=== PATIENT | female | born 1960 | race Caucasian/White ===

== ENCOUNTER 2018-10-01 10:53 | Inpatient (IN) | payer OTHER ==
[2018-10-01 11:09] VITALS: BMI 20.2
--- NOTE | 2018-10-01 14:50 | HP ---
CIWA Score - Admission Criteria [facility] Guidelines: Admission for Medically Managed Detox: Requires at least one of the followin. CIWA greater than 12 2. Seizures within the past 24 hours 3. Delirium tremens within the past 24 hours 4. Hallucinations within the past 24 hours 5. Acute intervention needed for co occurring medical disorder 6. Acute intervention needed for co occurring psychiatric disorder 7. Severe withdrawal that cannot be handled at a lower level of care (continued vomiting, continued diarrhea, abnormal vital signs) requiring intravenous medication and/or fluids 8. Admission ROS [facility] Chief Complaint: PATIENT PRESENTS FOR REHAB SERVICES FOR COCAINE AND ETOH DEPENDENCE. Allergies/Adverse Reactions: Allergies Allergy/AdvReac Type Severity Reaction Status Date / Time shellfish derived Allergy Severe Difficulty Verified 10/01/18 11:57 Breathing History of Present Illness: PATIENT PRESENTS FOR REHAB SERVICES FOR COCAINE AND ETOH DEPENDENCE. PATIENT COMPLETED DETOX TODAY 10/01 AT [facility]. PATIENT CURRENTLY ON MTD PROGRAM AT [facility] AND REPORTS CURRENT DOES OF 60MG DAILY AND LAST DOSE THIS MORNING. PATIENT STARTED DRINKING AT AGE 13, DRINKS UP TO 1.5 PINTS OF VODKA DAILY, LAST DRINK 09/26/18. PATIENT ALSO SMOKES 7-10 OF CRACK DAILY X 30 YEARS, LAST TIME SHE SMOKED WAS 09/26/18. +OCCASIONAL THC USE. HAS H/O IVDA WHILE ON MTD , 12 BAGS DAILY, LAST TIME SHE INJECTED 09/26/18. PATIENT + HX OF OVERDOSE. PATIENT DENIES SEIZURES AND FALLS. + BLACKOUTS AND DRINKING UPON WAKING UP. PATIENT PMH INCLUDES HIV + COMPLIANT WITH MEDICATION AND LAST DOSE YESTERDAY WHILE IN DETOX, HEP C (UNTREATED), SCHIZOPHRENIA AND ASTHMA/TOBACCO USE. PATIENT DENIES SI/HI. +SUICIDE ATTEMPT BY CUTTING WRISTS 2 MONTHS AGO. Exam Limitations: No Limitations - Ebola screening Have you traveled outside of the country in the last 21 days: No Have you had contact with anyone from an Ebola affected area: No Have you been sick,other than usual withdrawal symptoms: No Do you have a fever: No - Review of Systems Constitutional: Changes in sleep, Unexplained wgt Loss EENT: reports: Difficulty Swallowing Respiratory: reports: No Symptoms reported Cardiac: reports: No Symptoms Reported GI: reports: Constipated : reports: Urgency Musculoskeletal: reports: No Symptoms Reported Integumentary: reports: No Symptoms Reported Neuro: reports: No Symptoms reported Endocrine: reports: Unexplained Weight Loss Hematology: reports: Anemia Psychiatric: reports: Orientated x3, Anxious, Depressed Patient History - Patient Medical History Hx Anemia: No Hx Asthma: Yes Hx Chronic Obstructive Pulmonary Disease (COPD): No Hx Cancer: No Hx Cardiac Disorders: Yes (endocarditis) Hx Congestive Heart Failure: No Hx Hypertension: No Hx Hypercholesterolemia: No Hx Pacemaker: No HX Cerebrovascular Accident: No Hx Seizures: No Hx Dementia: No Hx Diabetes: No Hx Gastrointestinal Disorders: No Hx Liver Disease: No Hx Genitourinary Disorders: No Hx Sexually Transmitted Disorders: Yes Hx Renal Disease (ESRD): No Hx Thyroid Disease: No Hx Human Immunodeficiency Virus (HIV): Yes (diagnosed 1998) Hx Hepatitis C: Yes (untreated 2016) Hx Depression: Yes Hx Suicide Attempt: Yes (2017 self inflicted cuts) Hx Bipolar Disorder: No Hx Schizophrenia: Yes - Patient Surgical History Past Surgical History: Yes Hx Neurologic Surgery: No Hx Cataract Extraction: Yes (2000) Hx Cardiac Surgery: No Hx Lung Surgery: No Hx Breast Surgery: No Hx Breast Biopsy: No Hx Abdominal Surgery: Yes (Etopic 2008) Hx Appendectomy: No Hx Cholecystectomy: No Hx Genitourinary Surgery: No Hx Section: No Hx Orthopedic Surgery: No Hx Hysterectomy: No Anesthesia Reaction: No - PPD History Previous Implant?: Yes Documented Results: Negative w/o proof Implanted On Prior R Admission?: No PPD to be Administered?: Yes - Reproductive History Patient : No - Smoking Cessation Smoking history: Current every day smoker Have you smoked in the past 12 months: Yes Aproximately how many cigarettes per day: 40 Cigars Per Day: 0 Hx Chewing Tobacco Use: No Initiated information on smoking cessation: Yes 'Breaking Loose' booklet given: 10/01/18 - Substance & Tx. History Hx Alcohol Use: No Hx Substance Use: Yes Substance Use Type: Alcohol, Cocaine, Heroin, Prescribed Hx Substance Use Treatment: Yes (completed detox at [facility] today 09/03/18) - Substances Abused Alcohol Frequency: Daily Amount used: 2 pints of Vodka Age of first use: 15 Date of Last Use: 09/26/18 Heroin Route: Injection Frequency: Daily Amount used: 2 bundles Age of first use: 49 Date of Last Use: 09/26/18 Cocaine Route: Injection Frequency: Daily Amount used: $100 Age of first use: 21 Date of Last Use: 09/26/18 Family Disease History - Family Disease History Family Disease History: Diabetes: Father, Respiratory: Mother (tobacco use) Admission Physical Exam [facility] - Vital Signs Vital Signs: Vital Signs - 24 hr 10/01/18 10:57 Temperature 96.9 F L Pulse Rate 94 H Respiratory 18 Rate Blood Pressure 130/60 - Physical General Appearance: Yes: No Apparent Distress, Appropriately Dressed, Thin, Anxious HEENTM: Yes: Hearing grossly Normal, Normocephalic, Normal Voice, Pharynx Normal Respiratory: Yes: Chest Non-Tender, Lungs Clear, Normal Breath Sounds, No Respiratory Distress, No Accessory Muscle Use Neck: Yes: No masses,lesions,Nodules, Supple, Trachea in good position Breast: Yes: Breast Exam Deferred Cardiology: Yes: Regular Rhythm, Regular Rate, S1, S2 Abdominal: Yes: Normal Bowel Sounds, Non Tender, Soft Genitourinary: Yes: Uregency Back: Yes: Normal Inspection Musculoskeletal: Yes: full range of Motion, Gait Steady Extremities: Yes: Normal Inspection, Normal Range of Motion, Non-Tender Neurological: Yes: health policy analyst II-XII NML intact, Fully Oriented, Alert, Motor Strength 5/5, Normal Response, Depressed Affect, Other (ANXIOUS) Integumentary: Yes: Normal Color, Dry, Warm Lymphatic: Yes: Within Normal Limits - Diagnostic (1) Methadone maintenance therapy patient Current Visit: Yes Status: Chronic (2) Cocaine dependence Current Visit: Yes Status: Chronic Qualifiers: Substance use status: uncomplicated Qualified Code(s): F14.20 - Cocaine dependence, uncomplicated (3) Marijuana dependence Current Visit: Yes Status: Chronic (4) Tobacco use disorder Current Visit: Yes Status: Chronic (5) HIV positive Current Visit: Yes Status: Chronic (6) Schizophrenia Current Visit: Yes Status: Chronic Qualifiers: Schizophrenia type: unspecified Qualified Code(s): F20.9 - Schizophrenia, unspecified (7) Weight loss Current Visit: Yes Status: Acute (8) Asthma Current Visit: Yes Status: Chronic Qualifiers: Asthma complication type: unspecified Cleared for Admission [facility] - Detox or Rehab Claeared for Rehab Admission: Yes [facility] Breath Alcohol Content Breath Alcohol Content: 0 Urine Pregancy Test - Result Urine Test Results: Negative- NO Line Present Urine Drug Screen - Results Drug Screen Negative: No Urine Drug Screen Results: BZO-Benzodiazepines, MTD-Methadone Inpatient Rehab Admission - Initial Determination Are CD services needed?: Yes Free of communicable disease: Yes Not in need of hospitalization: No - Rehab Admission Criteria Previous failed treatment: Yes Poor recovery environment: Yes Comorbidities: Yes Lacks judgement: Yes Patient is meeting Inpatient Rehab admission criteria:: Yes
[2018-10-01] MEDS ORDERED: guaiFENesin/D-METHORPHAN HB 10 ML UNIT-DOSE CUPS PO PRN (15:12)
[2018-10-01] MEDS ORDERED: MENTHOL/PHENOL 1 EACH UD MM PRN (15:12)
[2018-10-01] MEDS ORDERED: MAGNESIUM CITRATE 300 ML BOTTLE PO PRN (15:12)
[2018-10-01] MEDS ORDERED: NICOTINE POLACRILEX 2 MG GUM BC PRN (15:12)
[2018-10-01] MEDS ORDERED: MAG HYDROX/AL HYDROX/SIMETH 30 ML UNIT-DOSE CUP PO PRN (15:12)
[2018-10-01] MEDS ORDERED: hydrOXYzine PAMOATE 50 MG CAPSULE (FP) PO PRN (15:12)
[2018-10-01] MEDS ORDERED: MAGNESIUM HYDROX 2400MG/30ML ORAL SUSPENSION 30 ML CUP PO PRN (15:12)
[2018-10-01] MEDS ORDERED: IBUPROFEN 400 MG TABLET (FP) PO PRN (15:12)
[2018-10-01] MEDS ORDERED: LOPERAMIDE HCL 2 MG CAPSULE PO PRN (15:12)
[2018-10-01] MEDS ORDERED: P-EPHED 60MG/TRIPROLIDI 2.5MG TABLET PO PRN (15:12)
[2018-10-01] MEDS ORDERED: ALBUTEROL SO4 8 GM HFA INHALER IH PRN (15:14)
[2018-10-01] MEDS ORDERED: TUBERCULIN PPD 5 TU/0.1ML VIAL ID ONE ×2 (17:05→22:23)
[2018-10-01] MEDS: THIAMINE HCL 100 MG TABLET (FP) PO SCH (21:11)
[2018-10-01] MEDS ORDERED: MELATONIN 5 MG TABLETS PO PRN (22:00)
[2018-10-01] MEDS ORDERED: PT OWN MED DRAWER 7, Y5N ONE (22:23)
[2018-10-02 02:10] LABS: URINE APPEARANCE CLEAR; URINE BILIRUBIN NEGATIVE (<2.0 mg/dL); URINE COLOR LTYELLOW; URINE GLUCOSE (UA) NEGATIVE (NEGATIVE); URINE KETONE NEGATIVE (NEGATIVE); URINE LEUK ESTERASE NEGATIVE (NEGATIVE); URINE NITRITE NEGATIVE (NEGATIVE); URINE PROTEIN NEGATIVE (NEGATIVE); URINE UROBILINOGEN NEGATIVE mg/dL (0.2-1.0)
[2018-10-02] MEDS ORDERED: METHADONE HCL 10 MG TABLET PO ONE (08:51)
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
[2018-10-02] MEDS ORDERED: METHADONE 40 MG, METHADONE 20 MG PO ONE (09:45)
[2018-10-02] MEDS: NICOTINE 21 MG/24 HOURS TOPICAL PATCH TD SCH (10:33)
[2018-10-02] MEDS: ELVITEG/COB/EMTRI/TENOF (GENVOYA) TABLET (NF) PO SCH (10:34)
[2018-10-02] MEDS: PRENATAL VITAMINS W/ FOLIC ACID TABLET (FP) PO SCH (10:35)
[2018-10-02] MEDS ORDERED: METHADONE HCL 40 MG DISPERSABLE TABLET ONE (10:37)
[2018-10-02] MEDS ORDERED: METHADONE HCL 10 MG TABLET ONE (10:37)
[2018-10-02] MEDS ORDERED: FLU VACCINE QUAD 60 MCG/0.5 ML (MDV 18-19) IM ONE (12:00)
[2018-10-02 12:35] LABS: HEMATOCRIT 25.1 % (32.4-45.2); HEMOGLOBIN 8.3 GM/dL (10.7-15.3); MCH 28.6 pg (25.7-33.7); MEAN CELL VOLUME 86.6 fl (80-96); MEAN PLT VOLUME 8.8 fl (7.5-11.1); PLATELET COUNT 112 K/MM3 (134-434); RDW 17.9 % (11.6-15.6); WHITE BLOOD COUNT 4.6 K/mm3 (4.0-10.0)
[2018-10-02 12:44] LABS: ALBUMIN 2.7 g/dl (3.4-5.0); ALK PHOS 84 U/L (45-117); ANION GAP 6 MMOL/L (8-16); BILIRUBIN,TOTAL 0.2 mg/dL (0.2-1); BLOOD UREA NITROGEN 13 mg/dL (7-18); CALCIUM 8.1 mg/dL (8.5-10.1); CHLORIDE 111 mmol/L (98-107); CO2 28 mmol/L (21-32); CREATININE 0.6 mg/dL (0.55-1.3); GLUCOSE,RANDOM 121 mg/dL (74-106); POTASSIUM 4.2 mmol/L (3.5-5.1); SGOT/AST 15 U/L (15-37); SGPT/ALT 19 U/L (13-61); SODIUM 145 mmol/L (136-145); TOT PROT 6.7 g/dl (6.4-8.2)
[2018-10-02] MEDS: GABAPENTIN 400 MG CAPSULE (FP) PO SCH ×2 (13:34→21:47)
[2018-10-02] MEDS: THIAMINE HCL 100 MG TABLET (FP) PO SCH (21:45)
[2018-10-02] MEDS: OLANZapine 10 MG TABLET PO SCH (21:47)
[2018-10-02] MEDS: traZODone HCL 100 MG TABLET (FP) PO SCH (21:47)
[2018-10-02] MEDS: SERTRALINE HCL 50 MG TABLET (FP) PO SCH (21:47)
[2018-10-03] MEDS ORDERED: METHADONE HCL 10 MG TABLET PO SCH (06:00)
[2018-10-03] MEDS ORDERED: METHADONE HCL 40 MG DISPERSABLE TABLET ONE (06:03)
[2018-10-03] MEDS ORDERED: METHADONE HCL 10 MG TABLET ONE (06:03)
--- NOTE | 2018-10-03 08:09 | PN ---
[facility] Progress Note Note: I was notified by the nurse, Ms. Yuliya Solano that patient had a temperature of T102.7F Vital Signs Temperature 102.7 F H 10/03/18 07:39 Pulse Rate 103 H 10/03/18 07:39 Respiratory Rate 18 10/03/18 07:39 Blood Pressure 136/75 10/03/18 07:39 O2 Sat by Pulse Oximetry (%) Action: Labs - CBC, BMP and urinalysis ordered Tylenol as ordered
[2018-10-03] MEDS: METHADONE 40 MG, METHADONE 20 MG PO SCH (08:49)
[2018-10-03] MEDS: GABAPENTIN 400 MG CAPSULE (FP) PO SCH ×3 (08:50→22:02)
[2018-10-03] MEDS: ACETAMINOPHEN 325 MG TABLET (FP) PO PRN ×2 (09:35→22:03)
[2018-10-03] MEDS ORDERED: PT OWN MED DRAWER 7, Y5N ONE (10:39)
[2018-10-03] MEDS: PRENATAL VITAMINS W/ FOLIC ACID TABLET (FP) PO SCH (10:40)
[2018-10-03] MEDS: ELVITEG/COB/EMTRI/TENOF (GENVOYA) TABLET (NF) PO SCH (10:40)
[2018-10-03] MEDS: NICOTINE 21 MG/24 HOURS TOPICAL PATCH TD SCH (10:40)
[2018-10-03 13:32] LABS: HEMATOCRIT 28.1 % (32.4-45.2); HEMOGLOBIN 9.3 GM/dL (10.7-15.3); MCH 28.6 pg (25.7-33.7); MCHC 33.1 g/dl (32.0-36.0); MEAN CELL VOLUME 86.4 fl (80-96); MEAN PLT VOLUME 8.8 fl (7.5-11.1); PLATELET COUNT 152 K/MM3 (134-434); RBC 3.25 M/mm3 (3.60-5.2); RDW 17.8 % (11.6-15.6); WHITE BLOOD COUNT 7.8 K/mm3 (4.0-10.0)
[2018-10-03 13:49] LABS: ANION GAP 3 MMOL/L (8-16); BLOOD UREA NITROGEN 13 mg/dL (7-18); CHLORIDE 104 mmol/L (98-107); CO2 31 mmol/L (21-32); CREATININE 0.7 mg/dL (0.55-1.3); GLUCOSE,RANDOM 104 mg/dL (74-106); SODIUM 137 mmol/L (136-145)
--- NOTE | 2018-10-03 13:55 | PN ---
[facility] Progress Note Note: patient running temp last night and this morning alert,oriented x 3 latest temp 97.5 no complaint Vital Signs Temperature 98.5 F 10/03/18 13:38 Pulse Rate 98 H 10/03/18 09:26 Respiratory Rate 16 10/03/18 09:26 Blood Pressure 107/68 10/03/18 09:26 O2 Sat by Pulse Oximetry (%) CBC WBC 7.8 K/mm3 (4.0-10.0) 10/03/18 11:00 RBC 3.25 M/mm3 (3.60-5.2) L 10/03/18 11:00 Hgb 9.3 GM/dL (10.7-15.3) L 10/03/18 11:00 Hct 28.1 % (32.4-45.2) L 10/03/18 11:00 MCV 86.4 fl (80-96) 10/03/18 11:00 MCH 28.6 pg (25.7-33.7) 10/03/18 11:00 MCHC 33.1 g/dl (32.0-36.0) 10/03/18 11:00 RDW 17.8 % (11.6-15.6) H 10/03/18 11:00 Plt Count 152 K/MM3 (134-434) D 10/03/18 11:00 MPV 8.8 fl (7.5-11.1) 10/03/18 11:00 CMP Sodium 137 mmol/L (136-145) 10/03/18 10:50 Potassium 5.0 mmol/L (3.5-5.1) 10/03/18 10:50 Chloride 104 mmol/L (98-107) 10/03/18 10:50 Carbon Dioxide 31 mmol/L (21-32) 10/03/18 10:50 Anion Gap 3 MMOL/L (8-16) L 10/03/18 10:50 BUN 13 mg/dL (7-18) 10/03/18 10:50 Creatinine 0.7 mg/dL (0.55-1.3) 10/03/18 10:50 Creat Clearance w eGFR > 60 (>60) 10/03/18 10:50 Random Glucose 104 mg/dL (74-106) 10/03/18 10:50 Calcium 8.0 mg/dL (8.5-10.1) L 10/03/18 10:50 Total Bilirubin 0.2 mg/dL (0.2-1) 10/02/18 10:59 AST 15 U/L (15-37) 10/02/18 10:59 ALT 19 U/L (13-61) 10/02/18 10:59 Alkaline Phosphatase 84 U/L (45-117) 10/02/18 10:59 Total Protein 6.7 g/dl (6.4-8.2) 10/02/18 10:59 Albumin 2.7 g/dl (3.4-5.0) L 10/02/18 10:59 Laboratory Last Values WBC 7.8 K/mm3 (4.0-10.0) 10/03/18 11:00 RBC 3.25 M/mm3 (3.60-5.2) L 10/03/18 11:00 Hgb 9.3 GM/dL (10.7-15.3) L 10/03/18 11:00 Hct 28.1 % (32.4-45.2) L 10/03/18 11:00 MCV 86.4 fl (80-96) 10/03/18 11:00 MCH 28.6 pg (25.7-33.7) 10/03/18 11:00 MCHC 33.1 g/dl (32.0-36.0) 10/03/18 11:00 RDW 17.8 % (11.6-15.6) H 10/03/18 11:00 Plt Count 152 K/MM3 (134-434) D 10/03/18 11:00 MPV 8.8 fl (7.5-11.1) 10/03/18 11:00 Sodium 137 mmol/L (136-145) 10/03/18 10:50 Potassium 5.0 mmol/L (3.5-5.1) 10/03/18 10:50 Chloride 104 mmol/L (98-107) 10/03/18 10:50 Carbon Dioxide 31 mmol/L (21-32) 10/03/18 10:50 Anion Gap 3 MMOL/L (8-16) L 10/03/18 10:50 BUN 13 mg/dL (7-18) 10/03/18 10:50 Creatinine 0.7 mg/dL (0.55-1.3) 10/03/18 10:50 Creat Clearance w eGFR > 60 (>60) 10/03/18 10:50 Random Glucose 104 mg/dL (74-106) 10/03/18 10:50 Calcium 8.0 mg/dL (8.5-10.1) L 10/03/18 10:50 Total Bilirubin 0.2 mg/dL (0.2-1) 10/02/18 10:59 AST 15 U/L (15-37) 10/02/18 10:59 ALT 19 U/L (13-61) 10/02/18 10:59 Alkaline Phosphatase 84 U/L (45-117) 10/02/18 10:59 Total Protein 6.7 g/dl (6.4-8.2) 10/02/18 10:59 Albumin 2.7 g/dl (3.4-5.0) L 10/02/18 10:59 Urine Color Ltyellow 10/02/18 00:30 Urine Appearance Clear 10/02/18 00:30 Urine pH 6.0 (5.0-8.0) 10/02/18 00:30 Ur Specific [place] 1.012 (1.010-1.035) 10/02/18 00:30 Urine Protein Negative (NEGATIVE) 10/02/18 00:30 Urine Glucose (UA) Negative (NEGATIVE) 10/02/18 00:30 Urine Ketones Negative (NEGATIVE) 10/02/18 00:30 Urine Blood Negative (NEGATIVE) 10/02/18 00:30 Urine Nitrite Negative (NEGATIVE) 10/02/18 00:30 Urine Bilirubin Negative (<2.0 mg/dL) 10/02/18 00:30 Urine Urobilinogen Negative mg/dL (0.2-1.0) 10/02/18 00:30 Ur Leukocyte Esterase Negative (NEGATIVE) 10/02/18 00:30 RPR Titer Nonreactive (NONREACTIVE) 10/02/18 10:59 alert,oriented x 3 no complaint heent normal lung clear,no wheezing no calf tenderness treatment continue oral fluid ,hydration,close monitoring
[2018-10-03 15:38] LABS: URINE APPEARANCE CLEAR; URINE BILIRUBIN NEGATIVE (<2.0 mg/dL); URINE COLOR LTYELLOW; URINE GLUCOSE (UA) NEGATIVE (NEGATIVE); URINE KETONE NEGATIVE (NEGATIVE); URINE LEUK ESTERASE NEGATIVE (NEGATIVE); URINE NITRITE NEGATIVE (NEGATIVE); URINE PROTEIN NEGATIVE (NEGATIVE); URINE UROBILINOGEN NEGATIVE mg/dL (0.2-1.0)
[2018-10-03] MEDS: traZODone HCL 100 MG TABLET (FP) PO SCH (22:02)
[2018-10-03] MEDS: SERTRALINE HCL 50 MG TABLET (FP) PO SCH (22:02)
[2018-10-03] MEDS: THIAMINE HCL 100 MG TABLET (FP) PO SCH (22:02)
[2018-10-03] MEDS: OLANZapine 10 MG TABLET PO SCH (22:04)
[2018-10-04] MEDS ORDERED: METHADONE HCL 10 MG TABLET ONE (06:06)
[2018-10-04] MEDS ORDERED: METHADONE HCL 40 MG DISPERSABLE TABLET ONE (06:07)
[2018-10-04] MEDS: GABAPENTIN 400 MG CAPSULE (FP) PO SCH ×3 (08:25→22:05)
[2018-10-04] MEDS: METHADONE 40 MG, METHADONE 20 MG PO SCH (08:27)
[2018-10-04] MEDS: ELVITEG/COB/EMTRI/TENOF (GENVOYA) TABLET (NF) PO SCH (10:06)
[2018-10-04] MEDS: PRENATAL VITAMINS W/ FOLIC ACID TABLET (FP) PO SCH (10:06)
[2018-10-04] MEDS: NICOTINE 21 MG/24 HOURS TOPICAL PATCH TD SCH (10:06)
--- NOTE | 2018-10-04 13:41 | PN ---
S Progress Note Note: urine for c/s showed postive for lactose fermenting bacilli uti treated with bactrim ds 1 tab po bid for 7 days fluid and water Vital Signs Temperature 97.4 F L 10/04/18 07:31 Pulse Rate 70 10/04/18 07:31 Respiratory Rate 18 10/04/18 07:31 Blood Pressure 121/66 10/04/18 07:31 O2 Sat by Pulse Oximetry (%) close monitoring
[2018-10-04] MEDS: SULFAMETHOXAZOLE/TRIMETHOPRIM 800MG/160MG D.S. TABLET PO SCH ×2 (14:15→21:59)
[2018-10-04] MEDS: ACETAMINOPHEN 325 MG TABLET (FP) PO PRN (21:59)
[2018-10-04] MEDS: traZODone HCL 100 MG TABLET (FP) PO SCH (22:05)
[2018-10-04] MEDS: SERTRALINE HCL 50 MG TABLET (FP) PO SCH (22:05)
[2018-10-04] MEDS: OLANZapine 10 MG TABLET PO SCH (22:05)
[2018-10-04] MEDS: THIAMINE HCL 100 MG TABLET (FP) PO SCH (22:05)
[2018-10-05] MEDS: ACETAMINOPHEN 325 MG TABLET (FP) PO PRN ×2 (04:30→17:32)
[2018-10-05] MEDS ORDERED: METHADONE HCL 40 MG DISPERSABLE TABLET ONE (05:50)
[2018-10-05] MEDS ORDERED: METHADONE HCL 10 MG TABLET ONE (05:50)
[2018-10-05] MEDS ORDERED: PT OWN MED DRAWER 7, Y5N ONE (05:53)
[2018-10-05] MEDS: METHADONE 40 MG, METHADONE 20 MG PO SCH (06:09)
[2018-10-05] MEDS: GABAPENTIN 400 MG CAPSULE (FP) PO SCH ×3 (06:56→21:52)
[2018-10-05] MEDS: PRENATAL VITAMINS W/ FOLIC ACID TABLET (FP) PO SCH (10:55)
[2018-10-05] MEDS: ELVITEG/COB/EMTRI/TENOF (GENVOYA) TABLET (NF) PO SCH (10:55)
[2018-10-05] MEDS: NICOTINE 21 MG/24 HOURS TOPICAL PATCH TD SCH (10:55)
[2018-10-05] MEDS: SULFAMETHOXAZOLE/TRIMETHOPRIM 800MG/160MG D.S. TABLET PO SCH ×2 (10:55→21:52)
--- NOTE | 2018-10-05 13:23 | PN ---
[facility] Progress Note Note: PT C/O SORE THROAT. HX HIV+ AND ON GENVOYA. P ON BACTRIM DS 1 TAB PO X 7 DAYS FOR UTI. Vital Signs - 24 hr 10/04/18 10/04/18 10/05/18 22:10 23:58 00:30 Temperature 104.7 F H 102.4 F H Pulse Rate 109 H Respiratory 18 18 Rate Blood Pressure 167/64 10/05/18 10/05/18 10/05/18 03:30 04:39 07:27 Temperature 100.9 F H 98.0 F Pulse Rate 85 94 H Respiratory 18 18 18 Rate Blood Pressure 109/67 103/58 L ORAL EXAM:WHITE PATCHES OF EXUDATE ON OROPHARYNDEAL PILLARS AND TONGUE. THROAT SLIGHTLY INJECTED. A:ORAL CANDIDIASIS DRY MUCOUS MEMBRANE OF MOUTH/DRY SCALY LIPS/TONGUE(PT PICKING ON TONGUE/LIPS) PLAN:NYSTATIN ORAL SUSPENSION 100,000 UNITS/ML 5 ML QID X 14 DAYS INCREASE PO FLUIDS TOLERATED WATER PITCHER BY BEDSIDE
--- NOTE | 2018-10-05 13:37 | PN ---
[facility] Progress Note Note: PT REQUESTED METHADONE DOSE OF 60 MG PO DAILY TO BE REDUCED DUE TO DROWSINESS. PT'S COUNSELOR FATOU DEJESUS CONTACTED PT'S METHADONE CLINIC AND LETTER BY NAHUM BECKETT M.D(EXECUTOR OF ESTATE) TO AUTHORIZE DECREASE BY 10 MG /DAY IN ORIGINAL DOSE TO METHADONE 50 MG PO DAILY FAXED TO THIS PROGRAM. COPY OF DOCUMENT PUT IN CHART BY NURSE ADAMS. PLAN:DECREASE METHADONE BY 10 MG/DAY TO 50 MG PO DAILY STARTING ON 10/06/18 STAFF TO MONITOR PT'S STATUS AND EVALUATE NEEDED.
[2018-10-05] MEDS: NYSTATIN 500,000 UNITS/5 ML SUSPENSION PO SCH (17:32)
[2018-10-05] MEDS ORDERED: NYSTATIN 500,000 UNITS/5 ML SUSPENSION PO SCH (18:00)
[2018-10-05] MEDS: SERTRALINE HCL 50 MG TABLET (FP) PO SCH (21:51)
[2018-10-05] MEDS: THIAMINE HCL 100 MG TABLET (FP) PO SCH (21:51)
[2018-10-05] MEDS: OLANZapine 10 MG TABLET PO SCH (21:51)
[2018-10-05] MEDS: traZODone HCL 100 MG TABLET (FP) PO SCH (21:52)
[2018-10-06] MEDS: NYSTATIN 500,000 UNITS/5 ML SUSPENSION PO SCH ×5 (00:39→23:02)
[2018-10-06] MEDS ORDERED: METHADONE HCL 10 MG TABLET PO SCH (06:00)
[2018-10-06] MEDS ORDERED: METHADONE HCL 10 MG TABLET ONE (06:07)
[2018-10-06] MEDS ORDERED: METHADONE HCL 40 MG DISPERSABLE TABLET ONE (06:08)
[2018-10-06] MEDS: METHADONE 40 MG, METHADONE 10 MG PO SCH (06:58)
[2018-10-06] MEDS: GABAPENTIN 400 MG CAPSULE (FP) PO SCH (06:59)
[2018-10-06] MEDS ORDERED: PT OWN MED DRAWER 7, Y5N ONE (08:41)
[2018-10-06] MEDS: ELVITEG/COB/EMTRI/TENOF (GENVOYA) TABLET (NF) PO SCH (10:25)
[2018-10-06] MEDS: NICOTINE 21 MG/24 HOURS TOPICAL PATCH TD SCH (10:25)
[2018-10-06] MEDS: PRENATAL VITAMINS W/ FOLIC ACID TABLET (FP) PO SCH (10:25)
[2018-10-06] MEDS: SULFAMETHOXAZOLE/TRIMETHOPRIM 800MG/160MG D.S. TABLET PO SCH ×2 (10:25→21:49)
[2018-10-06] MEDS: ACETAMINOPHEN 325 MG TABLET (FP) PO PRN ×2 (11:44→20:38)
--- NOTE | 2018-10-06 11:49 | PN ---
[facility] Progress Note Note: PATIENT REPORTED TO COUNSELOR THAT SHE IS HAVING HALLUCINATIONS OF FAMILY MEMBERS. PATIENT EVALUATED AND STATES " I AM SEEING MY BROTHER AND UNCLE AND IT IS MAKING ME MAD. I AM ALSO SEEING CANDY ON THE FLOOR AND WHEN I STEP ON IT IS NOT THERE!" PATIENT DENIES THAT VISUAL HALLUCINATIONS ARE STATING TO HURT HERSELF OR ANYONE ELSE. PATIENT ALSO DENIES SI/HI. PATIENT BEGAN CRYING SHE IS CONCERNED THIS WILL AFFECT HER REHAB. PATIENT DENIES CP, SOB AND HEADACHE. C/ O SOME DIZZINESS. CURRENTLY ON MMTP WHICH WAS DECREASED YESTERDAY. Vital Signs Temperature 99.2 F 10/06/18 09:19 Pulse Rate 73 10/06/18 09:19 Respiratory Rate 17 10/06/18 09:19 Blood Pressure 106/55 L 10/06/18 09:19 O2 Sat by Pulse Oximetry (%) Laboratory Tests 10/02/18 10/02/18 10/02/18 00:30 10:59 10:59 WBC 4.6 RBC 2.90 L Hgb 8.3 L Hct 25.1 L MCV 86.6 MCH 28.6 MCHC 33.0 RDW 17.9 H Plt Count 112 L MPV 8.8 Sodium 145 Potassium 4.2 Chloride 111 H Carbon Dioxide 28 Anion Gap 6 L BUN 13 Creatinine 0.6 Creat Clearance w eGFR > 60 POC Glucometer Random Glucose 121 H Calcium 8.1 L Total Bilirubin 0.2 AST 15 ALT 19 Alkaline Phosphatase 84 Total Protein 6.7 Albumin 2.7 L Urine Color Ltyellow Urine Appearance Clear Urine pH 6.0 Ur Specific [place] 1.012 Urine Protein Negative Urine Glucose (UA) Negative Urine Ketones Negative Urine Blood Negative Urine Nitrite Negative Urine Bilirubin Negative Urine Urobilinogen Negative Ur Leukocyte Esterase Negative RPR Titer 10/02/18 10/03/18 10/03/18 10:59 10:50 11:00 WBC 7.8 RBC 3.25 L Hgb 9.3 L Hct 28.1 L MCV 86.4 MCH 28.6 MCHC 33.1 RDW 17.8 H Plt Count 152 D MPV 8.8 Sodium 137 Potassium 5.0 Chloride 104 Carbon Dioxide 31 Anion Gap 3 L BUN 13 Creatinine 0.7 Creat Clearance w eGFR > 60 POC Glucometer Random Glucose 104 Calcium 8.0 L Total Bilirubin AST ALT Alkaline Phosphatase Total Protein Albumin Urine Color Urine Appearance Urine pH Ur Specific [place] Urine Protein Urine Glucose (UA) Urine Ketones Urine Blood Urine Nitrite Urine Bilirubin Urine Urobilinogen Ur Leukocyte Esterase RPR Titer Nonreactive 10/03/18 10/04/18 11:37 06:41 WBC RBC Hgb Hct MCV MCH MCHC RDW Plt Count MPV Sodium Potassium Chloride Carbon Dioxide Anion Gap BUN Creatinine Creat Clearance w eGFR POC Glucometer 108 Random Glucose Calcium Total Bilirubin AST ALT Alkaline Phosphatase Total Protein Albumin Urine Color Ltyellow Urine Appearance Clear Urine pH 8.0 D Ur Specific [place] 1.011 Urine Protein Negative Urine Glucose (UA) Negative Urine Ketones Negative Urine Blood Negative Urine Nitrite Negative Urine Bilirubin Negative Urine Urobilinogen Negative Ur Leukocyte Esterase Negative RPR Titer PE: ALERT AND ORIENTED TO NAME AND PLACE. UNSURE OF DATE-STATES IT IS 2018 SKIN WARM AND DRY EXT FULL ROM,NO EDEMA + ANXIOUS, TEARFUL, ANGRY A/P: VISUAL HALLUCINATIONS ANXIETY/ANGER DIZZINESS-EPISODIC WILL ORDER PSYCH CONSULT ENCOURAGE ORAL FLUIDS MONITOR V/S CONTINUE TO MONITOR CLINICALLY
--- NOTE | 2018-10-06 12:09 | PN ---
[facility] Progress Note Note: Requested by [employer], Flor Pastrana to evaluate patient for visual hallucinations. Reportedly she sees family members in the group room as well as piece of gum( bazooka) on the floor. Psychiatric consult done on 10/02/[address] Huggins read and appreciated. Patient is a 58 years old female with history of opioid(MMTP), cocaine, cannabis use admitted to this unit on 10/01/17 for rehabilitation. She was seen by Dr Huggins on 10/02/18 who diagnosed her with Schizophrenia and placed her on Gabapentin 800 mg po TID, Zyprexa 20 mg po HS, Zoloft 200 mg po daily and Trazadone 100 mg po HS. At present patient is very drowsy and cannot stay awake long enough for an inappropriate interview Recommendations: Hold Trazadone and Gabapentin till further order Decrease Zoloft dosage to 100 mg po daily Start Risperdal 0.5 mg Q 4hrs prn for hallucinations Consider decreasing methadone dosage further
[2018-10-06] MEDS ORDERED: risperiDONE 0.5 MG TABLET (FP) PO PRN (12:12)
[2018-10-06] MEDS: OLANZapine 10 MG TABLET PO SCH (21:48)
[2018-10-06] MEDS: THIAMINE HCL 100 MG TABLET (FP) PO SCH (21:49)
[2018-10-07] MEDS ORDERED: METHADONE HCL 40 MG DISPERSABLE TABLET ONE (03:33)
[2018-10-07] MEDS ORDERED: METHADONE HCL 10 MG TABLET ONE (03:33)
--- NOTE | 2018-10-07 07:41 | PN ---
[facility] Progress Note Note: ASKED TO SEE PATIENT FOR FEVER 104. CLIENT REPORTS SOB, PRODUCTIVE COUGH WITH YELLOWISH GREENISH SPUTUM. SHE ALSO REPORTS FEELING DIZZY, AND HAVING VISUAL HALLUCINATIONS. REPORTS SHE SEE THINGS CRAWLING ON THE FLOOR AND BECOMING MORE FORGETFUL. DENIES CHEST PAIN, CHILLS, N/V/D. SEEN AMBULATING ON UNIT ANXIOUS, IRRITABLE, COMBATIVE A/O X2 ON 1:1 OBSERVATION FOR SAFETY SKIN FLUSHED HOT TO TOUCH LUNGS- COARSE BREATH SOUNDS 02 SAT 90 % RA Vital Signs - 24 hr 10/06/18 10/06/18 10/06/18 09:19 11:40 13:40 Temperature 99.2 F 97 F L 98.6 F Pulse Rate 73 69 71 Respiratory 17 17 16 Rate Blood Pressure 106/55 L 100/59 L 100/64 10/06/18 10/06/18 10/06/18 15:40 17:40 19:40 Temperature 99.7 F H 98.4 F 102 F H Pulse Rate 80 103 H 114 H Respiratory 18 20 19 Rate Blood Pressure 112/66 168/69 162/73 10/06/18 10/06/18 10/07/18 21:40 23:40 00:30 Temperature 102.7 F H 100.4 F H Pulse Rate 99 H 88 Respiratory 18 16 16 Rate Blood Pressure 145/65 103/53 L 10/07/18 10/07/18 03:40 07:40 Temperature 99.9 F H 104.4 F H Pulse Rate 86 98 H Respiratory 16 16 Rate Blood Pressure 116/56 L 148/68 Laboratory Tests 10/02/18 10/02/18 10/02/18 00:30 10:59 10:59 WBC 4.6 RBC 2.90 L Hgb 8.3 L Hct 25.1 L MCV 86.6 MCH 28.6 MCHC 33.0 RDW 17.9 H Plt Count 112 L MPV 8.8 Sodium 145 Potassium 4.2 Chloride 111 H Carbon Dioxide 28 Anion Gap 6 L BUN 13 Creatinine 0.6 Creat Clearance w eGFR > 60 POC Glucometer Random Glucose 121 H Calcium 8.1 L Total Bilirubin 0.2 AST 15 ALT 19 Alkaline Phosphatase 84 Total Protein 6.7 Albumin 2.7 L Urine Color Ltyellow Urine Appearance Clear Urine pH 6.0 Ur Specific [place] 1.012 Urine Protein Negative Urine Glucose (UA) Negative Urine Ketones Negative Urine Blood Negative Urine Nitrite Negative Urine Bilirubin Negative Urine Urobilinogen Negative Ur Leukocyte Esterase Negative RPR Titer 10/02/18 10/03/18 10/03/18 10:59 10:50 11:00 WBC 7.8 RBC 3.25 L Hgb 9.3 L Hct 28.1 L MCV 86.4 MCH 28.6 MCHC 33.1 RDW 17.8 H Plt Count 152 D MPV 8.8 Sodium 137 Potassium 5.0 Chloride 104 Carbon Dioxide 31 Anion Gap 3 L BUN 13 Creatinine 0.7 Creat Clearance w eGFR > 60 POC Glucometer Random Glucose 104 Calcium 8.0 L Total Bilirubin AST ALT Alkaline Phosphatase Total Protein Albumin Urine Color Urine Appearance Urine pH Ur Specific [place] Urine Protein Urine Glucose (UA) Urine Ketones Urine Blood Urine Nitrite Urine Bilirubin Urine Urobilinogen Ur Leukocyte Esterase RPR Titer Nonreactive 10/03/18 10/04/18 11:37 06:41 WBC RBC Hgb Hct MCV MCH MCHC RDW Plt Count MPV Sodium Potassium Chloride Carbon Dioxide Anion Gap BUN Creatinine Creat Clearance w eGFR POC Glucometer 108 Random Glucose Calcium Total Bilirubin AST ALT Alkaline Phosphatase Total Protein Albumin Urine Color Ltyellow Urine Appearance Clear Urine pH 8.0 D Ur Specific [place] 1.011 Urine Protein Negative Urine Glucose (UA) Negative Urine Ketones Negative Urine Blood Negative Urine Nitrite Negative Urine Bilirubin Negative Urine Urobilinogen Negative Ur Leukocyte Esterase Negative RPR Titer A- FEVER, AIDS, UTI P- 58 Y.O. FEMALE ADMITTED TO INPATIENT REHAB ON 10/01/2018 AFTER DETOX. PMHX HIV /AIDS, ALCOHOL AND COCAINE DEPENDENCE, ASTHMA NOW WITH VISUAL HALLUCINATIONS- 1: 1 OBSERVATION FOR SAFETY WITH INCREASING CONFUSION/DELIRIUM, FEVER FOR 24 HOURS ON BACTRIM TX FOR UTI- ECOLI 02 NC @ 2L TRANSFER CLIENT TO [facility] FOR EVAL CLIENT ENDORSED TO [facility]
[2018-10-07 07:47] VITALS: BP 148/68; PULSE 98; TEMP 104.4
[2018-10-07] MEDS: NYSTATIN 500,000 UNITS/5 ML SUSPENSION PO SCH ×2 (07:56→11:25)
[2018-10-07] MEDS: METHADONE 40 MG, METHADONE 10 MG PO SCH (07:56)
[2018-10-07] MEDS ORDERED: SERTRALINE HCL 50 MG TABLET (FP) PO SCH (10:00)
[2018-10-07] MEDS: SULFAMETHOXAZOLE/TRIMETHOPRIM 800MG/160MG D.S. TABLET PO SCH (10:52)
[2018-10-07] MEDS: PRENATAL VITAMINS W/ FOLIC ACID TABLET (FP) PO SCH (10:53)
[2018-10-07] MEDS: ELVITEG/COB/EMTRI/TENOF (GENVOYA) TABLET (NF) PO SCH (10:53)
[2018-10-07] MEDS: NICOTINE 21 MG/24 HOURS TOPICAL PATCH TD SCH (10:53)
== END 2018-10-07 12:24 | disposition short-term general hospital (02) | DRG 772 ==
LOC: YASAS 10:53 → Y3E 15:39
PROVIDERS: ADMIT Neuromusculoskeletal Medicine & OMM; ATTEND Neuromusculoskeletal Medicine & OMM
PROC: HZ42ZZZ Group Counseling for Substance Abuse Treatment, Cognitive-Behavioral (ICD-10-PCS; principal; 2018-10-01)
DX: F10.20 Alcohol dependence, uncomplicated (principal); F11.20 Opioid dependence, uncomplicated; F14.20 Cocaine dependence, uncomplicated; F12.20 Cannabis dependence, uncomplicated; F17.210 Nicotine dependence, cigarettes, uncomplicated; F20.9 Schizophrenia, unspecified; F41.9 Anxiety disorder, unspecified; R44.1 Visual hallucinations; R45.4 Irritability and anger; B20 Human immunodeficiency virus [HIV] disease; B37.0 Candidal stomatitis; B18.2 Chronic viral hepatitis C; B96.89 Other specified bacterial agents as the cause of diseases classified elsewhere; N39.0 Urinary tract infection, site not specified; R50.9 Fever, unspecified; R05 Cough; R42 Dizziness and giddiness; G62.9 Polyneuropathy, unspecified; Z91.013 Allergy to seafood; Z91.5 Personal history of self-harm
CPT/HCPCS: 36415; 80048; 80053; 81003; 82962; 85027; 86593; 87086; 87186; 90688; G0008

== ENCOUNTER 2018-10-07 08:32 | Inpatient (IN) | payer OTHER ==
--- NOTE | 2018-10-07 08:57 | PDOC ---
History of Present Illness - General History Source: Patient Exam Limitations: No Limitations - History of Present Illness Initial Comments: 10/07/18 09:21 The patient is a 58 year old female, with a significant past medical history of HIV (CD4 low, viral load detectable), Hepatitis C, IVDU (heroin and cocaine) who presents to the emergency department with dyspnea and fevers for a few days sent from [facility]. The patient denies chest pain, headache and dizziness. The patient denies chills, nausea, vomit, diarrhea and constipation. The patient denies dysuria, frequency, urgency and hematuria. Allergies: NKDA <Melissa Nixon - Last Filed: 10/07/18 09:50> <Allan Lazcano - Last Filed: 10/07/18 12:44> - General Chief Complaint: SIRS, Suspected/Possible Stated Complaint: FEVER Time Seen by Provider: 10/07/18 08:44 Past History <Melissa Nixon - Last Filed: 10/07/18 09:50> - Past Medical History Anemia: No Asthma: Yes Cancer: No Cardiac Disorders: Yes (endocarditis) CVA: No COPD: No CHF: No Dementia: No Diabetes: No GI Disorders: No Disorders: No HTN: No Hypercholesterolemia: No Kidney Stones: No Liver Disease: No Seizures: No Thyroid Disease: No - Surgical History Abdominal Surgery: Yes ([facility]topic 2008) Appendectomy: No Cardiac Surgery: No Cholecystectomy: No Lung Surgery: No Neurologic Surgery: No Orthopedic Surgery: No - Reproductive History PID: No - Suicide/Smoking/Psychosocial Hx Smoking History: Current every day smoker Have you smoked in the past 12 months: Yes Number of Cigarettes Smoked Daily: 20 Cigars Per Day: 0 Information on smoking cessation initiated: No 'Breaking Loose' booklet given: 10/01/18 Hx Alcohol Use: Yes Drug/Substance Use Hx: Yes (heroin, cocaine) Substance Use Type: Alcohol, Cocaine, Heroin, Prescribed Hx Substance Use Treatment: Yes (completed detox at [facility] today 09/03/18) <Allan Lazcano - Last Filed: 10/07/18 12:44> - Past Medical History Allergies/Adverse Reactions: Allergies Allergy/AdvReac Type Severity Reaction Status Date / Time shellfish derived Allergy Severe Difficulty Verified 10/07/18 08:37 Breathing Home Medications: Ambulatory Orders Elviteg/Cob/Emtri/Tenof Alafen [Genvoya Tablet] 1 each PO DAILY 10/01/18 Gabapentin 800 mg PO TID 10/01/18 Olanzapine [Zyprexa] 20 mg PO HS 10/01/18 Sertraline HCl [Zoloft] 200 mg PO HS 10/01/18 Review of Systems - Review of Systems Able to Perform ROS?: Yes Comments:: 10/07/18 09:52 CONSTITUTIONAL: (+) fever, no chills, no fatigue EYES: No visual changes ENT: No ear pain, no sore throat CARDIOVASCULAR: No chest pain, no palpitations RESPIRATORY: (+) SOB. No cough, GI: No abdominal pain, no nausea, no vomiting, no constipation, no diarrhea GENITOURINARY: No dysuria, no frequency, no hematuria MUSKULOSKELETAL: No backpain, no joint pain, no myalgias SKIN: No rash NEURO: No headache <Melissa Nixon - Last Filed: 10/07/18 09:50> *Physical Exam - Vital Signs Last Vital Signs Temp Pulse Resp BP Pulse Ox 102.7 F H 92 H 18 120/77 90 L 10/07/18 08:37 10/07/18 08:37 10/07/18 08:37 10/07/18 08:37 10/07/18 08:37 <Melissa Nixon - Last Filed: 10/07/18 09:50> - Vital Signs Last Vital Signs Temp Pulse Resp BP Pulse Ox 102.7 F H 92 H 18 120/77 90 L 10/07/18 08:37 10/07/18 08:37 10/07/18 08:37 10/07/18 08:37 10/07/18 08:37 - Physical Exam Comments: 10/07/18 10:36 EXAMINATION CONSTITUTIONAL: Awake alert, cachectic, appears agitated; hypoxic to 90% on room air; febrile; HEAD: Normocephalic; atraumatic EYES: PERRL; EOM intact; no photophobia ENMT: External appears normal; patient is edentulous; + oral thrush and leukoplakia present NECK: Supple; non-tender; no cervical lymphadenopathy; no meningismus CARD: Normal S1, S2; no murmurs, rubs, or gallops RESP: Tachypneic, dyspneic; speaks full sentences. Diffuse inspiratory and expiratory wheezing and rhonchi in all lung campbell; ABD: Soft, non-distended; non-tender; no palpable organomegaly, no palpable hernias EXT: Normal ROM in all four extremities; non-tender to palpation; distal pulses intact; + puncture anna to Ues b/l SKIN: Warm, dry, no petechiae NEURO: Patient alert, oriented to self, place and date; moving all extremity symmetrically, ambulates with a slight limp <Allan Lazcano - Last Filed: 10/07/18 12:44> Moderate Sedation - Procedure Monitoring Vital Signs: Procedure Monitoring Vital Signs Temperature 102.7 F H 10/07/18 08:37 Pulse Rate 92 H 10/07/18 08:37 Respiratory Rate 18 10/07/18 08:37 Blood Pressure 120/77 10/07/18 08:37 O2 Sat by Pulse Oximetry (%) 90 L 10/07/18 08:37 <Melissa Nixon - Last Filed: 10/07/18 09:50> - Procedure Monitoring Vital Signs: Procedure Monitoring Vital Signs Temperature 102.7 F H 10/07/18 08:37 Pulse Rate 92 H 10/07/18 08:37 Respiratory Rate 18 10/07/18 08:37 Blood Pressure 120/77 10/07/18 08:37 O2 Sat by Pulse Oximetry (%) 90 L 10/07/18 08:37 <Allan Lazcano - Last Filed: 10/07/18 12:44> Heart Score/ECG Review - ECG Intrepretation Comment:: 10/07/18 09:51 EKG was read by Dr. Lazcano at 0927 Impression: Normal sinus rhythm Vent Rate 77bpm OK INterval: 124 ms QTc: 407ms <Melissa Nixon - Last Filed: 10/07/18 09:50> ED Treatment Course - LABORATORY CBC & Chemistry Diagram: 10/07/18 09:20 10/07/18 09:20 <Melissa Nixon - Last Filed: 10/07/18 09:50> - LABORATORY CBC & Chemistry Diagram: 10/07/18 09:20 10/07/18 09:20 <Allan Lazcano - Last Filed: 10/07/18 12:44> *DC/Admit/Observation/Transfer - Attestations Scribe Attestion: 10/07/18 09:53 Documentation prepared by Melissa Nixon, acting as medical receptionist biller for Allan Lazcano MD <Melissa Nixon - Last Filed: 10/07/18 09:50> - Discharge Dispostion Decision to Admit order: Yes - Attestations Physician Attestion: 10/07/18 10:36 The documentation was prepared by the scribe under my direct supervision. I have reviewed the documentation which correctly represents the findings, medical decision-making and critical action taken by me. <Allan Lazcano - Last Filed: 10/07/18 12:44> Diagnosis at time of Disposition: Thrush, oral, HIV disease Pneumonia Qualifiers: Pneumonia type: due to unspecified organism Laterality: bilateral Lung location : lower lobe of lung Qualified Code(s): J18.1 - Lobar pneumonia, unspecified organism - Discharge Dispostion Condition at time of disposition: Fair - Referrals Referrals: ON STAFF,NOT [Primary Care Provider] -
[2018-10-07] MEDS ORDERED: SODIUM CHLORIDE 1,000 ML IV STA (09:07)
[2018-10-07 09:34] LABS: VENOUS PC02 39.4 mmHg (38-52); VENOUS PH 7.44 (7.32-7.42); VENOUS PO2 49.5 mmHg (28-48)
[2018-10-07 09:38] LABS: BASO % 0.1 % (0-2.0); EOS % 0.2 % (0-4.5); HEMATOCRIT 25.3 % (32.4-45.2); HEMOGLOBIN 8.8 GM/dL (10.7-15.3); LYMPH % 15.2 % (8-40); MCH 29.7 pg (25.7-33.7); MCHC 34.7 g/dl (32.0-36.0); MEAN CELL VOLUME 85.7 fl (80-96); MEAN PLT VOLUME 8.7 fl (7.5-11.1); MONO % 7.2 % (3.8-10.2); NEUT % 77.3 % (42.8-82.8); PLATELET COUNT 223 K/MM3 (134-434); RBC 2.95 M/mm3 (3.60-5.2); WHITE BLOOD COUNT 10.9 K/mm3 (4.0-10.0)
[2018-10-07] MEDS ORDERED: NYSTATIN 500,000 UNITS/5 ML SUSPENSION PO ONE (09:58)
[2018-10-07 10:00] LABS: INR 1.11 (0.83-1.09); PROTHROMBIN TIME (PATIENT) 13.1 SEC (9.7-13.0)
[2018-10-07] MEDS ORDERED: ACETAMINOPHEN 325 MG TABLET (FP) PO ONE (10:03)
[2018-10-07 10:04] LABS: ACTIVATED PTT 29.7 SECONDS (25.2-36.5)
[2018-10-07] MEDS ORDERED: ACETAMINOPHEN 325 MG TABLET (FP) ONE (10:05)
[2018-10-07] MEDS ORDERED: CEFTRIAXONE 1,000 MG in DEXTROSE 5%-WATER - 50 ML IVPB ONE (10:11)
[2018-10-07] MEDS ORDERED: AZITHROMYCIN IVPB 500 MG in DEXTROSE 5%-WATER - 250 ML IVPB ONE (10:11)
[2018-10-07] MEDS ORDERED: ALBUTEROL SO4 2.5/IPRATROPIUM 0.5 INH SOL 3 ML VIAL.NEB. NEB ONE ×2 (10:12→14:49)
[2018-10-07] MEDS ORDERED: CEFTRIAXONE 1 GM/50 ML BAG ONE (10:18)
[2018-10-07] MEDS ORDERED: AZITHROMYCIN IVPB 500 MG/250 ML BAG IVPB ONE (10:18)
[2018-10-07 10:40] LABS: ALBUMIN 2.7 g/dl (3.4-5.0); ALK PHOS 86 U/L (45-117); ANION GAP 7 MMOL/L (8-16); BILIRUBIN,TOTAL 0.3 mg/dL (0.2-1); BLOOD UREA NITROGEN 19 mg/dL (7-18); CALCIUM 8.4 mg/dL (8.5-10.1); CHLORIDE 105 mmol/L (98-107); CO2 28 mmol/L (21-32); GLUCOSE,RANDOM 115 mg/dL (74-106); POTASSIUM 4.7 mmol/L (3.5-5.1); SGOT/AST 38 U/L (15-37); SGPT/ALT 24 U/L (13-61); SODIUM 140 mmol/L (136-145); TOT PROT 7.7 g/dl (6.4-8.2)
--- NOTE | 2018-10-07 11:38 | EKG ---
Test Reason : Blood Pressure : / mmHG Vent. Rate : 077 BPM Atrial Rate : 077 BPM P-R Int : 124 ms QRS Dur : 072 ms QT Int : 360 ms P-R-T Axes : 056 012 043 degrees QTc Int : 407 ms NORMAL SINUS RHYTHM MINIMAL VOLTAGE CRITERIA FOR LVH, MAY BE NORMAL VARIANT BORDERLINE ECG NO PREVIOUS ECGS AVAILABLE Confirmed by TIM BAILEY MD ([id number]) on 10/07/2018 11:37:32 AM Referred By: Confirmed By:TIM BAILEY MD
[2018-10-07] MEDS ORDERED: risperiDONE 0.5 MG TABLET (FP) PO ONE (12:15)
--- NOTE | 2018-10-07 15:01 | CON.ID ---
Consult - Alcohol/Substance Use Hx Alcohol Use: Yes - Smoking History Smoking history: Current every day smoker Have you smoked in the past 12 months: Yes Aproximately how many cigarettes per day: 20 Home Medications - Allergies Allergies/Adverse Reactions: Allergies Allergy/AdvReac Type Severity Reaction Status Date / Time shellfish derived Allergy Severe Difficulty Verified 10/07/18 08:37 Breathing - Home Medications Home Medications: Ambulatory Orders Elviteg/Cob/Emtri/Tenof Alafen [Genvoya Tablet] 1 each PO DAILY 10/01/18 Gabapentin 800 mg PO TID 10/01/18 Olanzapine [Zyprexa] 20 mg PO HS 10/01/18 Sertraline HCl [Zoloft] 200 mg PO HS 10/01/18 Family Disease History - Family Disease History Family Disease History: Diabetes: Father, Respiratory: Mother (tobacco use) Physical Exam Vital Signs: Vital Signs Temperature 98.7 F 10/07/18 12:07 Pulse Rate 61 10/07/18 12:07 Respiratory Rate 16 10/07/18 12:07 Blood Pressure 100/53 L 10/07/18 12:07 O2 Sat by Pulse Oximetry (%) 97 10/07/18 12:07 Labs: CBC, BMP 10/07/18 09:20 10/07/18 09:20
[2018-10-07] MEDS: PIPERACILLIN/TAZOB 3.375 GM 3.375 GM in DEXTROSE 5%-WATER - 50 ML IVPB SCH ×2 (16:40→18:44)
[2018-10-07] MEDS: VANCOMYCIN 1,250 MG in DEXTROSE 5%-WATER - 250 ML IVPB SCH (17:40)
--- NOTE | 2018-10-07 19:14 | HP ---
Admitting History and Physical - Primary Care Physician PCP: Rubio Matta - Admission History of Present Illness: The patient is a 58 year old female, with a significant past medical history of HIV (CD4 low, viral load detectable), Hepatitis C, IVDU (heroin and cocaine) who presents to the emergency department with dyspnea and fevers for a few days sent from [facility]. no chest pain - Past Medical History Infectious Disease: Yes: HIV, Other (hep c) - Smoking History Smoking history: Current every day smoker Have you smoked in the past 12 months: Yes Aproximately how many cigarettes per day: 20 - Alcohol/Substance Use Hx Alcohol Use: Yes Home Medications - Allergies Allergies/Adverse Reactions: Allergies Allergy/AdvReac Type Severity Reaction Status Date / Time shellfish derived Allergy Severe Difficulty Verified 10/07/18 08:37 Breathing - Home Medications Home Medications: Ambulatory Orders Elviteg/Cob/Emtri/Tenof Alafen [Genvoya Tablet] 1 each PO DAILY 10/01/18 Gabapentin 800 mg PO TID 10/01/18 Olanzapine [Zyprexa] 20 mg PO HS 10/01/18 Sertraline HCl [Zoloft] 200 mg PO HS 10/01/18 Methadone (Detox) [Dolophine -] 50 mg PO DAILY 10/08/18 Family Disease History - Family Disease History Family Disease History: Diabetes: Father, Respiratory: Mother (tobacco use) Physical Examination Vital Signs: Vital Signs Temperature 98.9 F 10/07/18 17:41 Pulse Rate 66 10/07/18 17:41 Respiratory Rate 19 10/07/18 17:41 Blood Pressure 92/55 L 10/07/18 17:41 O2 Sat by Pulse Oximetry (%) 97 10/07/18 12:07 Constitutional: Yes: Calm HENT: Yes: Atraumatic Neck: Yes: Supple Cardiovascular: Yes: Regular Rate and Rhythm Respiratory: Yes: Rhonchi Gastrointestinal: Yes: Normal Bowel Sounds Extremities: Yes: WNL Edema: No Neurological: Yes: Alert, Oriented Labs: CBC, BMP 10/07/18 09:20 10/07/18 09:20 Imaging - Results X-ray: Report Reviewed Cat Scan: Report Reviewed Problem List - Problems (1) HIV disease Assessment/Plan: continue home meds Code(s): B20 - HUMAN IMMUNODEFICIENCY VIRUS [HIV] DISEASE (2) Pneumonia Assessment/Plan: on iv abx id consult Code(s): J18.9 - PNEUMONIA, UNSPECIFIED ORGANISM Qualifiers: Pneumonia type: due to unspecified organism Laterality: bilateral Lung location: lower lobe of lung Qualified Code(s): J18.1 - Lobar pneumonia, unspecified organism (3) Thrush, oral Assessment/Plan: nystatin swish and swallow Code(s): B37.0 - CANDIDAL STOMATITIS (4) Hep C w/o coma, chronic Code(s): B18.2 - CHRONIC VIRAL HEPATITIS C Assessment/Plan Laboratory Tests 10/07/18 10/07/18 10/07/18 09:06 09:20 09:20 WBC 10.9 H RBC 2.95 L Hgb 8.8 L Hct 25.3 L MCV 85.7 MCH 29.7 MCHC 34.7 RDW 18.0 H Plt Count 223 D MPV 8.7 Absolute Neuts (auto) 8.4 H Neutrophils % 77.3 Lymphocytes % 15.2 Monocytes % 7.2 Eosinophils % 0.2 Basophils % 0.1 Nucleated RBC % 0 PT with INR 13.10 H INR 1.11 H PTT (Actin FS) 29.7 VBG pH 7.44 H POC VBG pCO2 39.4 POC VBG pO2 49.5 H Mixed VBG HCO3 26.0 H Sodium Potassium Chloride Carbon Dioxide Anion Gap BUN Creatinine Creat Clearance w eGFR Random Glucose Lactic Acid Calcium Total Bilirubin AST ALT Alkaline Phosphatase LD Total Troponin I Total Protein Albumin Influenza A (Rapid) Influenza B (Rapid) 10/07/18 10/07/18 10/07/18 09:20 09:20 09:20 WBC RBC Hgb Hct MCV MCH MCHC RDW Plt Count MPV Absolute Neuts (auto) Neutrophils % Lymphocytes % Monocytes % Eosinophils % Basophils % Nucleated RBC % PT with INR INR PTT (Actin FS) VBG pH POC VBG pCO2 POC VBG pO2 Mixed VBG HCO3 Sodium 140 Potassium 4.7 Chloride 105 Carbon Dioxide 28 Anion Gap 7 L BUN 19 H Creatinine 1.0 Creat Clearance w eGFR 57.15 Random Glucose 115 H Lactic Acid 1.7 Calcium 8.4 L Total Bilirubin 0.3 AST 38 H ALT 24 Alkaline Phosphatase 86 LD Total Troponin I < 0.02 Total Protein 7.7 Albumin 2.7 L Influenza A (Rapid) Negative Influenza B (Rapid) Negative 10/07/18 10/07/18 09:58 15:10 WBC RBC Hgb Hct MCV MCH MCHC RDW Plt Count MPV Absolute Neuts (auto) Neutrophils % Lymphocytes % Monocytes % Eosinophils % Basophils % Nucleated RBC % PT with INR INR PTT (Actin FS) VBG pH POC VBG pCO2 POC VBG pO2 Mixed VBG HCO3 Sodium Potassium Chloride Carbon Dioxide Anion Gap BUN Creatinine Creat Clearance w eGFR Random Glucose Lactic Acid 1.8 Calcium Total Bilirubin AST ALT Alkaline Phosphatase LD Total 279 H Troponin I Total Protein Albumin Influenza A (Rapid) Influenza B (Rapid) Active Medications Generic Name Dose Route Start Last Admin Trade Name Freq PRN Reason Stop Dose Admin Vancomycin HCl 1,250 mg/ 250 mls @ 166.667 mls/hr 10/07/18 15:15 10/07/18 17: 40 Dextrose IVPB 166.667 mls/hr Q24H MIRACLE Administration Protocol Piperacillin Sod/Tazobactam 50 mls @ 100 mls/hr 10/07/18 15:15 10/07/18 18:44 Sod 3.375 gm/ Dextrose IVPB Not Given Q8H-IV MIRACLE Protocol Active Medications Generic Name Dose Route Start Last Admin Trade Name Freq PRN Reason Stop Dose Admin Acetaminophen 650 mg 10/07/18 19:17 Tylenol - PO Q6H PRN FEVER Albuterol Sulfate 1 amp 10/08/18 11:36 Ventolin 0.083% Nebulizer Soln - NEB Q4H PRN SHORT OF BREATH/WHEEZING Albuterol/Ipratropium 1 amp 10/08/18 14:00 10/09/18 13:49 Duoneb - NEB 1 amp RTID MIRACLE Administration Elvitegravir/Cobicis/Emtricit/Tenof 1 tab 10/09/18 11:20 10/09/18 13:22 Genvoya (Non-Formulary) PO 1 tab DAILY@0800 MIRACLE Administration Gabapentin 800 mg 10/07/18 22:00 10/09/18 13:21 Neurontin - PO 800 mg TID MIRACLE Administration Heparin Sodium (Porcine) 5,000 unit 10/07/18 22:00 10/09/18 10:28 Heparin - SQ 5,000 unit BID M[facility]ACLE Administration Vancomycin HCl 1,250 mg/ 250 mls @ 166.667 mls/hr 10/07/18 15:15 10/09/18 15: 41 Dextrose IVPB 166.667 mls/hr Q24H M[facility]LE Administration Protocol Piperacillin Sod/Tazobactam 50 mls @ 100 mls/hr 10/07/18 15:15 10/09/18 17:28 Sod 3.375 gm/ Dextrose IVPB 100 mls/hr Q8H-IV M[facility]ACLE Administration Protocol Methadone HCl 40 mg/ Methadone 50 mg 10/08/18 17:00 10/09/18 10:26 HCl 10 mg PO 50 mg DAILY M[facility]ACLE Administration Methylprednisolone Sodium Succinate 40 mg 10/08/18 11:45 10/09/18 10:28 Solu-Medrol - IVPUSH 40 mg DAILY M[facility]ACLE Administration Olanzapine 20 mg 10/07/18 22:00 10/08/18 21:08 Zyprexa - PO 20 mg HS MIRACLE Administration Sertraline HCl 200 mg 10/07/18 22:00 10/08/18 21:09 Zoloft - PO 200 mg HS MIRACLE Administration
[2018-10-07] MEDS ORDERED: ALBUTEROL SO4 2.5/IPRATROPIUM 0.5 INH SOL 3 ML VIAL.NEB. NEB PRN (19:17)
[2018-10-07] MEDS ORDERED: ACETAMINOPHEN 325 MG TABLET (FP) PO PRN (19:17)
[2018-10-07 20:08] VITALS: BMI 21.2
[2018-10-07] MEDS ORDERED: PT OWN MED DRAWER 7, Y5N ONE (21:57)
[2018-10-07] MEDS: OLANZapine 10 MG TABLET PO SCH (22:12)
[2018-10-07] MEDS: HEPARIN NA (PORCINE) 5,000 UNITS/ML 1ML VIAL SQ SCH (22:12)
[2018-10-07] MEDS: SERTRALINE HCL 50 MG TABLET (FP) PO SCH (22:13)
[2018-10-07] MEDS: GABAPENTIN 400 MG CAPSULE (FP) PO SCH (22:13)
[2018-10-07 23:05] LABS: URINE APPEARANCE CLEAR; URINE BILIRUBIN NEGATIVE (<2.0 mg/dL); URINE COLOR LTYELLOW; URINE GLUCOSE (UA) NEGATIVE (NEGATIVE); URINE KETONE NEGATIVE (NEGATIVE); URINE LEUK ESTERASE TRACE (NEGATIVE); URINE NITRITE NEGATIVE (NEGATIVE); URINE PROTEIN NEGATIVE (NEGATIVE); URINE UROBILINOGEN NEGATIVE mg/dL (0.2-1.0)
[2018-10-07 23:15] LABS: EPI CELLS RARE /HPF (FEW); URINE MUCUS RARE
[2018-10-07 23:18] LABS: COCAINE, UR NEGATIVE ng/ml (CUTOFF=300); OPIATES, URI NEGATIVE ng/ml (CUTOFF=300); PHENCYCLIDINE,URINE NEGATIVE ng/ml (CUTOFF=25); URINE AMPHETAMINES NEGATIVE ng/ml (CUTOFF=500); URINE BARBITURATES NEGATIVE ng/ml (CUTOFF=200)
[2018-10-07 23:20] LABS: METHADONE, UR POSITIVE ng/ml (CUTOFF=300); URINE BENZODIAZEPINES POSITIVE ng/ml (CUTOFF=200)
[2018-10-08] MEDS ORDERED: PIPERACILLIN/TAZOBACTAM 3.375 GM VIAL IVPB ONE ×3 (01:21→17:04)
[2018-10-08] MEDS ORDERED: DEXTROSE 5%-WATER - 50 ML IVPB ONE ×3 (01:21→17:04)
[2018-10-08] MEDS: PIPERACILLIN/TAZOB 3.375 GM 3.375 GM in DEXTROSE 5%-WATER - 50 ML IVPB SCH ×3 (01:28→17:10)
[2018-10-08] MEDS: GABAPENTIN 400 MG CAPSULE (FP) PO SCH ×3 (06:59→21:09)
[2018-10-08] MEDS: HEPARIN NA (PORCINE) 5,000 UNITS/ML 1ML VIAL SQ SCH ×2 (10:16→21:08)
--- NOTE | 2018-10-08 11:30 | CON.PULM ---
Consult Consult Specialty:: PULM/CCM Referred by:: NANCY Reason for Consultation:: SOB - History of Present Illness Chief Complaint: SOB History of Present Illness: 58 F, smoker, COPD, HIV (CD4/VL unclear), Hepatitis C, and illicit substance abuse (heroin and cocaine). Admitted via the ER due to progressive dyspnea, congested cough, and fever. She was admitted at [facility] for detox. No travel history or sick contacts. No chest pain. Denies hemoptysis. CT: Bilateral infiltrates in the mid lung and lower lung zones / atelectasis and bronchiectasis - History Source History Provided By: Patient Limitations to Obtaining History: Poor Historian - Past Medical History Pulmonary: Yes: COPD, O2 Dependent. No: Pneumonia, Pulmonary Embolus, Pulmonary Fibrosis, Sleep Apnea Infectious Disease: Yes: HIV, Other (hep c) - Alcohol/Substance Use Hx Alcohol Use: Yes - Smoking History Smoking history: Current every day smoker Have you smoked in the past 12 months: Yes Aproximately how many cigarettes per day: 20 Home Medications - Allergies Allergies/Adverse Reactions: Allergies Allergy/AdvReac Type Severity Reaction Status Date / Time shellfish derived Allergy Severe Difficulty Verified 10/07/18 08:37 Breathing - Home Medications Home Medications: Ambulatory Orders Elviteg/Cob/Emtri/Tenof Alafen [Genvoya Tablet] 1 each PO DAILY 10/01/18 Gabapentin 800 mg PO TID 10/01/18 Olanzapine [Zyprexa] 20 mg PO HS 10/01/18 Sertraline HCl [Zoloft] 200 mg PO HS 10/01/18 Family Disease History - Family Disease History Family Disease History: Diabetes: Father, Respiratory: Mother (tobacco use) Review of Systems - Review of Systems Constitutional: reports: Chills, Fever, Malaise. denies: Night Sweats, Unintentional Wgt. Loss Eyes: reports: No Symptoms, Recent Change in Vision Neck: reports: No Symptoms Cardiovascular: reports: Shortness of Breath. denies: Chest Pain, Edema, Palpitations Respiratory: reports: Cough, SOB, SOB on Exertion. denies: Hemoptysis, Snoring , Wheezing Gastrointestinal: reports: No Symptoms Genitourinary: reports: No Symptoms Breasts: reports: No Symptoms Reported Musculoskeletal: reports: No Symptoms Integumentary: reports: No Symptoms Neurological: reports: No Symptoms Endocrine: reports: No Symptoms Hematology/Lymphatic: reports: No Symptoms Psychiatric: reports: No Symptoms Physical Exam Vital Sings: Vital Signs Temperature 98.7 F 10/08/18 06:00 Pulse Rate 69 10/08/18 06:00 Respiratory Rate 20 10/08/18 06:00 Blood Pressure 114/76 10/08/18 06:00 O2 Sat by Pulse Oximetry (%) 96 10/07/18 20:21 Constitutional: Yes: No Distress, Anxious, Thin Eyes: Yes: Conjunctiva Clear, EOM Intact HENT: Yes: Atraumatic, Normocephalic Neck: Yes: Supple, Trachea Midline Cardiovascular: Yes: Regular Rate and Rhythm Respiratory: Yes: Cough, Diminished, Rhonchi, SOB, SOB on Exertion. No: Accessory Muscle Use, Stridor, Tachypnea, Wheezes ...Inspection: Yes: WNL ...Clubbing: No Gastrointestinal: Yes: Normal Bowel Sounds, Soft Renal/: Yes: WNL Musculoskeletal: Yes: WNL Extremities: Yes: WNL Edema: No Peripheral Pulses WNL: Yes Integumentary: Yes: WNL Neurological: Yes: Alert, Oriented ...Motor Strength: WNL Psychiatric: Yes: Alert, Oriented Labs: CBC, BMP 10/07/18 09:20 Imaging - Results Chest X-ray: Report Reviewed, Image Reviewed Cat Scan: Report Reviewed, Image Reviewed Problem List - Problems (1) HIV disease Code(s): B20 - HUMAN IMMUNODEFICIENCY VIRUS [HIV] DISEASE (2) Pneumonia Code(s): J18.9 - PNEUMONIA, UNSPECIFIED ORGANISM Qualifiers: Pneumonia type: due to unspecified organism Laterality: bilateral Lung location: lower lobe of lung Qualified Code(s): J18.1 - Lobar pneumonia, unspecified organism (3) Hep C w/o coma, chronic Code(s): B18.2 - CHRONIC VIRAL HEPATITIS C (4) Polyneuropathy Code(s): G62.9 - POLYNEUROPATHY, UNSPECIFIED (5) Asthma Code(s): J45.909 - UNSPECIFIED ASTHMA, UNCOMPLICATED Qualifiers: Asthma complication type: unspecified (6) Cocaine dependence Code(s): F14.20 - COCAINE DEPENDENCE, UNCOMPLICATED Qualifiers: Substance use status: uncomplicated Qualified Code(s): F14.20 - Cocaine dependence, uncomplicated (7) Degenerative disk disease Code(s): [id number] - (8) HIV positive Code(s): Z21 - ASYMPTOMATIC HUMAN IMMUNODEFICIENCY VIRUS INFECTION STATUS (9) Marijuana dependence Code(s): F12.20 - CANNABIS DEPENDENCE, UNCOMPLICATED (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 Code(s): F11.20 - OPIOID DEPENDENCE, UNCOMPLICATED (11) Opioid dependence Code(s): F11.20 - OPIOID DEPENDENCE, UNCOMPLICATED (12) Schizophrenia Code(s): F20.9 - SCHIZOPHRENIA, UNSPECIFIED Qualifiers: Schizophrenia type: unspecified Qualified Code(s): F20.9 - Schizophrenia, unspecified (13) Tobacco use disorder Code(s): F17.200 - NICOTINE DEPENDENCE, UNSPECIFIED, UNCOMPLICATED Assessment/Plan ABX per ID Need to clarify HIV status O2 as needed Daily Medrol for Severe CAP BD TX Check sputum Check urinary antigen No smoking Will need continued substance detox/rehab Should have repeat imaging in 6 weeks to document resolution of CT findings Thank you. Dr Barron
[2018-10-08] MEDS ORDERED: ALBUTEROL SO4 0.083% IH SOL 2.5 MG/3 ML VIAL.NEB. NEB PRN (11:36)
[2018-10-08] MEDS: methylPREDNISolone NA SUCC 40 MG/1 ML VIAL IVPUSH SCH (12:10)
[2018-10-08] MEDS: ALBUTEROL SO4 2.5/IPRATROPIUM 0.5 INH SOL 3 ML VIAL.NEB. NEB SCH ×2 (14:38→20:33)
[2018-10-08] MEDS ORDERED: PT OWN MED DRAWER 7, Y5N ONE ×2 (15:33→20:39)
[2018-10-08] MEDS: VANCOMYCIN 1,250 MG in DEXTROSE 5%-WATER - 250 ML IVPB SCH (15:37)
--- NOTE | 2018-10-08 15:41 | PN ---
Progress Note, Physician History of Present Illness: patient says she feels much better looks comfortable patient takes it seems genvoia for hiv meds one tab daily - Current Medication List Current Medications: Active Medications Acetaminophen (Tylenol -) 650 mg PO Q6H PRN PRN Reason: FEVER Albuterol Sulfate (Ventolin 0.083% Nebulizer Soln -) 1 amp NEB Q4H PRN PRN Reason: SHORT OF BREATH/WHEEZING Albuterol/Ipratropium (Duoneb -) 1 amp NEB RTID MIRACLE Last Admin: 10/08/18 14:38 Dose: 1 amp Gabapentin (Neurontin -) 800 mg PO TID M[facility]LE Last Admin: 10/08/18 14:55 Dose: 800 mg Heparin Sodium (Porcine) (Heparin -) 5,000 unit SQ BID M[facility]ACLE Last Admin: 10/08/18 10:16 Dose: 5,000 unit Vancomycin HCl 1,250 mg/ (Dextrose) 250 mls @ 166.667 mls/hr IVPB Q24H M[facility]ACLE; Protocol Last Admin: 10/07/18 17:40 Dose: 166.667 mls/hr Piperacillin Sod/Tazobactam (Sod 3.375 gm/ Dextrose) 50 mls @ 100 mls/hr IVPB Q8H-IV M[facility]LE; Protocol Last Admin: 10/08/18 10:15 Dose: 100 mls/hr Methylprednisolone Sodium Succinate (Solu-Medrol -) [address] [facility] Last Admin: 10/08/18 12:10 Dose: 40 mg Non-Formulary Medication (Elviteg/Cob/Emtri/Tenof Alafen [Genvoya Tablet]) [address] [facility] Olanzapine (Zyprexa -) 20 mg PO HS M[facility]LE Last Admin: 10/07/18 22:12 Dose: 20 mg Sertraline HCl (Zoloft -) 200 mg PO HS M[facility]LE Last Admin: 10/07/18 22:13 Dose: 200 mg - Objective Vital Signs: Vital Signs Temperature 99.1 F 10/08/18 10:00 Pulse Rate 91 H 10/08/18 10:00 Respiratory Rate 20 10/08/18 10:00 Blood Pressure 124/64 10/08/18 10:00 O2 Sat by Pulse Oximetry (%) 95 10/08/18 09:00 Constitutional: Yes: No Distress, Calm Cardiovascular: Yes: Regular Rate and Rhythm Respiratory: Yes: Regular, Poor Air Entry, Other Gastrointestinal: Yes: Normal Bowel Sounds, Soft Musculoskeletal: Yes: WNL Extremities: Yes: WNL Neurological: Yes: Alert, Oriented Psychiatric: Yes: Alert, Oriented Labs: CBC, BMP 10/07/18 09:20 INR, PTT INR 1.11 (0.83-1.09) H 10/07/18 09:20 Assessment/Plan Problem List - Problems (1) HIV disease Code(s): B20 - HUMAN IMMUNODEFICIENCY VIRUS [HIV] DISEASE (2) Pneumonia Code(s): J18.9 - PNEUMONIA, UNSPECIFIED ORGANISM Qualifiers: Pneumonia type: due to unspecified organism Laterality: bilateral Lung location: lower lobe of lung Qualified Code(s): J18.1 - Lobar pneumonia, unspecified organism (3) Hep C w/o coma, chronic Code(s): B18.2 - CHRONIC VIRAL HEPATITIS C (4) Polyneuropathy Code(s): G62.9 - POLYNEUROPATHY, UNSPECIFIED (5) Asthma Code(s): J45.909 - UNSPECIFIED ASTHMA, UNCOMPLICATED Qualifiers: Asthma complication type: unspecified (6) Cocaine dependence Code(s): F14.20 - COCAINE DEPENDENCE, UNCOMPLICATED Qualifiers: Substance use status: uncomplicated Qualified Code(s): F14.20 - Cocaine dependence, uncomplicated (7) Degenerative disk disease Code(s): [id number] - (8) HIV positive Code(s): Z21 - ASYMPTOMATIC HUMAN IMMUNODEFICIENCY VIRUS INFECTION STATUS (9) Marijuana dependence Code(s): F12.20 - CANNABIS DEPENDENCE, UNCOMPLICATED (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
--- NOTE | 2018-10-08 16:40 | PN ---
Progress Note, Physician - Current Medication List Current Medications: Active Medications Acetaminophen (Tylenol -) 650 mg PO Q6H PRN PRN Reason: FEVER Albuterol Sulfate (Ventolin 0.083% Nebulizer Soln -) 1 amp NEB Q4H PRN PRN Reason: SHORT OF BREATH/WHEEZING Albuterol/Ipratropium (Duoneb -) 1 amp NEB RTID [facility] Last Admin: 10/08/18 14:38 Dose: 1 amp Gabapentin (Neurontin -) 800 mg PO TID [facility] Last Admin: 10/08/18 14:55 Dose: 800 mg Heparin Sodium (Porcine) (Heparin -) 5,000 unit SQ BID [facility] Last Admin: 10/08/18 10:16 Dose: 5,000 unit Vancomycin HCl 1,250 mg/ (Dextrose) 250 mls @ 166.667 mls/hr IVPB Q24H [facility]; Protocol Last Admin: 10/08/18 15:37 Dose: 166.667 mls/hr Piperacillin Sod/Tazobactam (Sod 3.375 gm/ Dextrose) 50 mls @ 100 mls/hr IVPB Q8H-IV [facility]; Protocol Last Admin: 10/08/18 10:15 Dose: 100 mls/hr Methadone HCl (Dolophine -) 50 mg PO DAILY [facility] Methylprednisolone Sodium Succinate (Solu-Medrol -) 40 mg IVPUSH DAILY [facility] Last Admin: 10/08/18 12:10 Dose: 40 mg Non-Formulary Medication (Elviteg/Cob/Emtri/Tenof Alafen [Genvoya Tablet]) 1 each PO DAILY [facility] Olanzapine (Zyprexa -) 20 mg PO HS [facility] Last Admin: 10/07/18 22:12 Dose: 20 mg Sertraline HCl (Zoloft -) 200 mg PO HS [facility] Last Admin: 10/07/18 22:13 Dose: 200 mg - Objective Vital Signs: Vital Signs Temperature 99.1 F 10/08/18 10:00 Pulse Rate 91 H 10/08/18 10:00 Respiratory Rate 20 10/08/18 10:00 Blood Pressure 124/64 10/08/18 10:00 O2 Sat by Pulse Oximetry (%) 95 10/08/18 09:00 Constitutional: Yes: No Distress HENT: Yes: Atraumatic Neck: Yes: Supple Cardiovascular: Yes: Regular Rate and Rhythm Respiratory: Yes: CTA Bilaterally Gastrointestinal: Yes: Normal Bowel Sounds Extremities: Yes: WNL Edema: No Peripheral Pulses WNL: Yes Neurological: Yes: Alert, Oriented Labs: CBC, BMP 10/07/18 09:20 INR, PTT INR 1.11 (0.83-1.09) H 10/07/18 09:20 Problem List - Problems (1) HIV disease Assessment/Plan: continue home meds Code(s): B20 - HUMAN IMMUNODEFICIENCY VIRUS [HIV] DISEASE (2) Pneumonia Assessment/Plan: on iv abx id consult Code(s): J18.9 - PNEUMONIA, UNSPECIFIED ORGANISM Qualifiers: Pneumonia type: due to unspecified organism Laterality: bilateral Lung location: lower lobe of lung Qualified Code(s): J18.1 - Lobar pneumonia, unspecified organism (3) Thrush, oral Assessment/Plan: nystatin swish and swallow Code(s): B37.0 - CANDIDAL STOMATITIS (4) Hep C w/o coma, chronic Code(s): B18.2 - CHRONIC VIRAL HEPATITIS C
[2018-10-08] MEDS ORDERED: METHADONE HCL 10 MG TABLET (FOR DETOX USE ONLY) PO SCH (16:45)
[2018-10-08] MEDS ORDERED: METHADONE HCL 10 MG TABLET ONE (17:04)
[2018-10-08] MEDS ORDERED: METHADONE HCL 40 MG DISPERSABLE TABLET ONE (17:04)
[2018-10-08] MEDS: METHADONE 40 MG, METHADONE 10 MG PO SCH (17:09)
[2018-10-08] MEDS: OLANZapine 10 MG TABLET PO SCH (21:08)
[2018-10-08] MEDS: SERTRALINE HCL 50 MG TABLET (FP) PO SCH (21:09)
[2018-10-09] MEDS ORDERED: DEXTROSE 5%-WATER - 50 ML IVPB ONE ×3 (00:15→17:13)
[2018-10-09] MEDS ORDERED: PIPERACILLIN/TAZOBACTAM 3.375 GM VIAL IVPB ONE ×3 (00:15→17:13)
[2018-10-09] MEDS: PIPERACILLIN/TAZOB 3.375 GM 3.375 GM in DEXTROSE 5%-WATER - 50 ML IVPB SCH ×3 (01:08→17:28)
[2018-10-09] MEDS: GABAPENTIN 400 MG CAPSULE (FP) PO SCH ×3 (06:02→21:10)
[2018-10-09] MEDS: ALBUTEROL SO4 2.5/IPRATROPIUM 0.5 INH SOL 3 ML VIAL.NEB. NEB SCH ×3 (07:30→20:26)
[2018-10-09] MEDS ORDERED: METHADONE HCL 10 MG TABLET ONE (10:22)
[2018-10-09] MEDS ORDERED: METHADONE HCL 40 MG DISPERSABLE TABLET ONE (10:22)
[2018-10-09] MEDS: METHADONE 40 MG, METHADONE 10 MG PO SCH (10:26)
[2018-10-09] MEDS: methylPREDNISolone NA SUCC 40 MG/1 ML VIAL IVPUSH SCH (10:28)
[2018-10-09] MEDS: HEPARIN NA (PORCINE) 5,000 UNITS/ML 1ML VIAL SQ SCH ×2 (10:28→21:11)
[2018-10-09] MEDS ORDERED: PT OWN MED DRAWER 7, Y5N ONE ×4 (10:44→20:42)
--- NOTE | 2018-10-09 11:52 | PN ---
Progress Note, Physician History of Present Illness: stable - Current Medication List Current Medications: Active Medications Acetaminophen (Tylenol -) 650 mg PO Q6H PRN PRN Reason: FEVER Albuterol Sulfate (Ventolin 0.083% Nebulizer Soln -) 1 amp NEB Q4H PRN PRN Reason: SHORT OF BREATH/WHEEZING Albuterol/Ipratropium (Duoneb -) 1 amp NEB RTID [facility] Last Admin: 10/09/18 07:30 Dose: 1 amp Elvitegravir/Cobicis/Emtricit/Tenof (Genvoya (Non-Formulary)) 1 tab PO DAILY@ 0800 [facility] Gabapentin (Neurontin -) 800 mg PO TID [facility] Last Admin: 10/09/18 06:02 Dose: 800 mg Heparin Sodium (Porcine) (Heparin -) 5,000 unit SQ BID [facility] Last Admin: 10/09/18 10:28 Dose: 5,000 unit Vancomycin HCl 1,250 mg/ (Dextrose) 250 mls @ 166.667 mls/hr IVPB Q24H [facility]; Protocol Last Admin: 10/08/18 15:37 Dose: 166.667 mls/hr Piperacillin Sod/Tazobactam (Sod 3.375 gm/ Dextrose) 50 mls @ 100 mls/hr IVPB Q8H-IV [facility]; Protocol Last Admin: 10/09/18 10:27 Dose: 100 mls/hr Methadone HCl 40 mg/ Methadone (HCl 10 mg) 50 mg PO DAILY [facility] Last Admin: 10/09/18 10:26 Dose: 50 mg Methylprednisolone Sodium Succinate (Solu-Medrol -) 40 mg IVPUSH DAILY [facility] Last Admin: 10/09/18 10:28 Dose: 40 mg Olanzapine (Zyprexa -) 20 mg PO HS [facility] Last Admin: 10/08/18 21:08 Dose: 20 mg Sertraline HCl (Zoloft -) 200 mg PO HS [facility] Last Admin: 10/08/18 21:09 Dose: 200 mg - Objective Vital Signs: Vital Signs Temperature 98.8 F 10/09/18 09:03 Pulse Rate 90 10/09/18 09:03 Respiratory Rate 20 10/09/18 09:03 Blood Pressure 139/66 10/09/18 09:03 O2 Sat by Pulse Oximetry (%) 96 10/08/18 20:21 Constitutional: Yes: No Distress HENT: Yes: Atraumatic Neck: Yes: Supple Cardiovascular: Yes: Regular Rate and Rhythm Respiratory: Yes: CTA Bilaterally Gastrointestinal: Yes: Normal Bowel Sounds Extremities: Yes: WNL Neurological: Yes: Alert, Oriented Labs: CBC, BMP 10/07/18 19:30 10/07/18 09:20 INR, PTT INR 1.11 (0.83-1.09) H 10/07/18 09:20 Problem List - Problems (1) HIV disease Assessment/Plan: continue home meds Code(s): B20 - HUMAN IMMUNODEFICIENCY VIRUS [HIV] DISEASE (2) Pneumonia Assessment/Plan: on iv abx id consult Code(s): J18.9 - PNEUMONIA, UNSPECIFIED ORGANISM Qualifiers: Pneumonia type: due to unspecified organism Laterality: bilateral Lung location: lower lobe of lung Qualified Code(s): J18.1 - Lobar pneumonia, unspecified organism (3) Thrush, oral Assessment/Plan: nystatin swish and swallow Code(s): B37.0 - CANDIDAL STOMATITIS (4) Hep C w/o coma, chronic Code(s): B18.2 - CHRONIC VIRAL HEPATITIS C
--- NOTE | 2018-10-09 13:01 | PN ---
Progress Note, Physician History of Present Illness: pulmonary alert,feeling better,less congested - Current Medication List Current Medications: Active Medications Acetaminophen (Tylenol -) 650 mg PO Q6H PRN PRN Reason: FEVER Albuterol Sulfate (Ventolin 0.083% Nebulizer Soln -) 1 amp NEB Q4H PRN PRN Reason: SHORT OF BREATH/WHEEZING Albuterol/Ipratropium (Duoneb -) 1 amp NEB RTID [facility] Last Admin: 10/09/18 07:30 Dose: 1 amp Elvitegravir/Cobicis/Emtricit/Tenof (Genvoya (Non-Formulary)) 1 tab PO DAILY@ 0800 [facility] Gabapentin (Neurontin -) 800 mg PO TID [facility] Last Admin: 10/09/18 06:02 Dose: 800 mg Heparin Sodium (Porcine) (Heparin -) 5,000 unit SQ BID [facility] Last Admin: 10/09/18 10:28 Dose: 5,000 unit Vancomycin HCl 1,250 mg/ (Dextrose) 250 mls @ 166.667 mls/hr IVPB Q24H [facility]; Protocol Last Admin: 10/08/18 15:37 Dose: 166.667 mls/hr Piperacillin Sod/Tazobactam (Sod 3.375 gm/ Dextrose) 50 mls @ 100 mls/hr IVPB Q8H-IV [facility]; Protocol Last Admin: 10/09/18 10:27 Dose: 100 mls/hr Methadone HCl 40 mg/ Methadone (HCl 10 mg) 50 mg PO DAILY [facility] Last Admin: 10/09/18 10:26 Dose: 50 mg Methylprednisolone Sodium Succinate (Solu-Medrol -) 40 mg IVPUSH DAILY [facility] Last Admin: 10/09/18 10:28 Dose: 40 mg Olanzapine (Zyprexa -) 20 mg PO HS [facility] Last Admin: 10/08/18 21:08 Dose: 20 mg Sertraline HCl (Zoloft -) 200 mg PO HS [facility] Last Admin: 10/08/18 21:09 Dose: 200 mg - Objective Vital Signs: Vital Signs Temperature 98.8 F 10/09/18 09:03 Pulse Rate 90 10/09/18 09:03 Respiratory Rate 20 10/09/18 09:03 Blood Pressure 139/66 10/09/18 09:03 O2 Sat by Pulse Oximetry (%) 96 10/08/18 20:21 Constitutional: Yes: Calm, Thin Eyes: Yes: WNL HENT: Yes: WNL Neck: Yes: WNL Cardiovascular: Yes: Regular Rate and Rhythm, S1, S2 Respiratory: Yes: Rhonchi (scattered archie rhonchi) Gastrointestinal: Yes: Normal Bowel Sounds, Soft Extremities: Yes: WNL Edema: No Labs: CBC, BMP Assessment/Plan Problem List - Problems (1) HIV disease Code(s): B20 - HUMAN IMMUNODEFICIENCY VIRUS [HIV] DISEASE (2) Pneumonia Code(s): J18.9 - PNEUMONIA, UNSPECIFIED ORGANISM Qualifiers: Pneumonia type: due to unspecified organism Laterality: bilateral Lung location: lower lobe of lung Qualified Code(s): J18.1 - Lobar pneumonia, unspecified organism (3) Hep C w/o coma, chronic Code(s): B18.2 - CHRONIC VIRAL HEPATITIS C (4) Polyneuropathy Code(s): G62.9 - POLYNEUROPATHY, UNSPECIFIED (5) Asthma Code(s): J45.909 - UNSPECIFIED ASTHMA, UNCOMPLICATED Qualifiers: Asthma complication type: unspecified (6) Cocaine dependence Code(s): F14.20 - COCAINE DEPENDENCE, UNCOMPLICATED Qualifiers: Substance use status: uncomplicated Qualified Code(s): F14.20 - Cocaine dependence, uncomplicated (7) Degenerative disk disease Code(s): [id number] - (8) HIV positive Code(s): Z21 - ASYMPTOMATIC HUMAN IMMUNODEFICIENCY VIRUS INFECTION STATUS (9) Marijuana dependence Code(s): F12.20 - CANNABIS DEPENDENCE, UNCOMPLICATED (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
[2018-10-09] MEDS: ELVITEG/COB/EMTRI/TENOF (GENVOYA) TABLET (NF) PO SCH (13:22)
--- NOTE | 2018-10-09 13:35 | PN ---
Progress Note, Physician History of Present Illness: stable no new issues feels better - Current Medication List Current Medications: Active Medications Acetaminophen (Tylenol -) 650 mg PO Q6H PRN PRN Reason: FEVER Albuterol Sulfate (Ventolin 0.083% Nebulizer Soln -) 1 amp NEB Q4H PRN PRN Reason: SHORT OF BREATH/WHEEZING Albuterol/Ipratropium (Duoneb -) 1 amp NEB RTID [facility] Last Admin: 10/09/18 07:30 Dose: 1 amp Elvitegravir/Cobicis/Emtricit/Tenof (Genvoya (Non-Formulary)) 1 tab PO DAILY@ 0800 [facility] Last Admin: 10/09/18 13:22 Dose: 1 tab Gabapentin (Neurontin -) 800 mg PO TID [facility] Last Admin: 10/09/18 13:21 Dose: 800 mg Heparin Sodium (Porcine) (Heparin -) 5,000 unit SQ BID [facility] Last Admin: 10/09/18 10:28 Dose: 5,000 unit Vancomycin HCl 1,250 mg/ (Dextrose) 250 mls @ 166.667 mls/hr IVPB Q24H [facility]; Protocol Last Admin: 10/08/18 15:37 Dose: 166.667 mls/hr Piperacillin Sod/Tazobactam (Sod 3.375 gm/ Dextrose) 50 mls @ 100 mls/hr IVPB Q8H-IV [facility]; Protocol Last Admin: 10/09/18 10:27 Dose: 100 mls/hr Methadone HCl 40 mg/ Methadone (HCl 10 mg) 50 mg PO DAILY [facility] Last Admin: 10/09/18 10:26 Dose: 50 mg Methylprednisolone Sodium Succinate (Solu-Medrol -) 40 mg IVPUSH DAILY [facility] Last Admin: 10/09/18 10:28 Dose: 40 mg Olanzapine (Zyprexa -) 20 mg PO HS [facility] Last Admin: 10/08/18 21:08 Dose: 20 mg Sertraline HCl (Zoloft -) 200 mg PO HS [facility] Last Admin: 10/08/18 21:09 Dose: 200 mg - Objective Vital Signs: Vital Signs Temperature 98.8 F 10/09/18 09:03 Pulse Rate 90 10/09/18 09:03 Respiratory Rate 20 10/09/18 09:03 Blood Pressure 139/66 10/09/18 09:03 O2 Sat by Pulse Oximetry (%) 96 10/08/18 20:21 Constitutional: Yes: No Distress, Calm Cardiovascular: Yes: Regular Rate and Rhythm Respiratory: Yes: Regular, Poor Air Entry Gastrointestinal: Yes: Normal Bowel Sounds, Soft Musculoskeletal: Yes: WNL Extremities: Yes: WNL Neurological: Yes: Alert, Oriented Psychiatric: Yes: Alert, Oriented Labs: CBC, BMP 10/07/18 19:30 10/07/18 09:20 INR, PTT INR 1.11 (0.83-1.09) H 10/07/18 09:20 Assessment/Plan Problem List - Problems (1) HIV disease Code(s): B20 - HUMAN IMMUNODEFICIENCY VIRUS [HIV] DISEASE (2) Pneumonia Code(s): J18.9 - PNEUMONIA, UNSPECIFIED ORGANISM Qualifiers: Pneumonia type: due to unspecified organism Laterality: bilateral Lung location: lower lobe of lung Qualified Code(s): J18.1 - Lobar pneumonia, unspecified organism (3) Hep C w/o coma, chronic Code(s): B18.2 - CHRONIC VIRAL HEPATITIS C (4) Polyneuropathy Code(s): G62.9 - POLYNEUROPATHY, UNSPECIFIED (5) Asthma Code(s): J45.909 - UNSPECIFIED ASTHMA, UNCOMPLICATED Qualifiers: Asthma complication type: unspecified (6) Cocaine dependence Code(s): F14.20 - COCAINE DEPENDENCE, UNCOMPLICATED Qualifiers: Substance use status: uncomplicated Qualified Code(s): F14.20 - Cocaine dependence, uncomplicated (7) Degenerative disk disease Code(s): [id number] - (8) HIV positive Code(s): Z21 - ASYMPTOMATIC HUMAN IMMUNODEFICIENCY VIRUS INFECTION STATUS (9) Marijuana dependence Code(s): F12.20 - CANNABIS DEPENDENCE, UNCOMPLICATED (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
[2018-10-09] MEDS: VANCOMYCIN 1,250 MG in DEXTROSE 5%-WATER - 250 ML IVPB SCH (15:41)
[2018-10-09] MEDS: OLANZapine 10 MG TABLET PO SCH (21:10)
[2018-10-09] MEDS: SERTRALINE HCL 50 MG TABLET (FP) PO SCH (21:10)
[2018-10-10] MEDS: NYSTATIN 500,000 UNITS TABLET PO SCH ×4 (00:05→17:30)
[2018-10-10] MEDS ORDERED: PIPERACILLIN/TAZOBACTAM 3.375 GM VIAL IVPB ONE ×3 (00:52→17:06)
[2018-10-10] MEDS ORDERED: DEXTROSE 5%-WATER - 50 ML IVPB ONE ×3 (00:53→17:06)
[2018-10-10] MEDS: PIPERACILLIN/TAZOB 3.375 GM 3.375 GM in DEXTROSE 5%-WATER - 50 ML IVPB SCH ×3 (01:09→17:30)
[2018-10-10] MEDS: GABAPENTIN 400 MG CAPSULE (FP) PO SCH ×3 (05:54→21:01)
[2018-10-10] MEDS: ALBUTEROL SO4 2.5/IPRATROPIUM 0.5 INH SOL 3 ML VIAL.NEB. NEB SCH ×3 (07:03→21:05)
[2018-10-10] MEDS ORDERED: PT OWN MED DRAWER 7, Y5N ONE ×2 (07:47→17:46)
[2018-10-10] MEDS: methylPREDNISolone NA SUCC 40 MG/1 ML VIAL IVPUSH SCH (10:50)
[2018-10-10] MEDS: METHADONE 40 MG, METHADONE 10 MG PO SCH (10:50)
[2018-10-10] MEDS: HEPARIN NA (PORCINE) 5,000 UNITS/ML 1ML VIAL SQ SCH ×2 (10:50→21:01)
[2018-10-10] MEDS ORDERED: METHADONE HCL 40 MG DISPERSABLE TABLET ONE (10:53)
[2018-10-10] MEDS ORDERED: METHADONE HCL 10 MG TABLET ONE (10:53)
[2018-10-10] MEDS: ELVITEG/COB/EMTRI/TENOF (GENVOYA) TABLET (NF) PO SCH (11:04)
--- NOTE | 2018-10-10 14:19 | PN ---
Progress Note, Physician History of Present Illness: pulmonary alert,no distress,-sob,-cough - Current Medication List Current Medications: Active Medications Acetaminophen (Tylenol -) 650 mg PO Q6H PRN PRN Reason: FEVER Albuterol Sulfate (Ventolin 0.083% Nebulizer Soln -) 1 amp NEB Q4H PRN PRN Reason: SHORT OF BREATH/WHEEZING Albuterol/Ipratropium (Duoneb -) 1 amp NEB RTID [facility] Last Admin: 10/10/18 13:56 Dose: 1 amp Elvitegravir/Cobicis/Emtricit/Tenof (Genvoya (Non-Formulary)) 1 tab PO DAILY@ 0800 [facility] Last Admin: 10/10/18 11:04 Dose: Not Given Gabapentin (Neurontin -) 800 mg PO TID [facility] Last Admin: 10/10/18 13:30 Dose: 800 mg Heparin Sodium (Porcine) (Heparin -) 5,000 unit SQ BID [facility] Last Admin: 10/10/18 10:50 Dose: 5,000 unit Vancomycin HCl 1,250 mg/ (Dextrose) 250 mls @ 166.667 mls/hr IVPB Q24H [facility]; Protocol Last Admin: 10/09/18 15:41 Dose: 166.667 mls/hr Piperacillin Sod/Tazobactam (Sod 3.375 gm/ Dextrose) 50 mls @ 100 mls/hr IVPB Q8H-IV [facility]; Protocol Last Admin: 10/10/18 11:05 Dose: 100 mls/hr Methadone HCl 40 mg/ Methadone (HCl 10 mg) 50 mg PO DAILY [facility] Last Admin: 10/10/18 10:50 Dose: 50 mg Methylprednisolone Sodium Succinate (Solu-Medrol -) 40 mg IVPUSH DAILY [facility] Last Admin: 10/10/18 10:50 Dose: 40 mg Nystatin (Nystatin) 500,000 unit PO Q6HPO [facility] Last Admin: 10/10/18 11:55 Dose: 500,000 unit Olanzapine (Zyprexa -) 20 mg PO HS [facility] Last Admin: 10/09/18 21:10 Dose: 20 mg Sertraline HCl (Zoloft -) 200 mg PO HS [facility] Last Admin: 10/09/18 21:10 Dose: 200 mg - Objective Vital Signs: Vital Signs Temperature 98.5 F 10/10/18 08:54 Pulse Rate 70 10/10/18 08:54 Respiratory Rate 16 10/10/18 08:54 Blood Pressure 100/59 L 10/10/18 08:54 O2 Sat by Pulse Oximetry (%) 97 10/10/18 09:00 Constitutional: Yes: Calm, Thin Eyes: Yes: WNL HENT: Yes: WNL Neck: Yes: WNL Cardiovascular: Yes: Regular Rate and Rhythm, S1, S2 Respiratory: Yes: CTA Bilaterally Gastrointestinal: Yes: Normal Bowel Sounds, Soft Extremities: Yes: WNL Edema: No Labs: CBC, BMP Assessment/Plan Problem List - Problems (1) HIV disease Code(s): B20 - HUMAN IMMUNODEFICIENCY VIRUS [HIV] DISEASE (2) Pneumonia Code(s): J18.9 - PNEUMONIA, UNSPECIFIED ORGANISM Qualifiers: Pneumonia type: due to unspecified organism Laterality: bilateral Lung location: lower lobe of lung Qualified Code(s): J18.1 - Lobar pneumonia, unspecified organism [facility]INIC[facility] IMPROVING (3) Hep C w/o coma, chronic Code(s): B18.2 - CHRONIC VIRAL HEPATITIS C (4) Polyneuropathy Code(s): G62.9 - POLYNEUROPATHY, UNSPECIFIED (5) Asthma Code(s): J45.909 - UNSPECIFIED ASTHMA, UNCOMPLICATED Qualifiers: Asthma complication type: unspecified (6) Cocaine dependence Code(s): F14.20 - COCAINE DEPENDENCE, UNCOMPLICATED Qualifiers: Substance use status: uncomplicated Qualified Code(s): F14.20 - Cocaine dependence, uncomplicated (7) Degenerative disk disease Code(s): [id number] - (8) HIV positive Code(s): Z21 - ASYMPTOMATIC HUMAN IMMUNODEFICIENCY VIRUS INFECTION STATUS (9) Marijuana dependence Code(s): F12.20 - CANNABIS DEPENDENCE, UNCOMPLICATED (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
--- NOTE | 2018-10-10 14:47 | PN ---
Progress Note, Physician History of Present Illness: patient stable breathing well no new issues - Current Medication List Current Medications: Active Medications Acetaminophen (Tylenol -) 650 mg PO Q6H PRN PRN Reason: FEVER Albuterol Sulfate (Ventolin 0.083% Nebulizer Soln -) 1 amp NEB Q4H PRN PRN Reason: SHORT OF BREATH/WHEEZING Albuterol/Ipratropium (Duoneb -) 1 amp NEB RTID [facility] Last Admin: 10/10/18 13:56 Dose: 1 amp Elvitegravir/Cobicis/Emtricit/Tenof (Genvoya (Non-Formulary)) 1 tab PO DAILY@ 0800 [facility] Last Admin: 10/10/18 11:04 Dose: Not Given Gabapentin (Neurontin -) 800 mg PO TID [facility] Last Admin: 10/10/18 13:30 Dose: 800 mg Heparin Sodium (Porcine) (Heparin -) 5,000 unit SQ BID [facility] Last Admin: 10/10/18 10:50 Dose: 5,000 unit Vancomycin HCl 1,250 mg/ (Dextrose) 250 mls @ 166.667 mls/hr IVPB Q24H [facility]; Protocol Last Admin: 10/09/18 15:41 Dose: 166.667 mls/hr Piperacillin Sod/Tazobactam (Sod 3.375 gm/ Dextrose) 50 mls @ 100 mls/hr IVPB Q8H-IV [facility]; Protocol Last Admin: 10/10/18 11:05 Dose: 100 mls/hr Methadone HCl 40 mg/ Methadone (HCl 10 mg) 50 mg PO DAILY [facility] Last Admin: 10/10/18 10:50 Dose: 50 mg Methylprednisolone Sodium Succinate (Solu-Medrol -) 40 mg IVPUSH DAILY [facility] Last Admin: 10/10/18 10:50 Dose: 40 mg Nystatin (Nystatin) 500,000 unit PO Q6HPO [facility] Last Admin: 10/10/18 11:55 Dose: 500,000 unit Olanzapine (Zyprexa -) 20 mg PO HS [facility] Last Admin: 10/09/18 21:10 Dose: 20 mg Sertraline HCl (Zoloft -) 200 mg PO HS [facility] Last Admin: 10/09/18 21:10 Dose: 200 mg - Objective Vital Signs: Vital Signs Temperature 98.5 F 10/10/18 08:54 Pulse Rate 70 10/10/18 08:54 Respiratory Rate 16 10/10/18 08:54 Blood Pressure 100/59 L 10/10/18 08:54 O2 Sat by Pulse Oximetry (%) 97 10/10/18 09:00 Constitutional: Yes: No Distress, Calm Cardiovascular: Yes: Regular Rate and Rhythm Respiratory: Yes: Regular, CTA Bilaterally Gastrointestinal: Yes: Normal Bowel Sounds, Soft Musculoskeletal: Yes: WNL Extremities: Yes: WNL Neurological: Yes: Alert, Oriented Psychiatric: Yes: Alert, Oriented Labs: CBC, BMP 10/07/18 19:30 10/07/18 09:20 INR, PTT INR 1.11 (0.83-1.09) H 10/07/18 09:20 Assessment/Plan Problem List - Problems (1) HIV disease Code(s): B20 - HUMAN IMMUNODEFICIENCY VIRUS [HIV] DISEASE (2) Pneumonia Code(s): J18.9 - PNEUMONIA, UNSPECIFIED ORGANISM Qualifiers: Pneumonia type: due to unspecified organism Laterality: bilateral Lung location: lower lobe of lung Qualified Code(s): J18.1 - Lobar pneumonia, unspecified organism (3) Hep C w/o coma, chronic Code(s): B18.2 - CHRONIC VIRAL HEPATITIS C (4) Polyneuropathy Code(s): G62.9 - POLYNEUROPATHY, UNSPECIFIED (5) Asthma Code(s): J45.909 - UNSPECIFIED ASTHMA, UNCOMPLICATED Qualifiers: Asthma complication type: unspecified (6) Cocaine dependence Code(s): F14.20 - COCAINE DEPENDENCE, UNCOMPLICATED Qualifiers: Substance use status: uncomplicated Qualified Code(s): F14.20 - Cocaine dependence, uncomplicated (7) Degenerative disk disease Code(s): [id number] - (8) HIV positive Code(s): Z21 - ASYMPTOMATIC HUMAN IMMUNODEFICIENCY VIRUS INFECTION STATUS (9) Marijuana dependence Code(s): F12.20 - CANNABIS DEPENDENCE, UNCOMPLICATED (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
[2018-10-10] MEDS: VANCOMYCIN 1,250 MG in DEXTROSE 5%-WATER - 250 ML IVPB SCH (15:16)
--- NOTE | 2018-10-10 16:19 | PN ---
Progress Note, Physician - Current Medication List Current Medications: Active Medications Acetaminophen (Tylenol -) 650 mg PO Q6H PRN PRN Reason: FEVER Albuterol Sulfate (Ventolin 0.083% Nebulizer Soln -) 1 amp NEB Q4H PRN PRN Reason: SHORT OF BREATH/WHEEZING Albuterol/Ipratropium (Duoneb -) 1 amp NEB RTID [facility] Last Admin: 10/10/18 13:56 Dose: 1 amp Elvitegravir/Cobicis/Emtricit/Tenof (Genvoya (Non-Formulary)) 1 tab PO DAILY@ 0800 [facility] Last Admin: 10/10/18 11:04 Dose: Not Given Gabapentin (Neurontin -) 800 mg PO TID [facility] Last Admin: 10/10/18 13:30 Dose: 800 mg Heparin Sodium (Porcine) (Heparin -) 5,000 unit SQ BID [facility] Last Admin: 10/10/18 10:50 Dose: 5,000 unit Vancomycin HCl 1,250 mg/ (Dextrose) 250 mls @ 166.667 mls/hr IVPB Q24H [facility]; Protocol Last Admin: 10/10/18 15:16 Dose: 166.667 mls/hr Piperacillin Sod/Tazobactam (Sod 3.375 gm/ Dextrose) 50 mls @ 100 mls/hr IVPB Q8H-IV [facility]; Protocol Last Admin: 10/10/18 11:05 Dose: 100 mls/hr Methadone HCl 40 mg/ Methadone (HCl 10 mg) 50 mg PO DAILY [facility] Last Admin: 10/10/18 10:50 Dose: 50 mg Methylprednisolone Sodium Succinate (Solu-Medrol -) 40 mg IVPUSH DAILY [facility] Last Admin: 10/10/18 10:50 Dose: 40 mg Nystatin (Nystatin) 500,000 unit PO Q6HPO [facility] Last Admin: 10/10/18 11:55 Dose: 500,000 unit Olanzapine (Zyprexa -) 20 mg PO HS [facility] Last Admin: 10/09/18 21:10 Dose: 20 mg Sertraline HCl (Zoloft -) 200 mg PO HS [facility] Last Admin: 10/09/18 21:10 Dose: 200 mg - Objective Vital Signs: Vital Signs Temperature 98.5 F 10/10/18 08:54 Pulse Rate 70 10/10/18 08:54 Respiratory Rate 16 10/10/18 08:54 Blood Pressure 100/59 L 10/10/18 08:54 O2 Sat by Pulse Oximetry (%) 97 10/10/18 09:00 Constitutional: Yes: No Distress HENT: Yes: Atraumatic Neck: Yes: Supple Cardiovascular: Yes: Regular Rate and Rhythm Respiratory: Yes: CTA Bilaterally Gastrointestinal: Yes: Normal Bowel Sounds Extremities: Yes: WNL Edema: No Peripheral Pulses WNL: Yes Neurological: Yes: Alert, Oriented Labs: CBC, BMP 10/07/18 19:30 10/07/18 09:20 INR, PTT INR 1.11 (0.83-1.09) H 10/07/18 09:20 Problem List - Problems (1) HIV disease Assessment/Plan: continue home meds awaiting for sputum results from other hospital Code(s): B20 - HUMAN IMMUNODEFICIENCY VIRUS [HIV] DISEASE (2) Pneumonia Assessment/Plan: on iv abx id consult Code(s): J18.9 - PNEUMONIA, UNSPECIFIED ORGANISM Qualifiers: Pneumonia type: due to unspecified organism Laterality: bilateral Lung location: lower lobe of lung Qualified Code(s): J18.1 - Lobar pneumonia, unspecified organism (3) Thrush, oral Assessment/Plan: on nystatin Code(s): B37.0 - CANDIDAL STOMATITIS (4) Hep C w/o coma, chronic Code(s): B18.2 - CHRONIC VIRAL HEPATITIS C
[2018-10-10] MEDS: OLANZapine 10 MG TABLET PO SCH (21:01)
[2018-10-10] MEDS: SERTRALINE HCL 50 MG TABLET (FP) PO SCH (21:01)
[2018-10-11] MEDS: NYSTATIN 500,000 UNITS TABLET PO SCH ×4 (00:30→17:59)
[2018-10-11] MEDS ORDERED: PIPERACILLIN/TAZOBACTAM 3.375 GM VIAL IVPB ONE ×3 (01:52→17:22)
[2018-10-11] MEDS ORDERED: DEXTROSE 5%-WATER - 50 ML IVPB ONE ×3 (01:53→17:22)
[2018-10-11] MEDS: PIPERACILLIN/TAZOB 3.375 GM 3.375 GM in DEXTROSE 5%-WATER - 50 ML IVPB SCH ×3 (02:17→18:00)
[2018-10-11] MEDS: GABAPENTIN 400 MG CAPSULE (FP) PO SCH ×3 (05:27→22:25)
[2018-10-11] MEDS: ALBUTEROL SO4 2.5/IPRATROPIUM 0.5 INH SOL 3 ML VIAL.NEB. NEB SCH ×2 (07:15→13:41)
[2018-10-11] MEDS ORDERED: PT OWN MED DRAWER 7, Y5N ONE ×3 (08:19→18:07)
[2018-10-11] MEDS: ELVITEG/COB/EMTRI/TENOF (GENVOYA) TABLET (NF) PO SCH (08:36)
[2018-10-11 08:46] LABS: BASO % 0.3 % (0-2.0); EOS % 1.4 % (0-4.5); HEMATOCRIT 30.4 % (32.4-45.2); HEMOGLOBIN 10.4 GM/dL (10.7-15.3); LYMPH % 28.8 % (8-40); MCH 29.6 pg (25.7-33.7); MCHC 34.1 g/dl (32.0-36.0); MEAN CELL VOLUME 86.8 fl (80-96); MONO % 9.3 % (3.8-10.2); NEUT % 60.2 % (42.8-82.8); RDW 17.9 % (11.6-15.6); WHITE BLOOD COUNT 7.8 K/mm3 (4.0-10.0)
[2018-10-11 09:13] LABS: ALBUMIN 2.5 g/dl (3.4-5.0); ALK PHOS 88 U/L (45-117); ANION GAP 6 MMOL/L (8-16); BILIRUBIN,TOTAL 0.2 mg/dL (0.2-1); BLOOD UREA NITROGEN 36 mg/dL (7-18); CALCIUM 8.5 mg/dL (8.5-10.1); CHLORIDE 105 mmol/L (98-107); CO2 28 mmol/L (21-32); CREATININE 0.9 mg/dL (0.55-1.3); GLUCOSE,RANDOM 109 mg/dL (74-106); POTASSIUM 4.5 mmol/L (3.5-5.1); SGOT/AST 12 U/L (15-37); SGPT/ALT 23 U/L (13-61); SODIUM 139 mmol/L (136-145); TOT PROT 7.3 g/dl (6.4-8.2)
[2018-10-11] MEDS ORDERED: METHADONE HCL 10 MG TABLET ONE (09:45)
[2018-10-11] MEDS ORDERED: METHADONE HCL 40 MG DISPERSABLE TABLET ONE (09:46)
[2018-10-11] MEDS: METHADONE 40 MG, METHADONE 10 MG PO SCH (09:54)
[2018-10-11] MEDS: HEPARIN NA (PORCINE) 5,000 UNITS/ML 1ML VIAL SQ SCH ×2 (09:55→22:23)
[2018-10-11] MEDS: methylPREDNISolone NA SUCC 40 MG/1 ML VIAL IVPUSH SCH (09:55)
[2018-10-11 11:13] LABS: ANISOCYTOSIS 1+; MACROCYTOSIS 0; TEAR DROP CELLS 1+
--- NOTE | 2018-10-11 12:25 | PN ---
Progress Note, Physician History of Present Illness: stable no new issues - Current Medication List Current Medications: Active Medications Acetaminophen (Tylenol -) 650 mg PO Q6H PRN PRN Reason: FEVER Albuterol Sulfate (Ventolin 0.083% Nebulizer Soln -) 1 amp NEB Q4H PRN PRN Reason: SHORT OF BREATH/WHEEZING Albuterol/Ipratropium (Duoneb -) 1 amp NEB RTID [facility] Last Admin: 10/11/18 07:15 Dose: 1 amp Elvitegravir/Cobicis/Emtricit/Tenof (Genvoya (Non-Formulary)) 1 tab PO DAILY@ 0800 [facility] Last Admin: 10/11/18 08:36 Dose: 1 tab Gabapentin (Neurontin -) 800 mg PO TID [facility] Last Admin: 10/11/18 05:27 Dose: 800 mg Heparin Sodium (Porcine) (Heparin -) 5,000 unit SQ BID [facility] Last Admin: 10/11/18 09:55 Dose: 5,000 unit Vancomycin HCl 1,250 mg/ (Dextrose) 250 mls @ 166.667 mls/hr IVPB Q24H [facility]; Protocol Last Admin: 10/10/18 15:16 Dose: 166.667 mls/hr Piperacillin Sod/Tazobactam (Sod 3.375 gm/ Dextrose) 50 mls @ 100 mls/hr IVPB Q8H-IV [facility]; Protocol Last Admin: 10/11/18 09:56 Dose: 100 mls/hr Methadone HCl 40 mg/ Methadone (HCl 10 mg) 50 mg PO DAILY [facility] Last Admin: 10/11/18 09:54 Dose: 50 mg Methylprednisolone Sodium Succinate (Solu-Medrol -) 40 mg IVPUSH DAILY [facility] Last Admin: 10/11/18 09:55 Dose: 40 mg Nystatin (Nystatin) 500,000 unit PO Q6HPO [facility] Last Admin: 10/11/18 12:03 Dose: 500,000 unit Olanzapine (Zyprexa -) 20 mg PO HS [facility] Last Admin: 10/10/18 21:01 Dose: 20 mg Sertraline HCl (Zoloft -) 200 mg PO HS [facility] Last Admin: 10/10/18 21:01 Dose: 200 mg - Objective Vital Signs: Vital Signs Temperature 98.4 F 10/11/18 06:00 Pulse Rate 68 10/11/18 06:00 Respiratory Rate 20 10/11/18 06:00 Blood Pressure 106/66 10/11/18 06:00 O2 Sat by Pulse Oximetry (%) 92 L 10/11/18 09:00 Constitutional: Yes: No Distress, Calm Cardiovascular: Yes: Regular Rate and Rhythm Respiratory: Yes: Regular, CTA Bilaterally Gastrointestinal: Yes: Normal Bowel Sounds, Soft Musculoskeletal: Yes: WNL Extremities: Yes: WNL Neurological: Yes: Alert, Oriented Psychiatric: Yes: Alert, Oriented Labs: CBC, BMP 10/11/18 07:30 10/11/18 07:30 INR, PTT INR 1.11 (0.83-1.09) H 10/07/18 09:20 Assessment/Plan Problem List - Problems (1) HIV disease Code(s): B20 - HUMAN IMMUNODEFICIENCY VIRUS [HIV] DISEASE (2) Pneumonia Code(s): J18.9 - PNEUMONIA, UNSPECIFIED ORGANISM Qualifiers: Pneumonia type: due to unspecified organism Laterality: bilateral Lung location: lower lobe of lung Qualified Code(s): J18.1 - Lobar pneumonia, unspecified organism (3) Hep C w/o coma, chronic Code(s): B18.2 - CHRONIC VIRAL HEPATITIS C (4) Polyneuropathy Code(s): G62.9 - POLYNEUROPATHY, UNSPECIFIED (5) Asthma Code(s): J45.909 - UNSPECIFIED ASTHMA, UNCOMPLICATED Qualifiers: Asthma complication type: unspecified (6) Cocaine dependence Code(s): F14.20 - COCAINE DEPENDENCE, UNCOMPLICATED Qualifiers: Substance use status: uncomplicated Qualified Code(s): F14.20 - Cocaine dependence, uncomplicated (7) Degenerative disk disease Code(s): [id number] - (8) HIV positive Code(s): Z21 - ASYMPTOMATIC HUMAN IMMUNODEFICIENCY VIRUS INFECTION STATUS (9) Marijuana dependence Code(s): F12.20 - CANNABIS DEPENDENCE, UNCOMPLICATED (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
--- NOTE | 2018-10-11 14:43 | PN ---
Progress Note, Physician History of Present Illness: pulmonary alert,no distress,-sob,min cough - Current Medication List Current Medications: Active Medications Acetaminophen (Tylenol -) 650 mg PO Q6H PRN PRN Reason: FEVER Albuterol Sulfate (Ventolin 0.083% Nebulizer Soln -) 1 amp NEB Q4H PRN PRN Reason: SHORT OF BREATH/WHEEZING Albuterol/Ipratropium (Duoneb -) 1 amp NEB RTID [facility] Last Admin: 10/11/18 13:41 Dose: 1 amp Elvitegravir/Cobicis/Emtricit/Tenof (Genvoya (Non-Formulary)) 1 tab PO DAILY@ 0800 [facility] Last Admin: 10/11/18 08:36 Dose: 1 tab Gabapentin (Neurontin -) 800 mg PO TID [facility] Last Admin: 10/11/18 05:27 Dose: 800 mg Heparin Sodium (Porcine) (Heparin -) 5,000 unit SQ BID [facility] Last Admin: 10/11/18 09:55 Dose: 5,000 unit Piperacillin Sod/Tazobactam (Sod 3.375 gm/ Dextrose) 50 mls @ 100 mls/hr IVPB Q8H-IV [facility]; Protocol Last Admin: 10/11/18 09:56 Dose: 100 mls/hr Methadone HCl 40 mg/ Methadone (HCl 10 mg) 50 mg PO DAILY [facility] Last Admin: 10/11/18 09:54 Dose: 50 mg Methylprednisolone Sodium Succinate (Solu-Medrol -) 40 mg IVPUSH DAILY [facility] Last Admin: 10/11/18 09:55 Dose: 40 mg Nystatin (Nystatin) 500,000 unit PO Q6HPO [facility] Last Admin: 10/11/18 12:03 Dose: 500,000 unit Olanzapine (Zyprexa -) 20 mg PO HS [facility] Last Admin: 10/10/18 21:01 Dose: 20 mg Sertraline HCl (Zoloft -) 200 mg PO HS [facility] Last Admin: 10/10/18 21:01 Dose: 200 mg - Objective Vital Signs: Vital Signs Temperature 98.4 F 10/11/18 06:00 Pulse Rate 68 10/11/18 06:00 Respiratory Rate 20 10/11/18 06:00 Blood Pressure 106/66 10/11/18 06:00 O2 Sat by Pulse Oximetry (%) 92 L 10/11/18 09:00 Constitutional: Yes: Calm, Thin Eyes: Yes: WNL HENT: Yes: WNL Neck: Yes: WNL Cardiovascular: Yes: Regular Rate and Rhythm, S1, S2 Respiratory: Yes: Diminished Gastrointestinal: Yes: Normal Bowel Sounds, Soft Extremities: Yes: WNL Edema: No Labs: CBC, BMP 10/11/18 07:30 10/11/18 07:30 INR, PTT INR 1.11 (0.83-1.09) H 10/07/18 09:20 Assessment/Plan Problem List - Problems (1) HIV disease Code(s): B20 - HUMAN IMMUNODEFICIENCY VIRUS [HIV] DISEASE (2) Pneumonia Code(s): J18.9 - PNEUMONIA, UNSPECIFIED ORGANISM Qualifiers: Pneumonia type: due to unspecified organism Laterality: bilateral Lung location: lower lobe of lung Qualified Code(s): J18.1 - Lobar pneumonia, unspecified organism CLINICALLY IMPROVING (3) Hep C w/o coma, chronic Code(s): B18.2 - CHRONIC VIRAL HEPATITIS C (4) Polyneuropathy Code(s): G62.9 - POLYNEUROPATHY, UNSPECIFIED (5) Asthma Code(s): J45.909 - UNSPECIFIED ASTHMA, UNCOMPLICATED Qualifiers: Asthma complication type: unspecified (6) Cocaine dependence Code(s): F14.20 - COCAINE DEPENDENCE, UNCOMPLICATED Qualifiers: Substance use status: uncomplicated Qualified Code(s): F14.20 - Cocaine dependence, uncomplicated (7) Degenerative disk disease Code(s): [id number] - (8) HIV positive Code(s): Z21 - ASYMPTOMATIC HUMAN IMMUNODEFICIENCY VIRUS INFECTION STATUS (9) Marijuana dependence Code(s): F12.20 - CANNABIS DEPENDENCE, UNCOMPLICATED (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
--- NOTE | 2018-10-11 19:11 | PN ---
Progress Note, Physician History of Present Illness: stable - Current Medication List Current Medications: Active Medications Acetaminophen (Tylenol -) 650 mg PO Q6H PRN PRN Reason: FEVER Albuterol Sulfate (Ventolin 0.083% Nebulizer Soln -) 1 amp NEB Q4H PRN PRN Reason: SHORT OF BREATH/WHEEZING Elvitegravir/Cobicis/Emtricit/Tenof (Genvoya (Non-Formulary)) 1 tab PO DAILY@ 0800 [facility] Last Admin: 10/11/18 08:36 Dose: 1 tab Gabapentin (Neurontin -) 800 mg PO TID [facility] Last Admin: 10/11/18 14:48 Dose: 800 mg Heparin Sodium (Porcine) (Heparin -) 5,000 unit SQ BID [facility] Last Admin: 10/11/18 09:55 Dose: 5,000 unit Piperacillin Sod/Tazobactam (Sod 3.375 gm/ Dextrose) 50 mls @ 100 mls/hr IVPB Q8H-IV [facility]; Protocol Last Admin: 10/11/18 18:00 Dose: 100 mls/hr Methadone HCl 40 mg/ Methadone (HCl 10 mg) 50 mg PO DAILY [facility] Last Admin: 10/11/18 09:54 Dose: 50 mg Nystatin (Nystatin) 500,000 unit PO Q6HPO [facility] Last Admin: 10/11/18 17:59 Dose: 500,000 unit Olanzapine (Zyprexa -) 20 mg PO HS [facility] Last Admin: 10/10/18 21:01 Dose: 20 mg Sertraline HCl (Zoloft -) 200 mg PO [facility] Last Admin: 10/10/18 21:01 Dose: 200 mg - Objective Vital Signs: Vital Signs Temperature 98.4 F 10/11/18 06:00 Pulse Rate 68 10/11/18 06:00 Respiratory Rate 20 10/11/18 06:00 Blood Pressure 106/66 10/11/18 06:00 O2 Sat by Pulse Oximetry (%) 92 L 10/11/18 09:00 Constitutional: Yes: No Distress HENT: Yes: Atraumatic Neck: Yes: Supple Cardiovascular: Yes: Regular Rate and Rhythm Respiratory: Yes: CTA Bilaterally Gastrointestinal: Yes: Normal Bowel Sounds Extremities: Yes: WNL Neurological: Yes: Alert, Oriented Labs: CBC, BMP 10/11/18 07:30 10/11/18 07:30 INR, PTT INR 1.11 (0.83-1.09) H 10/07/18 09:20 Problem List - Problems (1) HIV disease Assessment/Plan: continue home meds awaiting for sputum results from other hospital for afb Code(s): B20 - HUMAN IMMUNODEFICIENCY VIRUS [HIV] DISEASE (2) Pneumonia Assessment/Plan: on iv abx id consult Code(s): J18.9 - PNEUMONIA, UNSPECIFIED ORGANISM Qualifiers: Pneumonia type: due to unspecified organism Laterality: bilateral Lung location: lower lobe of lung Qualified Code(s): J18.1 - Lobar pneumonia, unspecified organism (3) Thrush, oral Assessment/Plan: on nystatin Code(s): B37.0 - CANDIDAL STOMATITIS (4) Hep C w/o coma, chronic Code(s): B18.2 - CHRONIC VIRAL HEPATITIS C
[2018-10-11] MEDS: SERTRALINE HCL 50 MG TABLET (FP) PO SCH (22:23)
[2018-10-11] MEDS: OLANZapine 10 MG TABLET PO SCH (22:24)
[2018-10-12] MEDS ORDERED: PIPERACILLIN/TAZOBACTAM 3.375 GM VIAL IVPB ONE ×2 (01:56→10:08)
[2018-10-12] MEDS ORDERED: DEXTROSE 5%-WATER - 50 ML IVPB ONE ×2 (01:56→10:08)
[2018-10-12] MEDS: PIPERACILLIN/TAZOB 3.375 GM 3.375 GM in DEXTROSE 5%-WATER - 50 ML IVPB SCH ×2 (02:39→10:14)
[2018-10-12] MEDS: NYSTATIN 500,000 UNITS TABLET PO SCH ×4 (05:38→18:40)
[2018-10-12] MEDS: GABAPENTIN 400 MG CAPSULE (FP) PO SCH ×3 (05:38→21:50)
[2018-10-12] MEDS ORDERED: PT OWN MED DRAWER 7, Y5N ONE ×2 (09:00→19:03)
[2018-10-12] MEDS: ELVITEG/COB/EMTRI/TENOF (GENVOYA) TABLET (NF) PO SCH (10:04)
[2018-10-12] MEDS ORDERED: METHADONE HCL 10 MG TABLET ONE (10:07)
[2018-10-12] MEDS ORDERED: METHADONE HCL 40 MG DISPERSABLE TABLET ONE (10:07)
[2018-10-12] MEDS: METHADONE 40 MG, METHADONE 10 MG PO SCH (10:13)
[2018-10-12] MEDS: HEPARIN NA (PORCINE) 5,000 UNITS/ML 1ML VIAL SQ SCH ×2 (10:13→21:51)
--- NOTE | 2018-10-12 13:03 | PN ---
Progress Note, Physician History of Present Illness: pulmonary alert,no complaints,-sob,-cough - Current Medication List Current Medications: Active Medications Acetaminophen (Tylenol -) 650 mg PO Q6H PRN PRN Reason: FEVER Albuterol Sulfate (Ventolin 0.083% Nebulizer Soln -) 1 amp NEB Q4H PRN PRN Reason: SHORT OF BREATH/WHEEZING Elvitegravir/Cobicis/Emtricit/Tenof (Genvoya (Non-Formulary)) 1 tab PO DAILY@ 0800 [facility] Last Admin: 10/12/18 10:04 Dose: 1 tab Gabapentin (Neurontin -) 800 mg PO TID [facility] Last Admin: 10/12/18 05:38 Dose: 800 mg Heparin Sodium (Porcine) (Heparin -) 5,000 unit SQ BID [facility] Last Admin: 10/12/18 10:13 Dose: 5,000 unit Piperacillin Sod/Tazobactam (Sod 3.375 gm/ Dextrose) 50 mls @ 100 mls/hr IVPB Q8H-IV [facility]; Protocol Last Admin: 10/12/18 10:14 Dose: 100 mls/hr Methadone HCl 40 mg/ Methadone (HCl 10 mg) 50 mg PO DAILY [facility] Last Admin: 10/12/18 10:13 Dose: 50 mg Nystatin (Nystatin) 500,000 unit PO Q6HPO [facility] Last Admin: 10/12/18 05:38 Dose: 500,000 unit Olanzapine (Zyprexa -) 20 mg PO HS [facility] Last Admin: 10/11/18 22:24 Dose: 20 mg Sertraline HCl (Zoloft -) 200 mg PO [facility] Last Admin: 10/11/18 22:23 Dose: 200 mg - Objective Vital Signs: Vital Signs Temperature 98.2 F 10/12/18 06:24 Pulse Rate 72 10/12/18 06:24 Respiratory Rate 20 10/12/18 06:24 Blood Pressure 100/80 10/12/18 06:24 O2 Sat by Pulse Oximetry (%) 94 L 10/11/18 21:00 Constitutional: Yes: Calm, Thin Eyes: Yes: WNL HENT: Yes: WNL Neck: Yes: WNL Cardiovascular: Yes: Regular Rate and Rhythm, S1, S2 Respiratory: Yes: Diminished Gastrointestinal: Yes: Normal Bowel Sounds, Soft Extremities: Yes: WNL Edema: No Labs: INR, PTT Assessment/Plan Problem List - Problems (1) HIV disease Code(s): B20 - HUMAN IMMUNODEFICIENCY VIRUS [HIV] DISEASE (2) Pneumonia Code(s): J18.9 - PNEUMONIA, UNSPECIFIED ORGANISM Qualifiers: Pneumonia type: due to unspecified organism Laterality: bilateral Lung location: lower lobe of lung Qualified Code(s): J18.1 - Lobar pneumonia, unspecified organism CLINICALLY IMPROVING (3) Hep C w/o coma, chronic Code(s): B18.2 - CHRONIC VIRAL HEPATITIS C (4) Polyneuropathy Code(s): G62.9 - POLYNEUROPATHY, UNSPECIFIED (5) Asthma Code(s): J45.909 - UNSPECIFIED ASTHMA, UNCOMPLICATED Qualifiers: Asthma complication type: unspecified (6) Cocaine dependence Code(s): F14.20 - COCAINE DEPENDENCE, UNCOMPLICATED Qualifiers: Substance use status: uncomplicated Qualified Code(s): F14.20 - Cocaine dependence, uncomplicated (7) Degenerative disk disease Code(s): [id number] - (8) HIV positive Code(s): Z21 - ASYMPTOMATIC HUMAN IMMUNODEFICIENCY VIRUS INFECTION STATUS (9) Marijuana dependence Code(s): F12.20 - CANNABIS DEPENDENCE, UNCOMPLICATED (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
--- NOTE | 2018-10-12 13:11 | PN ---
Progress Note, Physician History of Present Illness: stable no new issues breathing well - Current Medication List Current Medications: Active Medications Acetaminophen (Tylenol -) 650 mg PO Q6H PRN PRN Reason: FEVER Albuterol Sulfate (Ventolin 0.083% Nebulizer Soln -) 1 amp NEB Q4H PRN PRN Reason: SHORT OF BREATH/WHEEZING Elvitegravir/Cobicis/Emtricit/Tenof (Genvoya (Non-Formulary)) 1 tab PO DAILY@ 0800 [facility] Last Admin: 10/12/18 10:04 Dose: 1 tab Gabapentin (Neurontin -) 800 mg PO TID [facility] Last Admin: 10/12/18 05:38 Dose: 800 mg Heparin Sodium (Porcine) (Heparin -) 5,000 unit SQ BID [facility] Last Admin: 10/12/18 10:13 Dose: 5,000 unit Methadone HCl 40 mg/ Methadone (HCl 10 mg) 50 mg PO DAILY [facility] Last Admin: 10/12/18 10:13 Dose: 50 mg Nystatin (Nystatin) 500,000 unit PO Q6HPO [facility] Last Admin: 10/12/18 05:38 Dose: 500,000 unit Olanzapine (Zyprexa -) 20 mg PO [facility] Last Admin: 10/11/18 22:24 Dose: 20 mg Sertraline HCl (Zoloft -) 200 mg PO [facility] Last Admin: 10/11/18 22:23 Dose: 200 mg - Objective Vital Signs: Vital Signs Temperature 98.2 F 10/12/18 06:24 Pulse Rate 72 10/12/18 06:24 Respiratory Rate 20 10/12/18 09:00 Blood Pressure 100/80 10/12/18 06:24 O2 Sat by Pulse Oximetry (%) 94 L 10/12/18 09:00 Constitutional: Yes: No Distress, Calm Cardiovascular: Yes: Regular Rate and Rhythm Respiratory: Yes: Regular, CTA Bilaterally Gastrointestinal: Yes: Normal Bowel Sounds, Soft Musculoskeletal: Yes: WNL Extremities: Yes: WNL Neurological: Yes: Alert, Oriented Psychiatric: Yes: Alert, Oriented Labs: CBC, BMP 10/11/18 07:30 10/11/18 07:30 INR, PTT INR 1.11 (0.83-1.09) H 10/07/18 09:20 Assessment/Plan Problem List - Problems (1) HIV disease Code(s): B20 - HUMAN IMMUNODEFICIENCY VIRUS [HIV] DISEASE (2) Pneumonia Code(s): J18.9 - PNEUMONIA, UNSPECIFIED ORGANISM Qualifiers: Pneumonia type: due to unspecified organism Laterality: bilateral Lung location: lower lobe of lung Qualified Code(s): J18.1 - Lobar pneumonia, unspecified organism (3) Hep C w/o coma, chronic Code(s): B18.2 - CHRONIC VIRAL HEPATITIS C (4) Polyneuropathy Code(s): G62.9 - POLYNEUROPATHY, UNSPECIFIED (5) Asthma Code(s): J45.909 - UNSPECIFIED ASTHMA, UNCOMPLICATED Qualifiers: Asthma complication type: unspecified (6) Cocaine dependence Code(s): F14.20 - COCAINE DEPENDENCE, UNCOMPLICATED Qualifiers: Substance use status: uncomplicated Qualified Code(s): F14.20 - Cocaine dependence, uncomplicated (7) Degenerative disk disease Code(s): [id number] - (8) HIV positive Code(s): Z21 - ASYMPTOMATIC HUMAN IMMUNODEFICIENCY VIRUS INFECTION STATUS (9) Marijuana dependence Code(s): F12.20 - CANNABIS DEPENDENCE, UNCOMPLICATED (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 Code(s): F11.20 - OPIOID DEPENDENCE, UNCOMPLICATED (11) Opioid dependence Code(s): F11.20 - OPIOID DEPENDENCE, UNCOMPLICATED (12) Schizophrenia Code(s): F20.9 - SCHIZOPHRENIA, UNSPECIFIED Qualifiers: Schizophrenia type: unspecified Qualified Code(s): F20.9 - Schizophrenia, unspecified (13) Tobacco use disorder Code(s): F17.200 - NICOTINE DEPENDENCE, UNSPECIFIED, UNCOMPLICATED plan continue current mgmt incentive samuel will change to oral augmentin awaiting reports from [facility] about sputum reports rest as per the team if patients sputum are negative can be discharged on oral augmentin for 7 more days
--- NOTE | 2018-10-12 17:04 | PN ---
Progress Note, Physician History of Present Illness: stable - Current Medication List Current Medications: Active Medications Acetaminophen (Tylenol -) 650 mg PO Q6H PRN PRN Reason: FEVER Albuterol Sulfate (Ventolin 0.083% Nebulizer Soln -) 1 amp NEB Q4H PRN PRN Reason: SHORT OF BREATH/WHEEZING Amoxicillin/Clavulanate Potassium (Augmentin - 875mg Tablet) 1 tab PO BID@0800, 1730 [facility] Elvitegravir/Cobicis/Emtricit/Tenof (Genvoya (Non-Formulary)) 1 tab PO DAILY@ 0800 [facility] Last Admin: 10/12/18 10:04 Dose: 1 tab Gabapentin (Neurontin -) 800 mg PO TID [facility] Last Admin: 10/12/18 05:38 Dose: 800 mg Heparin Sodium (Porcine) (Heparin -) 5,000 unit SQ BID [facility] Last Admin: 10/12/18 10:13 Dose: 5,000 unit Methadone HCl 40 mg/ Methadone (HCl 10 mg) 50 mg PO DAILY [facility] Last Admin: 10/12/18 10:13 Dose: 50 mg Nystatin (Nystatin) 500,000 unit PO Q6HPO [facility] Last Admin: 10/12/18 05:38 Dose: 500,000 unit Olanzapine (Zyprexa -) 20 mg PO HS [facility] Last Admin: 10/11/18 22:24 Dose: 20 mg Sertraline HCl (Zoloft -) 200 mg PO [facility] Last Admin: 10/11/18 22:23 Dose: 200 mg - Objective Vital Signs: Vital Signs Temperature 98.2 F 10/12/18 06:24 Pulse Rate 72 10/12/18 06:24 Respiratory Rate 20 10/12/18 09:00 Blood Pressure 100/80 10/12/18 06:24 O2 Sat by Pulse Oximetry (%) 94 L 10/12/18 09:00 Constitutional: Yes: No Distress HENT: Yes: Atraumatic Neck: Yes: Supple Cardiovascular: Yes: Regular Rate and Rhythm Respiratory: Yes: CTA Bilaterally Extremities: Yes: WNL Edema: No Peripheral Pulses WNL: Yes Neurological: Yes: Alert, Oriented Labs: CBC, BMP 10/11/18 07:30 10/11/18 07:30 INR, PTT INR 1.11 (0.83-1.09) H 10/07/18 09:20 Problem List - Problems (1) HIV disease Assessment/Plan: continue home meds awaiting for sputum results from other hospital for afb Code(s): B20 - HUMAN IMMUNODEFICIENCY VIRUS [HIV] DISEASE (2) Pneumonia Assessment/Plan: on iv abx id consult Code(s): J18.9 - PNEUMONIA, UNSPECIFIED ORGANISM Qualifiers: Pneumonia type: due to unspecified organism Laterality: bilateral Lung location: lower lobe of lung Qualified Code(s): J18.1 - Lobar pneumonia, unspecified organism (3) Thrush, oral Assessment/Plan: on nystatin Code(s): B37.0 - CANDIDAL STOMATITIS (4) Hep C w/o coma, chronic Code(s): B18.2 - CHRONIC VIRAL HEPATITIS C
[2018-10-12] MEDS: AMOX TR/POT CLAV 875MG/125MG TABLETS (FP) PO SCH (18:37)
[2018-10-12] MEDS: SERTRALINE HCL 50 MG TABLET (FP) PO SCH (21:50)
[2018-10-12] MEDS: OLANZapine 10 MG TABLET PO SCH (21:50)
[2018-10-13] MEDS: NYSTATIN 500,000 UNITS TABLET PO SCH ×2 (00:50→06:14)
[2018-10-13] MEDS: GABAPENTIN 400 MG CAPSULE (FP) PO SCH (06:14)
[2018-10-13] MEDS ORDERED: PT OWN MED DRAWER 7, Y5N ONE (08:13)
[2018-10-13] MEDS: AMOX TR/POT CLAV 875MG/125MG TABLETS (FP) PO SCH (08:15)
[2018-10-13] MEDS: ELVITEG/COB/EMTRI/TENOF (GENVOYA) TABLET (NF) PO SCH (08:34)
[2018-10-13] MEDS ORDERED: METHADONE HCL 10 MG TABLET ONE (09:23)
[2018-10-13] MEDS ORDERED: METHADONE HCL 40 MG DISPERSABLE TABLET ONE (09:24)
[2018-10-13] MEDS: METHADONE 40 MG, METHADONE 10 MG PO SCH (09:25)
[2018-10-13] MEDS: HEPARIN NA (PORCINE) 5,000 UNITS/ML 1ML VIAL SQ SCH (09:28)
[2018-10-13 10:22] VITALS: BP 122/64; PULSE 98; TEMP 98.8
--- NOTE | 2018-10-13 12:22 | DS ---
Physical Examination Vital Signs: Vital Signs Temperature 98.8 F 10/13/18 09:00 Pulse Rate 98 H 10/13/18 09:00 Respiratory Rate 20 10/13/18 09:00 Blood Pressure 122/64 10/13/18 09:00 O2 Sat by Pulse Oximetry (%) 95 10/12/18 21:00 Constitutional: Yes: No Distress HENT: Yes: Atraumatic Neck: Yes: Supple Cardiovascular: Yes: Regular Rate and Rhythm Respiratory: Yes: CTA Bilaterally Gastrointestinal: Yes: Normal Bowel Sounds Extremities: Yes: WNL Edema: No Neurological: Yes: Alert, Oriented Labs: CBC, BMP 10/11/18 07:30 10/11/18 07:30 Discharge Summary Reason For Visit: PNEUMONIA,CANDIASIS OF MOUTH AND ESOPHAGUS,HIV Condition: Fair - Instructions Referrals: ON STAFF,NOT [Primary Care Provider] - Disposition: I.P. ALCOHOL/SUBS ABUSE REHAB - Home Medications Comprehensive Discharge Medication List: Ambulatory Orders Elviteg/Cob/Emtri/Tenof Alafen [Genvoya Tablet] 1 each PO DAILY 10/01/18 Gabapentin 800 mg PO TID 10/01/18 Olanzapine [Zyprexa] 20 mg PO HS 10/01/18 Sertraline HCl [Zoloft] 200 mg PO HS 10/01/18 Methadone (Detox) [Dolophine -] 50 mg PO DAILY 10/08/18 Amox-Tr/K Cl [Augmentin 875-125mg Tablet -] 1 tab PO BID@0800,1730 #14 tablet [facility]
== END 2018-10-13 11:35 | disposition other institution (70) | DRG 139 ==
LOC: JER 08:32 → JERBED 12:45 → J6S 18:41
PROVIDERS: ADMIT Internal Medicine; ATTEND Internal Medicine
DX: J18.9 Pneumonia, unspecified organism (principal); B18.2 Chronic viral hepatitis C; F17.210 Nicotine dependence, cigarettes, uncomplicated; J45.909 Unspecified asthma, uncomplicated; Z21 Asymptomatic human immunodeficiency virus [HIV] infection status; F20.9 Schizophrenia, unspecified; B37.0 Candidal stomatitis; F11.20 Opioid dependence, uncomplicated; F14.20 Cocaine dependence, uncomplicated; R64 Cachexia; Z68.21 Body mass index [BMI] 21.0-21.9, adult
CPT/HCPCS: 36415; 71045-TC-FY; 71046-TC-FY; 71250-TC; 80053; 80307; 81003; 81015; 82803; 83605; 83615; 84484; 85025; 85610; 85730; 86359; 86360; 87040; 87086; 87804; 93005; 93010; 94640; 99283-25; J1644; J7030

== ENCOUNTER 2018-10-13 11:00 | Inpatient (IN) | payer OTHER ==
[2018-10-13 11:40] VITALS: BMI 20.5
--- NOTE | 2018-10-13 12:40 | HP ---
CIWA Score - Admission Criteria OASAS Guidelines: Admission for Medically Managed Detox: Requires at least one of the followin. CIWA greater than 12 2. Seizures within the past 24 hours 3. Delirium tremens within the past 24 hours 4. Hallucinations within the past 24 hours 5. Acute intervention needed for co occurring medical disorder 6. Acute intervention needed for co occurring psychiatric disorder 7. Severe withdrawal that cannot be handled at a lower level of care (continued vomiting, continued diarrhea, abnormal vital signs) requiring intravenous medication and/or fluids 8. Admission ROS S - HPI Allergies/Adverse Reactions: Allergies Allergy/AdvReac Type Severity Reaction Status Date / Time shellfish derived Allergy Severe Difficulty Verified 10/13/18 12:07 Breathing NKDA Allergy Uncoded 10/13/18 12:09 History of Present Illness: patient here requesting rehab for cocaine and etoh use , s/p detox , rehab begun at this facility was transferred to [facility] , dx w/ pneumonia, d/c today on Augmentin bid x 14 doses . Patient reports eagerness to participate in program and complete rehab . PMhx : asthma, HIV ( dx 1998 , taking meds " when I can remember " program in [facility] , Hep C ( no tx , per pt active x 2-3 years ), SAD. PSHX : ectopic , r foot toe frx > 1 yr ago PSych : denies SI / HI . 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: Other (HIV neuropathy) Integumentary: reports: No Symptoms Reported Neuro: reports: Unsteady Gait Endocrine: reports: No Symptoms Reported Psychiatric: reports: Orientated x3, Agitated, Anxious Patient History - Patient Medical History Hx Anemia: No Hx Asthma: No Hx Chronic Obstructive Pulmonary Disease (COPD): No Hx Cancer: No Hx Cardiac Disorders: No Hx Congestive Heart Failure: No Hx Hypertension: No Hx Hypercholesterolemia: No Hx Pacemaker: No HX Cerebrovascular Accident: No Hx Seizures: No Hx Dementia: No Hx Diabetes: No Hx Gastrointestinal Disorders: No Hx Liver Disease: No Hx Genitourinary Disorders: No Hx Sexually Transmitted Disorders: No Hx Renal Disease (ESRD): No Hx Thyroid Disease: No Hx Human Immunodeficiency Virus (HIV): Yes (diagnosed 1998) Hx Hepatitis C: Yes (untreated 2016) Hx Depression: Yes Hx Suicide Attempt: No Hx Bipolar Disorder: No Hx Schizophrenia: Yes (schizoaffective disorder) - Patient Surgical History Past Surgical History: Yes Hx Neurologic Surgery: No Hx Cataract Extraction: No Hx Cardiac Surgery: No Hx Lung Surgery: No Hx Breast Surgery: No Hx Breast Biopsy: No Hx Abdominal Surgery: Yes (Etopic 2008) Hx Appendectomy: No Hx Cholecystectomy: No Hx Genitourinary Surgery: No Hx Section: No Hx Orthopedic Surgery: No Hx Hysterectomy: No Anesthesia Reaction: No - PPD History Previous Implant?: Yes Documented Results: Negative w/proof Implanted On Prior [facility] Admission?: Yes Date: 10/03/18 Results: 0 mm - Reproductive History Patient : No - Smoking Cessation Smoking history: Current every day smoker Have you smoked in the past 12 months: Yes Aproximately how many cigarettes per day: 20 Cigars Per Day: 0 Hx Chewing Tobacco Use: No Initiated information on smoking cessation: No - Substances Abused Cocaine Route: Injection Frequency: Daily Amount used: $500 Age of first use: 21 Date of Last Use: 10/01/18 Family Disease History - Family Disease History Family Disease History: Diabetes: Father, Respiratory: Mother (tobacco use) Admission Physical Exam S - Vital Signs Vital Signs: Vital Signs - 24 hr 10/13/18 11:39 Temperature 98.2 F Pulse Rate 70 Respiratory 18 Rate Blood Pressure 111/70 - Physical General Appearance: Yes: Mild Distress, Anxious HEENTM: Yes: EOMI, Hearing grossly Normal, Normocephalic, Normal Voice, Other ( missing many teeth oral thrush , 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 " from cocaine use ") Respiratory: Yes: Chest Non-Tender, Lungs Clear, Normal Breath Sounds Neck: Yes: No masses,lesions,Nodules, Trachea in good position Cardiology: Yes: Regular Rhythm, Regular Rate, S1, S2 Abdominal: Yes: Normal Bowel Sounds, Non Tender, Soft Genitourinary: Yes: Within Normal Limits Back: Yes: Normal Inspection Musculoskeletal: Yes: full range of Motion, Gait Steady Extremities: Yes: Normal Capillary Refill, Normal Range of Motion, Non-Tender Neurological: Yes: Motor Strength 5/5 Integumentary: Yes: Normal Color, Dry - Diagnostic (1) Polyneuropathy Current Visit: No Status: Chronic (2) Cocaine dependence Current Visit: Yes Status: Chronic Qualifiers: Substance use status: uncomplicated Qualified Code(s): F14.20 - Cocaine dependence, uncomplicated (3) Methadone maintenance therapy patient Current Visit: No Status: Chronic (4) Opioid dependence Current Visit: No Status: Chronic (5) Tobacco use disorder Current Visit: No Status: Chronic (6) Pneumonia Current Visit: No Status: Acute Qualifiers: Pneumonia type: due to unspecified organism Laterality: bilateral Lung location: lower lobe of lung Qualified Code(s): J18.1 - Lobar pneumonia, unspecified organism (7) Thrush of mouth and esophagus Current Visit: No Status: Acute (8) Asthma Current Visit: No Status: Chronic Qualifiers: Asthma complication type: unspecified [facility] Breath Alcohol Content Breath Alcohol Content: 0 Urine Pregancy Test - Result Urine Test Results: Negative- NO Line Present Urine Drug Screen - Results Drug Screen Negative: No Urine Drug Screen Results: BZO-Benzodiazepines, MTD-Methadone Inpatient Rehab Admission - Rehab Decision to Admit Inpatient rehab admission?: Yes - Initial Determination Are CD services needed?: Yes Free of communicable disease: Yes Not in need of hospitalization: Yes - Rehab Admission Criteria Previous failed treatment: Yes Poor recovery environment: Yes Comorbidities: Yes Lacks judgement: Yes Patient is meeting Inpatient Rehab admission criteria:: Yes
[2018-10-13] MEDS ORDERED: MAGNESIUM HYDROX 2400MG/30ML ORAL SUSPENSION 30 ML CUP PO PRN (12:47)
[2018-10-13] MEDS ORDERED: MAG HYDROX/AL HYDROX/SIMETH 30 ML UNIT-DOSE CUP PO PRN (12:47)
[2018-10-13] MEDS ORDERED: MAGNESIUM CITRATE 300 ML BOTTLE PO PRN (12:47)
[2018-10-13] MEDS ORDERED: IBUPROFEN 400 MG TABLET (FP) PO PRN (12:47)
[2018-10-13] MEDS ORDERED: MENTHOL/PHENOL 1 EACH UD MM PRN (12:47)
[2018-10-13] MEDS ORDERED: GABAPENTIN 400 MG CAPSULE (FP) PO SCH (14:15)
--- NOTE | 2018-10-13 14:40 | CONSULT ---
[facility] Psychiatric Consult - Data Date of interview: 10/13/18 Admission source: Transfer from [facility]. Identifying data: Patient has returned from the [facility] where she got treated for pneumonia. Ms Jones was initially admitted to [address] on 10/02/18, sent to [facility] on 10/07/18 due to fever + altered mental status. Back to [facility] for rehabilitation to safeguard sobriety and address issue of schizophrenia co-morbid with alcohol/opioid/cocaine/nicotine dependence. Patient is , a mother of three, domiciled, unemployed and supported on [employer]. Substance Abuse History: Confirmed by the patient in my interview. Patient admits to daily use of cocaine (IV) in the community. She is on methadone maintenance (60 mg/day) at [facility] ([facility]). Further details in current [facility] report as follows : Smoking history: Current every day smoker. Have you smoked in the past 12 months: Yes. Aproximately how many cigarettes per day: 40. Cigars Per Day: 0. Hx Chewing Tobacco Use: No. Initiated information on smoking cessation: Yes. 'Breaking Loose' booklet given: 10/01/18. - Substance & Tx. History. Hx Alcohol Use: No. Hx Substance Use: Yes. Substance Use Type : Alcohol, Cocaine, Heroin, Prescribed. Hx Substance Use Treatment: Yes ( completed detox at [facility] today 09/03/18). - Substances Abused. Alcohol. Frequency: Daily. Amount used: 2 pints of Vodka. Age of first use: 15. Date of Last Use: 09/26/18. Heroin. Route: Injection. Frequency: Daily. Amount used: 2 bundles. Age of first use: 49. Date of Last Use: . Cocaine. Route: Injection. Frequency: Daily. Amount used: $100. Age of first use: 21. Date of Last Use: 09/26/18 Medical History: Significant for HIV infection since 1998 (on antiretroviral medications), recent episode of pneumonia, hepatitis C, bronchial asthma, antecedent of endocarditis, disc disease, polyneuropathy and distant history of ectopic (2005). Psychiatric History: Patient endorses an extensive history of mental illness that warranted multiple psychiatric hospitalizations ([facility] + [facility]). Onset of emotional disturbances is self-reported as having occurred around age 26. Ms Jones admits to the diagnosis of " Schizophrenia and Bipolar Disorder ". She is currently under the care of Dr Peterson at the [facility] program. Current regimen of medications consists of zoloft 200 mg/day + gabapentin 800 mg/tid + trazodone 100 mg/hs + zyprexa 20 mg/hs in addition to methadone maintenance (60 mg/day). Patient reports a recent history of a suicide attempt via wrist-cutting in 2018 (scar seen of left wrist/forearm) . Physical/Sexual Abuse/Trauma History: Not discussed. Patient declines. Additional Comment: Urine Drug Screen Results: BZO-Benzodiazepines, MTD- Methadone. Noted. Mental Status Exam - Mental Status Exam Alert and Oriented to: Time, Place, Person Cognitive Function: Grossly Intact Patient Appearance: Well Groomed (thin habitus, poor oral hygiene) Mood: Hopeful, Euthymic Affect: Appropriate, Normal Range Patient Behavior: Appropriate, Cooperative Speech Pattern: Clear Voice Loudness: Normal Thought Process: Goal Oriented Thought Disorder: Not Present Hallucinations: Denies Suicidal Ideation: Denies Homicidal Ideation: Denies Insight/Judgement: Fair Sleep: Poorly, Difficulty falling asleep (wants trazodone ) Appetite: Fair Muscle strength/Tone: Normal Gait/Station: Normal Psychiatric Findings - Problem List ([place] 1, 2,3) (1) Opioid dependence on agonist therapy Current Visit: Yes Status: Chronic (2) Cocaine dependence Current Visit: Yes Status: Chronic Qualifiers: Substance use status: uncomplicated Qualified Code(s): F14.20 - Cocaine dependence, uncomplicated (3) Schizophrenia Current Visit: Yes Status: Chronic Qualifiers: Schizophrenia type: unspecified Qualified Code(s): F20.9 - Schizophrenia, unspecified (4) Nicotine dependence Current Visit: Yes Status: Chronic (5) Insomnia Current Visit: Yes Status: Chronic - Initial Treatment Plan Initial Treatment Plan: Psychoeducation. Sleep hygiene. AA/NA meetings. Support. Psychotherapy : group, individual. Teachings on strategies of relapse prevention. Medical follow-up as indicated. Records were reviewed. Psychiatric notes (Dr Huggins + Dr Brown) are appreciated. In view of the findings of Dr Brown on 10/06/18 (marked alteration of mental status), will modify doses of some psychotropic medications as follows : zoloft 100 mg po daily + zyprexa 20 mg po hs + gabapentin 600 mg po tid. Trazodone held for now. Side effects/ benefits of each drug are discussed with the patient. Ms Joens has expressed her agreement with this plan of care. Doses will be re-adjusted by covering psychiatrists as clinically indicated. Observation. Medications verified via survey of the most recent pharmacy claims on 09/28/18 + 09/30/18 at [facility] [id number] showing refills for gabapentin 600 mg/tid + zoloft 200 mg/day + olanzapine 20 mg/hs + trazodone 150 mg/hs.
[2018-10-13] MEDS: AMOX TR/POT CLAV 875MG/125MG TABLETS (FP) PO SCH (18:31)
[2018-10-13] MEDS ORDERED: PT OWN MED DRAWER 7, Y5N ONE (19:55)
[2018-10-13] MEDS: GABAPENTIN 300 MG CAPSULE (FP) PO SCH (21:19)
[2018-10-13] MEDS: THIAMINE HCL 100 MG TABLET (FP) PO SCH (21:19)
[2018-10-13] MEDS: OLANZapine 10 MG TABLET PO SCH (21:19)
[2018-10-13 21:33] LABS: URINE APPEARANCE CLEAR; URINE BILIRUBIN NEGATIVE (<2.0 mg/dL); URINE COLOR LTYELLOW; URINE GLUCOSE (UA) NEGATIVE (NEGATIVE); URINE KETONE NEGATIVE (NEGATIVE); URINE LEUK ESTERASE NEGATIVE (NEGATIVE); URINE NITRITE NEGATIVE (NEGATIVE); URINE PROTEIN NEGATIVE (NEGATIVE); URINE UROBILINOGEN NEGATIVE mg/dL (0.2-1.0)
[2018-10-13] MEDS ORDERED: SERTRALINE HCL 50 MG TABLET (FP) PO SCH (22:00)
[2018-10-14] MEDS: GABAPENTIN 300 MG CAPSULE (FP) PO SCH ×3 (06:16→21:33)
[2018-10-14] MEDS: AMOX TR/POT CLAV 875MG/125MG TABLETS (FP) PO SCH ×2 (07:00→17:29)
[2018-10-14] MEDS ORDERED: METHADONE HCL 10 MG TABLET ONE (08:41)
[2018-10-14] MEDS ORDERED: METHADONE HCL 40 MG DISPERSABLE TABLET ONE (08:42)
[2018-10-14] MEDS ORDERED: METHADONE HCL 10 MG TABLET (FOR DETOX USE ONLY) PO SCH (10:00)
[2018-10-14] MEDS: METHADONE 40 MG, METHADONE 10 MG PO SCH (10:37)
[2018-10-14] MEDS: PRENATAL VITAMINS W/ FOLIC ACID TABLET (FP) PO SCH (10:38)
[2018-10-14] MEDS: SERTRALINE HCL 50 MG TABLET (FP) PO SCH (10:38)
[2018-10-14] MEDS: ELVITEG/COB/EMTRI/TENOF (GENVOYA) TABLET (NF) PO SCH (10:38)
--- NOTE | 2018-10-14 11:01 | PN ---
[facility] Progress Note Note: PATIENT INFORMED RN THAT SHE WANTS INCREASE IN GABAPENTIN DOSE SHE WAS TREATED WITH HIGHER DOSAGE IN PAST. EXTERNAL HISTORY SHOWS LAST PRESCRIPTION FOR GABAPENTIN 600MG. PATIENT ALSO ON MMTP AND IS NOTED FALLING ASLEEP AT TIMES DURING THE DAY. WILL NOT INCREASE GABAPENTIN DUE TO RISK OF INCREASE SEDATION WITH HIGHER DOSE. CONTINUE TO MONITOR CLINICALLY. Vital Signs Temperature 98.4 F 10/14/18 09:30 Pulse Rate 84 10/14/18 09:30 Respiratory Rate 20 10/14/18 09:30 Blood Pressure 113/65 10/14/18 09:30 O2 Sat by Pulse Oximetry (%)
[2018-10-14] MEDS: ALBUTEROL SO4 8 GM HFA INHALER IH PRN (14:16)
[2018-10-14] MEDS: OLANZapine 10 MG TABLET PO SCH (21:33)
[2018-10-14] MEDS: THIAMINE HCL 100 MG TABLET (FP) PO SCH (21:33)
[2018-10-15] MEDS: GABAPENTIN 300 MG CAPSULE (FP) PO SCH ×3 (06:22→21:23)
[2018-10-15] MEDS: AMOX TR/POT CLAV 875MG/125MG TABLETS (FP) PO SCH ×2 (07:45→16:54)
[2018-10-15] MEDS: ACETAMINOPHEN 325 MG TABLET (FP) PO PRN ×2 (07:46→21:23)
[2018-10-15] MEDS ORDERED: METHADONE HCL 10 MG TABLET ONE (08:25)
[2018-10-15] MEDS ORDERED: METHADONE HCL 40 MG DISPERSABLE TABLET ONE (08:26)
[2018-10-15] MEDS ORDERED: PT OWN MED DRAWER 7, Y5N ONE (08:28)
[2018-10-15] MEDS: PRENATAL VITAMINS W/ FOLIC ACID TABLET (FP) PO SCH (09:42)
[2018-10-15] MEDS: METHADONE 40 MG, METHADONE 10 MG PO SCH (09:42)
[2018-10-15] MEDS: SERTRALINE HCL 50 MG TABLET (FP) PO SCH (09:42)
[2018-10-15] MEDS: ELVITEG/COB/EMTRI/TENOF (GENVOYA) TABLET (NF) PO SCH (09:42)
[2018-10-15] MEDS: ALBUTEROL SO4 8 GM HFA INHALER IH PRN ×2 (11:20→19:00)
[2018-10-15] MEDS: OLANZapine 10 MG TABLET PO SCH (21:23)
[2018-10-15] MEDS: THIAMINE HCL 100 MG TABLET (FP) PO SCH (21:23)
[2018-10-16] MEDS: ACETAMINOPHEN 325 MG TABLET (FP) PO PRN (04:02)
[2018-10-16] MEDS: GABAPENTIN 300 MG CAPSULE (FP) PO SCH ×3 (06:09→21:01)
[2018-10-16] MEDS: AMOX TR/POT CLAV 875MG/125MG TABLETS (FP) PO SCH ×2 (08:22→17:41)
[2018-10-16] MEDS ORDERED: PT OWN MED DRAWER 7, Y5N ONE (08:57)
[2018-10-16] MEDS ORDERED: METHADONE HCL 10 MG TABLET ONE (10:07)
[2018-10-16] MEDS ORDERED: METHADONE HCL 40 MG DISPERSABLE TABLET ONE (10:07)
[2018-10-16] MEDS: METHADONE 40 MG, METHADONE 10 MG PO SCH (10:08)
[2018-10-16] MEDS: SERTRALINE HCL 50 MG TABLET (FP) PO SCH (10:09)
[2018-10-16] MEDS: PRENATAL VITAMINS W/ FOLIC ACID TABLET (FP) PO SCH (10:09)
[2018-10-16] MEDS: ELVITEG/COB/EMTRI/TENOF (GENVOYA) TABLET (NF) PO SCH (10:09)
[2018-10-16] MEDS ORDERED: FLUCONAZOLE 100 MG TABLET (UD) PO SCH (10:30)
--- NOTE | 2018-10-16 10:33 | PN ---
[facility] Progress Note Note: PATIENT SEEN FOR C/O DIFFICULTY SWALLOWING. PATIENT DENIES COUGH, FEVER AND SORE THROAT. Vital Signs Temperature 98.1 F 10/16/18 06:38 Pulse Rate 64 10/16/18 06:38 Respiratory Rate 16 10/16/18 06:38 Blood Pressure 108/59 L 10/16/18 06:38 O2 Sat by Pulse Oximetry (%) Laboratory Tests 10/13/18 15:40 Urine Color Ltyellow Urine Appearance Clear Urine pH 6.0 Ur Specific [place] 1.018 Urine Protein Negative Urine Glucose (UA) Negative Urine Ketones Negative Urine Blood Negative Urine Nitrite Negative Urine Bilirubin Negative Urine Urobilinogen Negative Ur Leukocyte Esterase Negative PE: ALERT AND ORIENTED X 3 SKIN WARM AND DRY MOUTH: PINK, MOIST, PHARYNX WITH + THRUSH NECK SUPPLE, NO JVD EXT FULL ROM, NO EDEMA A/P; THRUSH WILL START DIFLUCAN 100MG DAILY X 5 DAYS PATIENT REFUSED NYSTATIN S/S REFERRED TO DIETARY FOR PUREE DIET CONTINUE TO MONITOR
--- NOTE | 2018-10-16 12:03 | PN ---
Psychiatric Progress Note Vital Signs: Vital Signs Period Temp Pulse Resp BP Sys/Clark Pulse Ox Last 24 Hr 98.0 F-100.9 F 64-79 16-18 108-128/59-68 Date of Session: 10/16/18 Chief Complaint:: I am having some visual hallucinations once in a while. HPI: Patient addressed Opioid,Cocaine dependence comorbid with Schizophrenia. ROS: Significant for HIV+,Hep C. Current Medications: Active Medications Generic Name Dose Route Start Last Admin Trade Name Freq PRN Reason Stop Dose Admin Acetaminophen 650 mg 10/13/18 12:47 10/16/18 04:02 Tylenol - PO 650 mg Q4H PRN Administration FEVER Al Hydroxide/Mg Hydroxide 30 ml 10/13/18 12:47 Mylanta Oral Suspension - PO Q6H PRN DYSPEPSIA Albuterol Sulfate 2 puff 10/14/18 10:56 10/15/18 19:00 Ventolin Hfa Inhaler - IH 4 inhaler Q4H PRN Administration SHORT OF BREATH/WHEEZING Amoxicillin/Clavulanate Potassium 1 tab 10/13/18 17:30 10/16/18 08:22 Augmentin - 875mg Tablet PO 10/20/18 08:01 1 tab BID@0800,1730 MIRACLE Administration Clotrimazole 10 mg 10/16/18 14:00 Mycelex Bull's - PO 10/23/18 13:59 5XD MIRACLE Elvitegravir/Cobicis/Emtricit/Tenof 1 tab 10/14/18 10:00 10/16/18 10:09 Genvoya (Non-Formulary) PO 1 tab DAILY MIRACLE Administration Eucalyptus/Menthol/Phenol/Sorbitol 1 each 10/13/18 12:47 10/15/18 15:43 Cepastat Lozenge - MM 1 each Q4H PRN Administration SORE THROAT Gabapentin 600 mg 10/13/18 22:00 10/16/18 06:09 Neurontin - PO 600 mg TID MIRACLE Administration Ibuprofen 400 mg 10/13/18 12:47 Motrin - PO Q6H PRN Pain level 4-6 Magnesium Citrate 300 ml 10/13/18 12:47 Citroma - PO Q48H PRN CONSTIPATION Magnesium Hydroxide 30 ml 10/13/18 12:47 Milk Of Magnesia - PO DAILY PRN CONSTIPATION Melatonin 5 mg 10/13/18 22:00 Melatonin PO HS PRN INSOMNIA Methadone HCl 40 mg/ Methadone 50 mg 10/14/18 10:00 10/16/18 10:08 HCl 10 mg PO 10/20/18 09:59 50 mg DAILY MIRACLE Administration Olanzapine 20 mg 10/13/18 22:00 10/15/18 21:23 Zyprexa - PO 20 mg HS MIRACLE Administration Multivit/Folic Acid/Iron 1 tab 10/14/18 10:00 10/16/18 10:09 Vitamins (Sjr) - PO 1 tab DAILY MIRACLE Administration Sertraline HCl 100 mg 10/14/18 10:00 10/16/18 10:09 Zoloft - PO 100 mg DAILY MIRACLE Administration Thiamine HCl 100 mg 10/13/18 22:00 10/15/18 21:23 Vitamin B1 - PO 100 mg HS MIRACLE Administration Current Side Effect: No Lab tests ordered: No Lab tests reviewed: Yes Provider note:: Chart was revuewed,patient was seen in my office to address strange experience she is having niow."I see people,shadows.I had this condition before but now i am concern what if i have Alzheimer's disease? ". Patient states that she was responding on Haldol in the past and is wiling to restart it as needed with Cogentin. Supportive therapy provided focusing on properties of current medications. Haldol 5 mg po bid prn with Cogentin will be prdered today,patient verbalized agreement. Mental Status Exam - Mental Status Exam Alert and Oriented to: Time, Place, Person Cognitive Function: Grossly Intact Patient Appearance: Unkempt Mood: Sad Affect: Mood Congruent, Labile Patient Behavior: Cooperative Speech Pattern: Clear Voice Loudness: Normal Thought Process: Goal Oriented Thought Disorder: Present Hallucinations: Visual Suicidal Ideation: Denies Homicidal Ideation: Denies Insight/Judgement: Fair Sleep: Fair Appetite: Fair Muscle strength/Tone: Normal Gait/Station: Normal Psychiatric Treatment Plan - Problem List (1) Cocaine dependence Current Visit: Yes Qualifiers: Substance use status: uncomplicated Qualified Code(s): F14.20 - Cocaine dependence, uncomplicated (2) Nicotine dependence Current Visit: Yes (3) Opioid dependence on agonist therapy Current Visit: Yes (4) Schizophrenia Current Visit: Yes Qualifiers: Schizophrenia type: unspecified Qualified Code(s): F20.9 - Schizophrenia, unspecified (5) HIV disease Current Visit: No (6) Hep C w/o coma, chronic Current Visit: Yes (7) Pneumonia Current Visit: No Qualifiers: Pneumonia type: due to unspecified organism Laterality: bilateral Lung location: lower lobe of lung Qualified Code(s): J18.1 - Lobar pneumonia, unspecified organism
[2018-10-16] MEDS: BENZTROPINE MESYLATE 1 MG TABLET (FP) PO PRN ×2 (12:58→21:01)
[2018-10-16] MEDS: HALOPERIDOL 5 MG TABLET (FP) PO PRN ×2 (12:58→21:02)
[2018-10-16] MEDS: CLOTRIMAZOLE 10 MG TROCHE (FP) PO SCH ×3 (14:45→21:02)
[2018-10-16] MEDS: OLANZapine 10 MG TABLET PO SCH (21:01)
[2018-10-16] MEDS: MELATONIN 5 MG TABLETS PO PRN (21:03)
[2018-10-16] MEDS: THIAMINE HCL 100 MG TABLET (FP) PO SCH (21:04)
[2018-10-17] MEDS: GABAPENTIN 300 MG CAPSULE (FP) PO SCH ×3 (06:50→21:31)
[2018-10-17] MEDS: CLOTRIMAZOLE 10 MG TROCHE (FP) PO SCH ×5 (06:50→21:31)
[2018-10-17] MEDS: AMOX TR/POT CLAV 875MG/125MG TABLETS (FP) PO SCH ×2 (07:36→17:03)
[2018-10-17] MEDS ORDERED: METHADONE HCL 40 MG DISPERSABLE TABLET ONE (09:06)
[2018-10-17] MEDS ORDERED: METHADONE HCL 10 MG TABLET ONE (09:06)
[2018-10-17] MEDS: PRENATAL VITAMINS W/ FOLIC ACID TABLET (FP) PO SCH (09:47)
[2018-10-17] MEDS: METHADONE 40 MG, METHADONE 10 MG PO SCH (09:47)
[2018-10-17] MEDS: ELVITEG/COB/EMTRI/TENOF (GENVOYA) TABLET (NF) PO SCH (09:48)
[2018-10-17] MEDS: SERTRALINE HCL 50 MG TABLET (FP) PO SCH (09:48)
[2018-10-17] MEDS: HALOPERIDOL 5 MG TABLET (FP) PO PRN ×2 (09:48→21:34)
[2018-10-17] MEDS: BENZTROPINE MESYLATE 1 MG TABLET (FP) PO PRN ×2 (09:48→21:34)
[2018-10-17] MEDS: OLANZapine 10 MG TABLET PO SCH (21:31)
[2018-10-17] MEDS: THIAMINE HCL 100 MG TABLET (FP) PO SCH (21:31)
[2018-10-17] MEDS: ACETAMINOPHEN 325 MG TABLET (FP) PO PRN (21:34)
[2018-10-18] MEDS: CLOTRIMAZOLE 10 MG TROCHE (FP) PO SCH ×5 (06:27→21:39)
[2018-10-18] MEDS: GABAPENTIN 300 MG CAPSULE (FP) PO SCH ×3 (06:27→21:39)
[2018-10-18] MEDS: AMOX TR/POT CLAV 875MG/125MG TABLETS (FP) PO SCH ×2 (07:27→16:51)
[2018-10-18] MEDS ORDERED: METHADONE HCL 10 MG TABLET ONE (08:53)
[2018-10-18] MEDS ORDERED: METHADONE HCL 40 MG DISPERSABLE TABLET ONE (08:54)
[2018-10-18] MEDS: SERTRALINE HCL 50 MG TABLET (FP) PO SCH (09:31)
[2018-10-18] MEDS: METHADONE 40 MG, METHADONE 10 MG PO SCH (09:32)
[2018-10-18] MEDS: ELVITEG/COB/EMTRI/TENOF (GENVOYA) TABLET (NF) PO SCH (09:32)
[2018-10-18] MEDS: PRENATAL VITAMINS W/ FOLIC ACID TABLET (FP) PO SCH (09:34)
[2018-10-18] MEDS: BENZTROPINE MESYLATE 1 MG TABLET (FP) PO PRN (13:52)
[2018-10-18] MEDS: HALOPERIDOL 5 MG TABLET (FP) PO PRN (13:52)
[2018-10-18] MEDS: THIAMINE HCL 100 MG TABLET (FP) PO SCH (21:38)
[2018-10-18] MEDS: OLANZapine 10 MG TABLET PO SCH (21:39)
[2018-10-18] MEDS: MELATONIN 5 MG TABLETS PO PRN (21:40)
[2018-10-19] MEDS: GABAPENTIN 300 MG CAPSULE (FP) PO SCH ×3 (06:25→21:24)
[2018-10-19] MEDS: CLOTRIMAZOLE 10 MG TROCHE (FP) PO SCH ×2 (06:25→09:50)
[2018-10-19] MEDS: AMOX TR/POT CLAV 875MG/125MG TABLETS (FP) PO SCH ×2 (07:41→16:56)
[2018-10-19] MEDS ORDERED: PT OWN MED DRAWER 7, Y5N ONE (08:27)
[2018-10-19] MEDS ORDERED: METHADONE HCL 40 MG DISPERSABLE TABLET ONE (09:47)
[2018-10-19] MEDS: METHADONE 40 MG, METHADONE 10 MG PO SCH (09:47)
[2018-10-19] MEDS ORDERED: METHADONE HCL 10 MG TABLET ONE (09:47)
[2018-10-19] MEDS: PRENATAL VITAMINS W/ FOLIC ACID TABLET (FP) PO SCH (09:48)
[2018-10-19] MEDS: SERTRALINE HCL 50 MG TABLET (FP) PO SCH (09:48)
[2018-10-19] MEDS: ELVITEG/COB/EMTRI/TENOF (GENVOYA) TABLET (NF) PO SCH (09:49)
[2018-10-19] MEDS: TOLNAFTATE 1% CREAM 15 GM TUBE TP SCH ×2 (10:30→21:25)
--- NOTE | 2018-10-19 11:00 | PN ---
S Progress Note Note: PT C/O DRY, ITCHY RASH ON FEET. ALSO REPORTS MYCELEX JACQUELINE NOT WORKING FOR ORAL THRUSH. Vital Signs - 24 hr 10/19/18 10/19/18 10/19/18 00:30 06:53 09:16 Temperature 98.3 F 98.0 F Pulse Rate 71 91 H Respiratory 18 18 18 Rate Blood Pressure 102/66 123/69 ORAL EXAM: UNRESOLVED WHITISH PATCH TO TONGUE. FEET:DRY, SCALY SOLES OF FEET. PLAN:TINACTIN CREAM DIRECTED D/C MYCELEX JACQUELINE NYSTATIN SUSP DIRECTED
[2018-10-19] MEDS: NYSTATIN 500,000 UNITS/5 ML SUSPENSION PO SCH ×3 (14:45→23:34)
[2018-10-19] MEDS: BENZTROPINE MESYLATE 1 MG TABLET (FP) PO PRN (14:48)
[2018-10-19] MEDS: HALOPERIDOL 5 MG TABLET (FP) PO PRN (14:50)
[2018-10-19] MEDS: ALBUTEROL SO4 0.083% IH SOL 2.5 MG/3 ML VIAL.NEB. NEB PRN (18:45)
[2018-10-19] MEDS: THIAMINE HCL 100 MG TABLET (FP) PO SCH (21:24)
[2018-10-19] MEDS: OLANZapine 10 MG TABLET PO SCH (21:24)
[2018-10-19] MEDS: MELATONIN 5 MG TABLETS PO PRN (21:42)
[2018-10-20] MEDS ORDERED: METHADONE HCL 40 MG DISPERSABLE TABLET ONE ×2 (05:58→10:38)
[2018-10-20] MEDS ORDERED: METHADONE HCL 10 MG TABLET ONE ×2 (05:58→10:38)
[2018-10-20] MEDS ORDERED: METHADONE 40 MG, METHADONE 10 MG PO SCH (06:00)
[2018-10-20] MEDS: GABAPENTIN 300 MG CAPSULE (FP) PO SCH ×3 (06:30→21:39)
[2018-10-20] MEDS: NYSTATIN 500,000 UNITS/5 ML SUSPENSION PO SCH ×4 (06:30→23:21)
[2018-10-20] MEDS: ALBUTEROL SO4 8 GM HFA INHALER IH PRN (06:31)
[2018-10-20] MEDS: AMOX TR/POT CLAV 875MG/125MG TABLETS (FP) PO SCH (07:35)
[2018-10-20] MEDS ORDERED: PT OWN MED DRAWER 7, Y5N ONE ×2 (09:54→17:35)
[2018-10-20] MEDS: PRENATAL VITAMINS W/ FOLIC ACID TABLET (FP) PO SCH (09:57)
[2018-10-20] MEDS: ELVITEG/COB/EMTRI/TENOF (GENVOYA) TABLET (NF) PO SCH (09:57)
[2018-10-20] MEDS: SERTRALINE HCL 50 MG TABLET (FP) PO SCH (09:57)
[2018-10-20] MEDS: TOLNAFTATE 1% CREAM 15 GM TUBE TP SCH ×2 (09:58→21:44)
[2018-10-20] MEDS: METHADONE 40 MG, METHADONE 10 MG PO SCH (10:39)
[2018-10-20] MEDS: HALOPERIDOL 5 MG TABLET (FP) PO PRN (19:38)
[2018-10-20] MEDS: BENZTROPINE MESYLATE 1 MG TABLET (FP) PO PRN (19:38)
[2018-10-20] MEDS: OLANZapine 10 MG TABLET PO SCH (21:39)
[2018-10-20] MEDS: THIAMINE HCL 100 MG TABLET (FP) PO SCH (21:39)
[2018-10-20] MEDS: MELATONIN 5 MG TABLETS PO PRN (21:41)
[2018-10-21] MEDS: GABAPENTIN 300 MG CAPSULE (FP) PO SCH ×3 (06:09→21:18)
[2018-10-21] MEDS: NYSTATIN 500,000 UNITS/5 ML SUSPENSION PO SCH ×4 (06:09→23:06)
[2018-10-21] MEDS: PRENATAL VITAMINS W/ FOLIC ACID TABLET (FP) PO SCH (10:26)
[2018-10-21] MEDS: TOLNAFTATE 1% CREAM 15 GM TUBE TP SCH ×2 (10:26→21:20)
[2018-10-21] MEDS: SERTRALINE HCL 50 MG TABLET (FP) PO SCH (10:26)
[2018-10-21] MEDS ORDERED: METHADONE HCL 10 MG TABLET ONE (10:28)
[2018-10-21] MEDS ORDERED: METHADONE HCL 40 MG DISPERSABLE TABLET ONE (10:29)
[2018-10-21] MEDS: METHADONE 40 MG, METHADONE 10 MG PO SCH (10:30)
[2018-10-21] MEDS: ELVITEG/COB/EMTRI/TENOF (GENVOYA) TABLET (NF) PO SCH (10:30)
[2018-10-21] MEDS ORDERED: PT OWN MED DRAWER 7, Y5N ONE (10:30)
--- NOTE | 2018-10-21 10:42 | PN ---
Psychiatric Progress Note Vital Signs: Vital Signs Period Temp Pulse Resp BP Sys/Clark Pulse Ox Last 24 Hr 98.0 F 78 16-18 107/64 Date of Session: 10/21/18 Chief Complaint:: Bishop not sleeping and Bishop having Current Medications: Active Medications Generic Name Dose Route Start Last Admin Trade Name Freq PRN Reason Stop Dose Admin Acetaminophen 650 mg 10/13/18 12:47 10/17/18 21:34 Tylenol - PO 650 mg Q4H PRN Administration FEVER Al Hydroxide/Mg Hydroxide 30 ml 10/13/18 12:47 Mylanta Oral Suspension - PO Q6H PRN DYSPEPSIA Albuterol Sulfate 2 puff 10/14/18 10:56 10/20/18 06:31 Ventolin Hfa Inhaler - IH 2 inhaler Q4H PRN Administration SHORT OF BREATH/WHEEZING Albuterol Sulfate 1 amp 10/19/18 18:14 10/19/18 18:45 Ventolin 0.083% Nebulizer Soln - NEB 1 amp Q4H PRN Administration SHORT OF BREATH/WHEEZING Benztropine Mesylate 0.5 mg 10/16/18 12:04 10/20/18 19:38 Cogentin - PO 0.5 mg TID PRN Administration AGITATION Elvitegravir/Cobicis/Emtricit/Tenof 1 tab 10/14/18 10:00 10/21/18 10:30 Genvoya (Non-Formulary) PO 1 tab DAILY MIRACLE Administration Eucalyptus/Menthol/Phenol/Sorbitol 1 each 10/13/18 12:47 10/15/18 15:43 Cepastat Lozenge - MM 1 each Q4H PRN Administration SORE THROAT Gabapentin 600 mg 10/13/18 22:00 10/21/18 06:09 Neurontin - PO 600 mg TID MIRACLE Administration Haloperidol 5 mg 10/16/18 12:04 10/20/18 19:38 Haldol - PO 5 mg TID PRN Administration AGITATION Ibuprofen 400 mg 10/13/18 12:47 Motrin - PO Q6H PRN Pain level 4-6 Magnesium Citrate 300 ml 10/13/18 12:47 Citroma - PO Q48H PRN CONSTIPATION Magnesium Hydroxide 30 ml 10/13/18 12:47 Milk Of Magnesia - PO DAILY PRN CONSTIPATION Melatonin 5 mg 10/13/18 22:00 10/20/18 21:41 Melatonin PO 5 mg HS PRN Administration INSOMNIA Methadone HCl 40 mg/ Methadone 50 mg 10/20/18 10:00 10/21/18 10:30 HCl 10 mg PO 50 mg DAILY@1000 MIRACLE Administration Nystatin 500,000 units 10/19/18 12:00 10/21/18 06:09 Nystatin Oral Suspension - PO 500,000 units Q6HPO MIRACLE Administration Olanzapine 20 mg 10/13/18 22:00 10/20/18 21:39 Zyprexa - PO 20 mg HS MIRACLE Administration Multivit/Folic Acid/Iron 1 tab 10/14/18 10:00 10/21/18 10:26 Vitamins (Sjr) - PO 1 tab DAILY MIRACLE Administration Sertraline HCl 100 mg 10/14/18 10:00 10/21/18 10:26 Zoloft - PO 100 mg DAILY MIRACLE Administration Thiamine HCl 100 mg 10/13/18 22:00 10/20/18 21:39 Vitamin B1 - PO 100 mg HS MIRACLE Administration Tolnaftate 1 applic 10/19/18 10:00 10/21/18 10:26 Tinactin 1% Cream - TP 1 applic BID MIRACLE Administration Current Side Effect: No Lab tests ordered: No Lab tests reviewed: Yes Psychiatric Treatment Plan - Problem List (1) Cocaine dependence Current Visit: Yes Qualifiers: Substance use status: uncomplicated Qualified Code(s): F14.20 - Cocaine dependence, uncomplicated (2) Nicotine dependence Current Visit: Yes (3) Opioid dependence on agonist therapy Current Visit: Yes (4) Schizophrenia Current Visit: Yes Qualifiers: Schizophrenia type: unspecified Qualified Code(s): F20.9 - Schizophrenia, unspecified (5) HIV disease Current Visit: No (6) Hep C w/o coma, chronic Current Visit: Yes (7) Pneumonia Current Visit: No Qualifiers: Pneumonia type: due to unspecified organism Laterality: bilateral Lung location: lower lobe of lung Qualified Code(s): J18.1 - Lobar pneumonia, unspecified organism
--- NOTE | 2018-10-21 11:13 | PN ---
[facility] Progress Note Note: NURSE CALLED TO INFORM PT REQUESTING PSYCH RE-EVAL FOR MEDICATION DUE TO C/O DRY MOUTH AND PROBLEM SLEEPING. Vital Signs - 24 hr 10/21/18 10/21/18 00:30 06:40 Temperature 98.0 F Pulse Rate 78 Respiratory 16 18 Rate Blood Pressure 107/64 Laboratory Tests 10/13/18 15:40 Urine Color Ltyellow Urine Appearance Clear Urine pH 6.0 Ur Specific [place] 1.018 Urine Protein Negative Urine Glucose (UA) Negative Urine Ketones Negative Urine Blood Negative Urine Nitrite Negative Urine Bilirubin Negative Urine Urobilinogen Negative Ur Leukocyte Esterase Negative PSYCH RE-EVAL ORDERED FOR FOLLOW UP.
[2018-10-21] MEDS: BENZTROPINE MESYLATE 1 MG TABLET (FP) PO PRN (12:02)
[2018-10-21] MEDS: ALBUTEROL SO4 0.083% IH SOL 2.5 MG/3 ML VIAL.NEB. NEB PRN (14:17)
[2018-10-21] MEDS: OLANZapine 10 MG TABLET PO SCH (21:18)
[2018-10-21] MEDS: THIAMINE HCL 100 MG TABLET (FP) PO SCH (21:18)
[2018-10-21] MEDS: traZODone HCL 100 MG TABLET (FP) PO SCH (21:19)
[2018-10-22] MEDS: GABAPENTIN 300 MG CAPSULE (FP) PO SCH ×3 (06:23→21:07)
[2018-10-22] MEDS: NYSTATIN 500,000 UNITS/5 ML SUSPENSION PO SCH ×4 (06:23→23:05)
[2018-10-22] MEDS ORDERED: METHADONE HCL 10 MG TABLET ONE (08:18)
[2018-10-22] MEDS ORDERED: METHADONE HCL 40 MG DISPERSABLE TABLET ONE (08:19)
[2018-10-22] MEDS: METHADONE 40 MG, METHADONE 10 MG PO SCH (09:12)
[2018-10-22] MEDS: ELVITEG/COB/EMTRI/TENOF (GENVOYA) TABLET (NF) PO SCH (09:13)
[2018-10-22] MEDS: TOLNAFTATE 1% CREAM 15 GM TUBE TP SCH ×2 (09:14→21:07)
[2018-10-22] MEDS: SERTRALINE HCL 50 MG TABLET (FP) PO SCH (09:14)
[2018-10-22] MEDS: PRENATAL VITAMINS W/ FOLIC ACID TABLET (FP) PO SCH (09:14)
[2018-10-22] MEDS: HALOPERIDOL 5 MG TABLET (FP) PO PRN (09:17)
[2018-10-22] MEDS: BENZTROPINE MESYLATE 1 MG TABLET (FP) PO PRN (09:17)
[2018-10-22] MEDS ORDERED: PT OWN MED DRAWER 7, Y5N ONE (10:33)
[2018-10-22] MEDS ORDERED: COLLOIDAL OATMEAL 1 BAR EACH TP PRN (13:53)
[2018-10-22] MEDS: traZODone HCL 100 MG TABLET (FP) PO SCH (21:07)
[2018-10-22] MEDS: THIAMINE HCL 100 MG TABLET (FP) PO SCH (21:07)
[2018-10-22] MEDS: OLANZapine 10 MG TABLET PO SCH (21:07)
[2018-10-22] MEDS: diphenhydrAMINE HCL 25 MG CAPSULE (FP) PO PRN (21:10)
[2018-10-23] MEDS: GABAPENTIN 300 MG CAPSULE (FP) PO SCH ×3 (07:06→21:04)
[2018-10-23] MEDS: NYSTATIN 500,000 UNITS/5 ML SUSPENSION PO SCH ×4 (07:06→23:09)
[2018-10-23] MEDS ORDERED: METHADONE HCL 10 MG TABLET ONE (09:50)
[2018-10-23] MEDS ORDERED: METHADONE HCL 40 MG DISPERSABLE TABLET ONE (09:51)
[2018-10-23] MEDS: METHADONE 40 MG, METHADONE 10 MG PO SCH (09:52)
[2018-10-23] MEDS: SERTRALINE HCL 50 MG TABLET (FP) PO SCH (09:55)
[2018-10-23] MEDS: PRENATAL VITAMINS W/ FOLIC ACID TABLET (FP) PO SCH (09:55)
[2018-10-23] MEDS: ELVITEG/COB/EMTRI/TENOF (GENVOYA) TABLET (NF) PO SCH (09:55)
[2018-10-23] MEDS: TOLNAFTATE 1% CREAM 15 GM TUBE TP SCH ×2 (09:56→21:04)
--- NOTE | 2018-10-23 12:52 | PN ---
S Progress Note Note: LOGISTICS SERVICE REPRESENTATIVE SPOKE WITH PATIENT REGARDING ORAL THRUSH NYSTATIN TREATMENT. PATIENT REQUESTING DIFLUCAN. Vital Signs Temperature 98.5 F 10/23/18 07:12 Pulse Rate 84 10/23/18 07:12 Respiratory Rate 18 10/23/18 07:12 Blood Pressure 133/74 10/23/18 07:12 O2 Sat by Pulse Oximetry (%) Laboratory Tests 10/13/18 15:40 Urine Color Ltyellow Urine Appearance Clear Urine pH 6.0 Ur Specific [place] 1.018 Urine Protein Negative Urine Glucose (UA) Negative Urine Ketones Negative Urine Blood Negative Urine Nitrite Negative Urine Bilirubin Negative Urine Urobilinogen Negative Ur Leukocyte Esterase Negative PE: ALERT AND ORIENTED X 3 SKIN WARM AND DRY MOUTH: TONGUE/PHARYNX WITH RESOLVING WHITE PATCHES, MOIST, MUCOSA PINK EXT FULL ROM, AMB AD HARRY A/P THRUSH IMPROVING CONTINUE NYSTATIN S/S DIFLUCAN INTERACTION WITH HALDOL CONTINUE TO MONITOR
[2018-10-23] MEDS ORDERED: PT OWN MED DRAWER 7, Y5N ONE ×2 (16:19→21:05)
[2018-10-23] MEDS: OLANZapine 10 MG TABLET PO SCH (21:04)
[2018-10-23] MEDS: THIAMINE HCL 100 MG TABLET (FP) PO SCH (21:04)
[2018-10-23] MEDS: traZODone HCL 100 MG TABLET (FP) PO SCH (21:04)
[2018-10-23] MEDS: diphenhydrAMINE HCL 25 MG CAPSULE (FP) PO PRN (21:05)
[2018-10-24] MEDS: GABAPENTIN 300 MG CAPSULE (FP) PO SCH ×3 (06:34→21:04)
[2018-10-24] MEDS: NYSTATIN 500,000 UNITS/5 ML SUSPENSION PO SCH ×4 (06:35→23:10)
[2018-10-24] MEDS ORDERED: METHADONE HCL 10 MG TABLET ONE (08:29)
[2018-10-24] MEDS ORDERED: METHADONE HCL 40 MG DISPERSABLE TABLET ONE (08:29)
[2018-10-24] MEDS ORDERED: PT OWN MED DRAWER 7, Y5N ONE ×2 (08:30→22:31)
[2018-10-24] MEDS: ELVITEG/COB/EMTRI/TENOF (GENVOYA) TABLET (NF) PO SCH (09:48)
[2018-10-24] MEDS: SERTRALINE HCL 50 MG TABLET (FP) PO SCH (09:48)
[2018-10-24] MEDS: PRENATAL VITAMINS W/ FOLIC ACID TABLET (FP) PO SCH (09:48)
[2018-10-24] MEDS: TOLNAFTATE 1% CREAM 15 GM TUBE TP SCH ×2 (09:49→21:04)
[2018-10-24] MEDS: METHADONE 40 MG, METHADONE 10 MG PO SCH (09:49)
[2018-10-24] MEDS: THIAMINE HCL 100 MG TABLET (FP) PO SCH (21:04)
[2018-10-24] MEDS: diphenhydrAMINE HCL 25 MG CAPSULE (FP) PO PRN (21:04)
[2018-10-24] MEDS: traZODone HCL 100 MG TABLET (FP) PO SCH (21:04)
[2018-10-24] MEDS: OLANZapine 10 MG TABLET PO SCH (21:04)
[2018-10-25] MEDS: GABAPENTIN 300 MG CAPSULE (FP) PO SCH ×3 (06:06→21:13)
[2018-10-25] MEDS: NYSTATIN 500,000 UNITS/5 ML SUSPENSION PO SCH ×3 (06:07→19:15)
[2018-10-25] MEDS ORDERED: METHADONE HCL 40 MG DISPERSABLE TABLET ONE (08:24)
[2018-10-25] MEDS ORDERED: METHADONE HCL 10 MG TABLET ONE (08:24)
[2018-10-25] MEDS ORDERED: PT OWN MED DRAWER 7, Y5N ONE (08:27)
[2018-10-25] MEDS: METHADONE 40 MG, METHADONE 10 MG PO SCH (09:38)
[2018-10-25] MEDS: PRENATAL VITAMINS W/ FOLIC ACID TABLET (FP) PO SCH (09:38)
[2018-10-25] MEDS: ELVITEG/COB/EMTRI/TENOF (GENVOYA) TABLET (NF) PO SCH (09:39)
[2018-10-25] MEDS: TOLNAFTATE 1% CREAM 15 GM TUBE TP SCH ×2 (09:39→21:14)
[2018-10-25] MEDS: SERTRALINE HCL 50 MG TABLET (FP) PO SCH (09:39)
[2018-10-25] MEDS: BENZTROPINE MESYLATE 1 MG TABLET (FP) PO PRN (19:26)
[2018-10-25] MEDS: HALOPERIDOL 5 MG TABLET (FP) PO PRN (19:26)
[2018-10-25] MEDS: OLANZapine 10 MG TABLET PO SCH (21:13)
[2018-10-25] MEDS: traZODone HCL 100 MG TABLET (FP) PO SCH (21:13)
[2018-10-25] MEDS: THIAMINE HCL 100 MG TABLET (FP) PO SCH (21:13)
[2018-10-26] MEDS: NYSTATIN 500,000 UNITS/5 ML SUSPENSION PO SCH ×5 (00:21→23:48)
[2018-10-26] MEDS: GABAPENTIN 300 MG CAPSULE (FP) PO SCH ×3 (06:21→21:13)
[2018-10-26] MEDS ORDERED: METHADONE HCL 10 MG TABLET ONE (08:32)
[2018-10-26] MEDS ORDERED: METHADONE HCL 40 MG DISPERSABLE TABLET ONE (08:33)
[2018-10-26] MEDS: SERTRALINE HCL 50 MG TABLET (FP) PO SCH (09:34)
[2018-10-26] MEDS: METHADONE 40 MG, METHADONE 10 MG PO SCH (09:34)
[2018-10-26] MEDS: PRENATAL VITAMINS W/ FOLIC ACID TABLET (FP) PO SCH (09:34)
[2018-10-26] MEDS: ELVITEG/COB/EMTRI/TENOF (GENVOYA) TABLET (NF) PO SCH (09:35)
[2018-10-26] MEDS ORDERED: PT OWN MED DRAWER 7, Y5N ONE (09:36)
[2018-10-26] MEDS: TOLNAFTATE 1% CREAM 15 GM TUBE TP SCH ×2 (09:37→21:15)
[2018-10-26] MEDS: BENZTROPINE MESYLATE 1 MG TABLET (FP) PO PRN (13:45)
[2018-10-26] MEDS: HALOPERIDOL 5 MG TABLET (FP) PO PRN (13:45)
[2018-10-26] MEDS: diphenhydrAMINE HCL 25 MG CAPSULE (FP) PO PRN (21:13)
[2018-10-26] MEDS: THIAMINE HCL 100 MG TABLET (FP) PO SCH (21:13)
[2018-10-26] MEDS: traZODone HCL 100 MG TABLET (FP) PO SCH (21:13)
[2018-10-26] MEDS: OLANZapine 10 MG TABLET PO SCH (21:13)
[2018-10-27] MEDS: NYSTATIN 500,000 UNITS/5 ML SUSPENSION PO SCH (06:43)
[2018-10-27] MEDS: GABAPENTIN 300 MG CAPSULE (FP) PO SCH (06:43)
[2018-10-27 07:33] VITALS: BP 122/79; PULSE 83; TEMP 98.8
[2018-10-27] MEDS ORDERED: METHADONE HCL 40 MG DISPERSABLE TABLET ONE (08:02)
[2018-10-27] MEDS ORDERED: METHADONE HCL 10 MG TABLET ONE (08:02)
[2018-10-27] MEDS ORDERED: PT OWN MED DRAWER 7, Y5N ONE (08:03)
[2018-10-27] MEDS: ELVITEG/COB/EMTRI/TENOF (GENVOYA) TABLET (NF) PO SCH (09:13)
[2018-10-27] MEDS: SERTRALINE HCL 50 MG TABLET (FP) PO SCH (09:14)
[2018-10-27] MEDS: PRENATAL VITAMINS W/ FOLIC ACID TABLET (FP) PO SCH (09:14)
[2018-10-27] MEDS: METHADONE 40 MG, METHADONE 10 MG PO SCH (09:21)
--- NOTE | 2018-10-27 09:22 | PN ---
[facility] Progress Note Note: Psychiatric nurse practitioner note: Patient will be discharged today 10/27/18. Patient is alert and oriented X3. Mood : Euthymic Affect: Appropriate. Patient reports having a productive stay in rehab and is optimistic about remaining abstinent from substance abuse. Patient is mentally stable for discharge. A 30 day prescription of Zoloft 100mg + Zyprexa 20mg + Trazodone 100mg will be electronically sent to patient's pharmacy at [facility], [address] [place] [address]. Face to Face time: 15 minutes
--- NOTE | 2018-10-27 09:47 | PN ---
[facility] Progress Note Note: REHAB DISCHARGE NOTE: PATIENT FOR D/C TODAY FROM REHAB. PATIENT IS MEDICALLY STABLE AND DENIES SI/HI. PATIENT STATES SHE ACCOMPLISHED ALL REHAB GOALS AND WILL CONTINUE WITH OUTPATIENT TREATMENT AT [facility]. PATIENT ENCOURAGED TO ATTEND GROUP MEETINGS TO PREVENT RELAPSE AND TO FOLLOW UP WITH PCP TO CONTINUE MEDICAL MANAGEMENT. ALBUTEROL, GENVOYA, GABAPENTIN AND NYSTATIN S/S MEDICATIONS SENT TO [facility]. Vital Signs Temperature 98.8 F 10/27/18 07:32 Pulse Rate 83 10/27/18 07:32 Respiratory Rate 18 10/27/18 07:32 Blood Pressure 122/79 10/27/18 07:32 O2 Sat by Pulse Oximetry (%) Laboratory Tests 10/13/18 15:40 Urine Color Ltyellow Urine Appearance Clear Urine pH 6.0 Ur Specific [place] 1.018 Urine Protein Negative Urine Glucose (UA) Negative Urine Ketones Negative Urine Blood Negative Urine Nitrite Negative Urine Bilirubin Negative Urine Urobilinogen Negative Ur Leukocyte Esterase Negative
== END 2018-10-27 09:30 | disposition home or self-care (01) | DRG 772 ==
LOC: YASAS 11:00 → Y3E 13:15
PROVIDERS: ADMIT Neuromusculoskeletal Medicine & OMM; ATTEND Neuromusculoskeletal Medicine & OMM
PROC: HZ42ZZZ Group Counseling for Substance Abuse Treatment, Cognitive-Behavioral (ICD-10-PCS; principal; 2018-10-13)
DX: F14.20 Cocaine dependence, uncomplicated (principal); F11.20 Opioid dependence, uncomplicated; F17.210 Nicotine dependence, cigarettes, uncomplicated; F20.9 Schizophrenia, unspecified; B20 Human immunodeficiency virus [HIV] disease; B37.0 Candidal stomatitis; B18.2 Chronic viral hepatitis C; J18.1 Lobar pneumonia, unspecified organism; G47.00 Insomnia, unspecified; G62.9 Polyneuropathy, unspecified; J45.909 Unspecified asthma, uncomplicated; Z91.013 Allergy to seafood
CPT/HCPCS: 81003; 94640